=== PATIENT | female | born 1960 | race Two or more races ===

== ENCOUNTER → 2024-08-24 | Outpatient (CLI) | payer OTHER, SELFPAY ==
[2024-08-24 17:56] LABS: Glucose Estimated Average 324 mg/dL (80-131); Hemoglobin A1C 12.9 % Hgb (4.8-6.0)
== END | disposition home or self-care (01) ==
LOC: COPL 15:16
PROVIDERS: PCP Family Medicine; Referring Provider Family Medicine; Visit Provider Family Medicine
DX: E11.65 Type 2 diabetes mellitus with hyperglycemia (principal)
CPT/HCPCS: 36415; 83036

== ENCOUNTER → 2024-09-29 | Outpatient (CLI) | payer OTHER, SELFPAY ==
--- NOTE | 2024-09-29 11:00 | XR_ITS ---
Examination: Screening digital mammography, bilateral Computer aided detection 3-D breast Tomosynthesis, bilateral Date and time of exam: September 29, 2024 1052 hours No priors Indication: Screening Technique: Nonmagnified MLO, CC views of the breasts to been obtained, reconstructed from 3-D Tomosynthesis images. R2 computer aided detection program utilized for evaluation of suspicious masses and/or abnormal calcifications. 3-D Tomosynthesis images obtained. Findings: The breasts are heterogeneously dense, which may obscure small masses Skin lesion left breast Benign calcifications 16 mm focal asymmetry upper outer left breast Impression: BI-RADS Category 0: Incomplete: Need additional imaging evaluation 16 mm focal asymmetry upper outer left breast, recommend follow-up spot tomographic views of this asymmetry as well as left breast sonography to complete workup
== END | disposition home or self-care (01) ==
LOC: CDIM 10:45
PROVIDERS: PCP Family Medicine; Referring Provider Family Medicine; Visit Provider Family Medicine
DX: Z12.31 Encounter for screening mammogram for malignant neoplasm of breast (principal); R92.8 Other abnormal and inconclusive findings on diagnostic imaging of breast; N64.89 Other specified disorders of breast
CPT/HCPCS: 77063; 77067

== ENCOUNTER → 2024-10-13 | Outpatient (CLI) | payer OTHER, SELFPAY ==
--- NOTE | 2024-10-13 16:00 | XR_ITS ---
Examination: CT left knee, without contrast. 2-D sagittal reconstructions. 2-D coronal reconstructions. 3-D reconstructions. Date and time of exam:October 13, 2024 1547 hours INDICATIONS: Left knee pain several years CTDI: vol (mGy):8.17 DLP: (mGycm):243 Technique: Multiple 1.25 mm axial sections of the left knee without intravenous contrast have been obtained. 2-D sagittal and coronal reconstructions have been obtained. 3-D reconstructions have been obtained. Low dose protocols were performed. One or more of the following dose reduction techniques were used; automated exposure control, adjustment of the mA and/or KV according to patient size, use of iterative reconstruction technique. 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
== END | disposition home or self-care (01) ==
LOC: CCTX 15:24
PROVIDERS: PCP Nurse Practitioner Family; Referring Provider Nurse Practitioner Family; Visit Provider Nurse Practitioner Family
DX: M17.12 Unilateral primary osteoarthritis, left knee (principal); M25.862 Other specified joint disorders, left knee
CPT/HCPCS: 73700

== ENCOUNTER 2024-11-12 19:28 | Emergency (ER) | payer OTHER, SELFPAY ==
--- NOTE | 2024-11-12 19:33 | XR_ITS ---
Examination: CT brain head without contrast. 2-D sagittal coronal reconstructions Date and time of exam:November 12, 2024 2137 hours Comparison January 01, 2024 INDICATIONS: Onset slurred speech confusion beginning 12 hours ago CTDI: vol (mGy):53.3 DLP: (mGycm):1042 Technique: Multiple CT axial sections of the brain have been obtained, 5 mm slice thickness. Contrast has not been administered. 2-D sagittal, coronal reconstructions have been obtained Low dose protocols were performed. One or more of the following dose reduction techniques were used; automated exposure control, adjustment of the mA and/or KV according to patient size, use of iterative reconstruction technique. Findings: No significant ventricular enlargement. Old infarct right cerebellar hemisphere Intra-axial or extra-axial hemorrhage density is not seen. No mass effect or midline shift Basal cisterns are not remarkable. Fourth ventricle is midline. Cranial vault intact. Impression: Negative for acute hemorrhage, mass effect or midline shift Consider brain MRI follow-up, stroke protocol
--- NOTE | 2024-11-12 19:34 | EDNOTE_ITS ---
<Statement entered by Mere Cavanaugh MD - 11/28/24 07:19> As co-signing physician, I was present and available for consult prn. I concur with the plan and care as documented by the midlevel provider. ED General RME/HPI General Chief complaint: Altered Mental Status Stated complaint: POSSIBLE STROKE LIKE SYMPTOMS Time Seen by Provider: 11/12/24 19:33 Arrival date/time: 11/12/24 19:28 CC: Altered mental status HPI last known normal was November 11 in the afternoon, greater than 24 hours ago. Patient has slurred speech. EMS reports stable vital signs and route state the patient also was recently given a liquid cough medicine. Patient denies fall. NIH scale is 0, patient is awake alert oriented with slurred speech. Related Data Home Medications ?Medication ?Instructions ?Recorded ?Confirmed hydrocodone 5 mg-acetaminophen 325 1 tab PO Q6HR PRN Pain (Scale 10/05/22 02/05/24 mg tablet Score 4-6) pantoprazole 40 mg tablet,delayed 40 mg PO DAILY 10/05/22 02/05/24 release furosemide 40 mg tablet 40 mg PO DAILY diuretic 01/03/24 02/05/24 Previous Rx's ?Medication ?Instructions ?Recorded blood sugar diagnostic (Accu-Chek #100 ea 02/18/24 Guide test strips) blood-glucose meter (Accu-Chek #1 02/18/24 Guide Glucose Meter) insulin glargine 100 unit/mL 42 unit (0.42 mL) subcut HS #10 mL 02/18/24 subcutaneous solution (Lantus U-100 Insulin) insulin regular human 100 unit/mL 14 unit (0.14 mL) subcut TIDWM #10 02/18/24 injection solution (Humulin R mL Regular U-100 Insulin) lancing device with lancets kit #1 ea 02/18/24 (Accu-Chek Multiclix Lancet kit) memantine 5 mg tablet 5 mg PO BID #60 tabs 02/18/24 sitagliptin phosphate 100 mg 100 mg PO QDAY #30 tabs 02/18/24 tablet (Januvia) trazodone 100 mg tablet 100 mg PO QDAY #30 tabs 02/18/24 ciprofloxacin HCl 500 mg tablet 500 mg PO BID #14 tabs 11/12/24 Allergies Allergy/AdvReac Type Severity Reaction Status Date / Time Penicillins Allergy Verified 05/12/22 16:43 Review of Systems Review of Systems Narrative Review of Systems: GEN: No fever, no chills, no weight loss EYES: No discharge, no visual changes, no pain HEENT: No ear pain, no congestion, no sore throat PULM: No shortness of breath, no cough, no congestion CV: No chest pain, no dyspnea on exertion, no palpitations GI: No nausea, no vomiting, no diarrhea, no pain, no constipation : No frequency, no urgency, no dysuria MUSC/SKEL: No joint pain, no back pain SKIN: No rash PSYCH: No hallucinations, no depression HEME/LYMPH: No easy bleeding or bruising tendencies NEURO: No weakness, no headache Past Medical History Past Medical History NEUROLOGIC: Positive Cerebrovascular Accident and Alzheimer's Disease CARDIAC: Positive Hypercholesterolemia and Hypertension; Negative Cardiac Disorders, Myocardial Infarction, Cardiac Arrhythmia, Atrial Fibrillation, Angina, Coronary Artery Disease, Atherosclerotic Heart Disease or Congestive Heart Failure (patient denies) RESPIRATORY: Negative Chronic Obstructive Pulmonary Disease (COPD) GASTROINTESTINAL: Positive Gastrointestinal Disorders and Gall Bladder Disease GENITOURINARY: Negative Renal Disease ENDOCRINE: Positive Diabetes Mellitus Type 2 and Systemic Lupus Erythematosus; Negative Diabetes Mellitus Type 1 Social History SMOKING STATUS: Current every day smoker SUBSTANCE USE: does not use ED Exam Narrative Physical exam: [General: Not in any acute distress Head normocephalic HEENT: Within acceptable limits Neck is supple nontender Chest equal chest rise nontender to palpation Respiratory: Clear to auscultation no wheezes crackles or rubs CV: Rate rhythm is regular no murmurs rubs or clicks Abdomen is distended secondary to body habitus soft nontender no masses positive bowel sounds all 4 quadrants Back: No CVA tenderness no spinous process tenderness from cervical spine thoracic and lumbar spine Skin: Intact no petechiae rash induration ulceration or crepitus Extremities: Moving all extremity against resistance cap refill less than 2 seconds neurosensory intact Neuro: Awake alert oriented x2, person and place, Glascow coma 15 no focal deficits] Course Quality Measures none Orders Category Date Time Status CT head/brain wo con Stat Exams 11/12/24 19:33 Completed B-Type Natriuretic Peptide Stat Lab 11/12/24 19:32 Completed CBC Stat Lab 11/12/24 19:32 Completed Comprehensive Metabolic Panel Stat Lab 11/12/24 19:32 Completed Drug Screen,Urine Stat Lab 11/12/24 20:32 Completed LDH (Lactate Dehydrogenase) Stat Lab 11/12/24 19:32 Completed Magnesium Stat Lab 11/12/24 19:32 Completed Partial Thromboplastin Time Stat Lab 11/12/24 19:32 Completed Prothrombin Time with INR Stat Lab 11/12/24 19:32 Completed Urinalysis Stat Lab 11/12/24 20:32 Completed cefTRIAXone/D5w 1gm IV premix [Rocephin/D5w 1gm IV Med 11/12/24 21:32 Discontinued premix] 50 ml IV X1 Vital Signs Vital signs: Vital Signs Temperature 98.7 F 11/12/24 20:00 Pulse Rate 104 H 11/12/24 20:00 Respiratory Rate 18 11/12/24 20:00 Blood Pressure 118/77 11/12/24 20:00 Pulse Oximetry (%) 95 11/12/24 20:00 Oxygen Delivery Method Room Air 11/12/24 20:00 [facility] Patient data External records reviewed:: [facility] previous records and EMS form Clinical information provided by:: patient and EMS Social determinants that could affect healthcare access:: none Patient has the following chronic illnesses:: TIA How is presenting disease/condition affected by chronic disease/condition?: u neffected by Evaluation data The following diagnostics were reviewed and interpreted by me:: lab results and radiology exam(s) Lab and/or radiology exams considered but not ordered:: None Interpretation Summary: UTI Medications Medications considered but not ordered:: None Medication administrations:: Medication Administration History Discontinued Medications Ceftriaxone Sodium/Dextrose (Rocephin/D5w 1gm Iv Premix) 50 mls @ 100 mls/hr IV X1 ONE Stop: 11/12/24 22:01 Last Admin: 11/12/24 22:05 Dose: 100 mls/hr Documented By: CONNOR None Consultations Consultation(s) initiated? (list below): No Diagnosis Differential Diagnosis ED Complaint MDM: Closed head injury intracranial hemorrhage UTI Most likely diagnosis given after review of the tests above:: UTI Admission Indicated Admission indicated?: not indicated Explain why admission is indicated or not indicated:: Stable for discharge Admission Request Was there a request for admission?: No Disposition Plan Disposition Plan: Discharge Discharge Attestation Discharge Attestation: The patient and all family members were given an opportunity to ask questions and understood the discharge instructions. Discharge instructions specifically effects, indications for sooner follow up or return to the emergency department, and the expected course of current diagnosis. Patient condition: Stable Medical Decision Making Differential Diagnosis Differential Diagnosis: Closed head injury intracranial hemorrhage UTI Lab Data 11/12/24 19:32 11/12/24 19:32 Labs: Lab Results 11/12/24 11/12/24 Range/Units 19:32 20:32 WBC 9.6 (3.6-11.0) Thou/mm3 RBC 3.63 L (4.00-5.20) Miln/mm3 Hgb 10.9 L (12.0-16.0) g/dL Hct 31.6 L (36.0-46.0) % MCV 87 (80-100) fL MCH 30.0 (25.0-35.0) pg MCHC 34.5 (31.0-37.0) g/dl RDW Std Deviation 39.3 (36.4-46.3) fL Plt Count 182 (140-440) Thou/mm3 Neut % (Auto) 72 (37-80) % Lymph % (Auto) 19 (10-50) % Brule % (Auto) 7 (0-12) % Eos % (Auto) 1 (0-10) % Baso % (Auto) 0 (0-2.5) % Neut # (Auto) 7.0 (1.8-7.7) Thou/mm3 Lymph # (Auto) 1.9 (1.0-4.8) Thou/mm3 Brule # (Auto) 0.6 (0.0-0.8) Thou/mm3 Eos # (Auto) 0.1 (0.0-0.5) Thou/mm3 Baso # (Auto) 0.0 (0.0-0.2) Thou/mm3 Immature Gran # (Auto) 0.05 H (0.00-0.00) Thou/mm3 Absolute Nucleated RBC 0.00 (0.00-0.00) Thou/mm3 Immature Gran % 1 H (0-0) % Nucleated RBC % 0 (0) /100 WBC PT 11.0 (9.0-12.2) Seconds INR 1.0 (0.9-1.3) APTT 29.0 (22.0-36.0) Seconds Sodium 136 (136-145) mMol/L Potassium 3.9 (3.4-5.1) mMol/L Chloride 102 (98-107) mMol/L Carbon Dioxide 26.6 (20.0-31.0) mMol/L Anion Gap 7 (7-16) BUN 25 H (9-23) mg/dL Creatinine 1.2 (0.6-1.3) mg/dL Estim Creat Clear Calc 54.5 L (>60) mL/min eGFR 51 L (60 - ) See Note BUN/Creatinine Ratio 21 H (12-20) Ratio Glucose 134 H (74-106) mg/dL Calculated Osmolality 278 (275-295) Calcium 9.1 (8.3-10.6) mg/dL Corrected Calcium 9.1 (8.5-10.1) mg/dL Magnesium 1.6 (1.6-2.6) mg/dL Total Bilirubin 0.3 (0.3-1.2) mg/dL AST 15 (0-34) U/L ALT 18 (10-49) U/L Alkaline Phosphatase 63 (46-116) U/L Lactate Dehydrogenase 205 (120-246) U/L B-Natriuretic Peptide < 20 (0-100) pg/mL Total Protein 7.0 (5.7-8.2) gm/dL Albumin 4.1 (3.4-4.8) gm/dL Globulin 2.9 (2.3-3.5) gm/dL Albumin/Globulin Ratio 1.4 (1.2-2.2) Ur Collection Type Clean Catch Urine Color Yellow (Lt Yel-Yel) Urine Clarity Turbid A (Clear/Hazy) Urine pH 6.0 (5.0-7.0) Ur Specific [place] 1.013 (1.001-1.035) Urine Protein 1+ A (Neg - Trace) Urine Glucose (UA) 1+ A (Negative) Urine Ketones Negative (Negative) Urine Blood 1+ A (Negative) Urine Nitrite Positive (Negative) Urine Bilirubin Negative (Negative) Urine Urobilinogen (Auto) Negative (0.0-1.0) mg/dL Ur Leukocyte Esterase Positive (Negative) Urine RBC 8 H (0-3) /hpf Urine WBC 635 H (0-5) /hpf Ur Squamous Epith Cells < 1 (0-5) /hpf Urine Bacteria 1+ A (None) Urine Opiates Screen Positive A (Negative) Urine Fentanyl Screen Negative (Negative) Ur Barbiturates Screen Negative (Negative) U Amphetamin/Meth Scrn Negative (Negative) U Benzodiazepines Scrn Negative (Negative) U Cocaine Metab Screen Negative (Negative) U Marijuana (THC) Screen Positive A (Negative) Discharge Plan Plan Patient Disposition: HOME (Self Care) Patient condition on transfer: Stable Prescriptions/Referrals Prescriptions/Med Rec: New ciprofloxacin HCl 500 mg tablet 500 mg PO BID Qty: 14 0RF No Action furosemide 40 mg tablet 40 mg PO DAILY hydrocodone-acetaminophen 5-325 mg tablet 1 tab PO Q6HR PRN (Reason: Pain (Scale Score 4-6)) pantoprazole 40 mg tablet,delayed release (DR/EC) 40 mg PO DAILY Patient Comments: TAKE ONE TABLET BY MOUTH EVERY DAY insulin glargine [Lantus U-100 Insulin] 100 unit/mL Solution 42 unit subcut HS Qty: 10 1RF Humulin R Regular U-100 Insuln 100 unit/mL Solution 14 unit subcut TIDWM Qty: 10 1RF trazodone 100 mg tablet 100 mg PO QDAY Qty: 30 0RF (DME) blood-glucose meter [Accu-Chek Guide Glucose Meter] Misc See Rx Instructions .Route Qty: 1 0RF Rx Instructions: As directed (DME) Accu-Chek Guide test strips Strip See Rx Instructions .Route Qty: 100 0RF Rx Instructions: As directed (DME) lancing device with lancets [Accu-Chek Multiclix Lancet] Kit See Rx Instructions .Route Qty: 1 0RF Rx Instructions: As directed Januvia 100 mg tablet 100 mg PO QDAY Qty: 30 0RF memantine 5 mg tablet 5 mg PO BID Qty: 60 0RF Referrals: No Primary/Family,Physician [Primary Care Provider] - In 1 week Problem List Clinical Impression: Urinary tract infection Patient/Caregiver Discharge Instructions Other Activity Instructions:: Avoid taking the cough syrup as you have in the past take the antibiotics as prescribed do not drink any alcohol during that time. Education Materials: ED CYSTITIS Female Adult Print Language: Croatian Stand Alone Forms: Gertrudis Award Info., Work/School Release, Patient Portal Info Letter PA/ROADWAY TECHNICIAN Supervising Physician PA/ROADWAY TECHNICIAN Supervising Physician: Yong Ly ENP
[2024-11-12 19:39] LABS: Basophils % (Auto) 0 % (0-2.5); Eosinophils # (Auto) 0.1 Thou/mm3 (0.0-0.5); Eosinophils % (Auto) 1 % (0-10); Hematocrit 31.6 % (36.0-46.0); Hemoglobin 10.9 g/dL (12.0-16.0); Immature Granulocytes % (Auto) 1 % (0-0); Immature Granulocytes Auto 0.05 Thou/mm3 (0.00-0.00); Lymphocytes # (Auto) 1.9 Thou/mm3 (1.0-4.8); Lymphocytes % (Auto) 19 % (10-50); Mean Corpuscular HGB Conc 34.5 g/dl (31.0-37.0); Mean Corpuscular Volume 87 fL (80-100); Monocytes # (Auto) 0.6 Thou/mm3 (0.0-0.8); Monocytes % (Auto) 7 % (0-12); Neutrophils % (Auto) 72 % (37-80); Nucleated Red Blood Cell % 0 /100 WBC (0); Platelet Count 182 Thou/mm3 (140-440); RDW Standard Deviation 39.3 fL (36.4-46.3); Red Blood Count 3.63 Miln/mm3 (4.00-5.20); White Blood Count 9.6 Thou/mm3 (3.6-11.0)
[2024-11-12 20:00] VITALS: BP 118/77; PULSE 104; RESP 18; TEMP 37.1; O2SAT 95
[2024-11-12 20:02] VITALS: BMI 37.9
[2024-11-12 20:04] LABS: B-Type Natriuretic Peptide < 20 pg/mL (0-100)
[2024-11-12 20:05] LABS: Alanine Aminotransferase 18 U/L (10-49); Albumin, Serum 4.1 gm/dL (3.4-4.8); Albumin/Globulin Ratio 1.4 (1.2-2.2); Alkaline Phosphatase 63 U/L (46-116); Anion Gap 7 (7-16); Aspartate Amino Transferase 15 U/L (0-34); BUN/Creatinine Ratio 21 Ratio (12-20); Bilirubin,Total 0.3 mg/dL (0.3-1.2); Blood Urea Nitrogen 25 mg/dL (9-23); Calcium 9.1 mg/dL (8.3-10.6); Calcium (Corrected) 9.1 mg/dL (8.5-10.1); Carbon Dioxide 26.6 mMol/L (20.0-31.0); Chloride 102 mMol/L (98-107); Creatinine (Component) 1.2 mg/dL (0.6-1.3); Estimated Creatinine Clearance 54.5 mL/min (>60); Globulin 2.9 gm/dL (2.3-3.5); Glucose 134 mg/dL (74-106); LDH (Lactate Dehydrogenase) 205 U/L (120-246); Magnesium 1.6 mg/dL (1.6-2.6); Osmolality,Calculated 278 (275-295); Potassium 3.9 mMol/L (3.4-5.1); Sodium 136 mMol/L (136-145); eGFR 51 See Note
[2024-11-12 20:13] VITALS: PULSE 108; RESP 18; O2SAT 94
[2024-11-12 21:11] LABS: Collection Type, Urine Clean Catch
[2024-11-12 21:26] LABS: Bacteria,Urine 1+; Bilirubin,Urine Negative (Negative); Blood,Urine 1+ (Negative); Clarity,Urine Turbid (Clear/Hazy); Color,Urine Yellow (Lt Yel-Yel); Glucose, Urine 1+ (Negative); Ketones,Urine Negative (Negative); Leukocyte Esterase,Urine Positive (Negative); Nitrite,Urine Positive (Negative); Protein,Urine 1+ (Neg - Trace); RBC,Urine 8 /hpf (0-3); Specific Gravity,Urine 1.013 (1.001-1.035); Squamous Epithelial Cell,Urine < 1 /hpf (0-5); Urobilinogen,Urine Negative mg/dL (0.0-1.0); WBC,Urine 635 /hpf (0-5)
[2024-11-12 21:38] LABS: Amphetamine/Methamp Scrn,U Negative (Negative); Barbiturate Screen,Urine Negative (Negative); Benzodiazepines Screen,Urine Negative (Negative); Benzoylecgonine Screen, Ur Negative (Negative); Fentanyl Screen,Urine Negative (Negative); Opiate Screen,Urine Positive (Negative); THC Screen,Urine Positive (Negative)
[2024-11-12] MEDS: cefTRIAXone/D5w 1gm IV premix 50 ML IV (22:05)
[2024-11-12 22:06] VITALS: BP 173/87; PULSE 116; RESP 18; O2SAT 95
[2024-11-12 22:52] VITALS: BP 138/64; PULSE 97; RESP 18; TEMP 37.1; O2SAT 95
== END 2024-11-12 23:17 | disposition home or self-care (01) ==
PROVIDERS: Registered Nurse General Practice; Emergency Provider Emergency Medicine
DX: R41.82 Altered mental status, unspecified (principal); N39.0 Urinary tract infection, site not specified; R47.81 Slurred speech
CPT/HCPCS: 36415; 70450; 80053; 80307; 81001; 83615; 83735; 83880; 85025; 85610; 85730; 99284; J0696

== ENCOUNTER → 2024-11-17 | Outpatient (CLI) | payer OTHER, SELFPAY ==
[2024-11-17 15:31] LABS: Glucose Estimated Average 240 mg/dL (80-131)
[2024-11-17 15:37] LABS: Amphetamine/Methamp Scrn,U Negative (Negative); Barbiturate Screen,Urine Negative (Negative); Benzodiazepines Screen,Urine Negative (Negative); Benzoylecgonine Screen, Ur Negative (Negative); Fentanyl Screen,Urine Positive (Negative); Opiate Screen,Urine Positive (Negative); THC Screen,Urine Positive (Negative)
== END | disposition home or self-care (01) ==
LOC: COPL 13:37
PROVIDERS: PCP Family Medicine; Referring Provider Family Medicine; Visit Provider Family Medicine
DX: M54.2 Cervicalgia (principal); Z71.51 Drug abuse counseling and surveillance of drug abuser; E11.65 Type 2 diabetes mellitus with hyperglycemia
CPT/HCPCS: 36415; 80307; 83036

== ENCOUNTER 2024-11-21 11:27 | Emergency (ER) | payer OTHER, SELFPAY ==
[2024-11-21 11:28] VITALS: BMI 30.9
[2024-11-21 11:36] VITALS: BP 165/88; PULSE 92; RESP 16; TEMP 36.9; O2SAT 96
--- NOTE | 2024-11-21 11:48 | XR_ITS ---
Examination: Foot, left, 3 views Technique: AP, oblique, lateral views foot, 3 views Date and time of exam: 04/02/2025 1157 hours INDICATIONS: Onset foot pain today no trauma FINDINGS: Status post bunionectomy and first metatarsal osteotomy Severe osteopenia Soft tissue vascular calcification Old appearing fracture at the base of the proximal phalanx third digit, clinical correlation advised Plantar posterior bony calcaneal spurs. No santos cortical bone destruction IMPRESSION: Old appearing fracture base proximal phalanx third digit, clinical correlation advised
--- NOTE | 2024-11-21 14:28 | PD.EDANKLE ---
Lower Extremity Injury RME/HPI General Chief Complaint: Ankle/Foot Injury Stated Complaint: LEFT FOOT WITH BRUISING AND PAIN Time Seen by Provider: 11/21/24 11:35 Arrival date/time: 11/21/24 11:27 64-year-old female presents emergency dept complaints of left foot pain with bruising dorsal aspect left foot at the base of the third and fourth digits Limitations: no limitations Related Data Home Medications ?Medication ?Instructions ?Recorded ?Confirmed hydrocodone 5 mg-acetaminophen 325 1 tab PO Q6HR PRN Pain (Scale 10/05/22 02/05/24 mg tablet Score 4-6) pantoprazole 40 mg tablet,delayed 40 mg PO DAILY 10/05/22 02/05/24 release furosemide 40 mg tablet 40 mg PO DAILY diuretic 01/03/24 02/05/24 Previous Rx's ?Medication ?Instructions ?Recorded blood sugar diagnostic (Accu-Chek #100 ea 02/18/24 Guide test strips) blood-glucose meter (Accu-Chek #1 ea 02/18/24 Guide Glucose Meter) insulin glargine 100 unit/mL 42 unit (0.42 mL) subcut HS #10 mL 02/18/24 subcutaneous solution (Lantus U-100 Insulin) insulin regular human 100 unit/mL 14 unit (0.14 mL) subcut TIDWM #10 02/18/24 injection solution (Humulin R mL Regular U-100 Insulin) lancing device with lancets kit #1 ea 02/18/24 (Accu-Chek Multiclix Lancet kit) memantine 5 mg tablet 5 mg PO BID #60 tabs 02/18/24 sitagliptin phosphate 100 mg 100 mg PO QDAY #30 tabs 02/18/24 tablet (Januvia) trazodone 100 mg tablet 100 mg PO QDAY #30 tabs 02/18/24 ciprofloxacin HCl 500 mg tablet 500 mg PO BID #14 tabs 11/12/24 Allergies Allergy/AdvReac Type Severity Reaction Status Date / Time Penicillins Allergy Verified 11/21/24 11:29 Review of Systems Review of Systems Systems Reviewed: All systems reviewed, normal except as documented Constitutional Constitutional: Reports system reviewed and no additional complaints, except as documented, Denies fever(s) and Denies headache(s) Eyes Eyes: Reports system reviewed and no additional complaints, except as documented and Denies blurry vision ENT Ears, Nose, Mouth, and Throat: Reports system reviewed and no additional complaints, except as documented, Denies headache(s), Denies nasal congestion and Denies nasal discharge Cardiovascular Cardiovascular: Reports system reviewed and no additional complaints, except as documented, Denies chest pain and Denies dyspnea Respiratory Respiratory: Reports system reviewed and no additional complaints, except as documented, Denies chest congestion, Denies cough and Denies dyspnea Gastrointestinal Gastrointestinal: Reports system reviewed and no additional complaints, except as documented and Denies abdominal pain Musculoskeletal Musculoskeletal: Reports system reviewed and no additional complaints, except as documented, Reports arthralgias, Denies deformity and Reports other (Bruising left foot) Integumentary/Breasts Skin/Breast: Reports system reviewed and no additional complaints, except as documented and Denies rash Neurologic Neurologic: Reports system reviewed and no additional complaints, except as documented, Reports as per HPI and Denies headache(s) Past Medical History Past Medical History NEUROLOGIC: Positive Cerebrovascular Accident and Alzheimer's Disease CARDIAC: Positive Hypercholesterolemia and Hypertension; Negative Cardiac Disorders, Myocardial Infarction, Cardiac Arrhythmia, Atrial Fibrillation, Angina, Coronary Artery Disease, Atherosclerotic Heart Disease or Congestive Heart Failure RESPIRATORY: Negative Chronic Obstructive Pulmonary Disease (COPD) GASTROINTESTINAL: Positive Gastrointestinal Disorders and Gall Bladder Disease GENITOURINARY: Negative Renal Disease ENDOCRINE: Positive Diabetes Mellitus Type 2 and Systemic Lupus Erythematosus; Negative Diabetes Mellitus Type 1 Social History SMOKING STATUS: Current every day smoker SUBSTANCE USE: does not use ED Exam General Limitations: Present no limitations General appearance: Present alert and in no apparent distress Head Head exam: Present atraumatic, normocephalic and normal inspection Eye Eye exam: Present normal appearance, PERRL and EOMI ENT ENT exam: Present normal exam, normal oropharynx and mucous membranes moist Neck Neck exam: Present normal inspection, full ROM and trachea midline Chest Chest inspection: Present normal inspection and symmetric chest wall rise Respiratory Respiratory exam: Present normal lung sounds bilaterally Cardiovascular Cardiovascular exam: Present regular rate, normal rhythm and normal heart sounds Abdominal Exam Abdominal exam: Present soft and normal bowel sounds Extremities Exam Extremities exam: Present full ROM and tenderness (Bruising left foot) Back Exam Back exam: Present normal inspection and full ROM Neurological Exam Neurological exam: Present alert, oriented X3 and CN II-XII intact Psychiatric Psychiatric exam: Present normal affect and normal mood Skin Skin exam: Present warm, dry and other (Bruising left foot) Course Quality Measures none Orders Category Date Time Status XR foot comp LT min 3V Stat Exams 11/21/24 11:48 Completed Vital Signs Vital signs: Vital Signs Temperature 98.5 F 11/21/24 11:36 Pulse Rate 92 11/21/24 11:36 Respiratory Rate 16 11/21/24 11:36 Blood Pressure 165/88 H 11/21/24 11:36 Pulse Oximetry (%) 96 11/21/24 11:36 Oxygen Delivery Method Room Air 11/21/24 11:36 O2 saturation 96% room air wnl Extremity Injury, Lower MDM Narrative MDM Narrative:: 64-year-old female presents emergency dept complaints of left foot pain with bruising dorsal aspect left foot at the base of the third and fourth digits On exam patient has tenderness left foot with bruising to the dorsal aspect left foot X-ray of the left foot obtained questionable fracture per radiologist Clinically patient does have fracture patient placed in Arden wrap given cast shoe Patient discharged home in no distress to follow-up with primary care doctor in the next 24 to 48 hours and for any worsening symptoms to return to the ER immediately Patient data External records reviewed:: [facility] previous records Clinical information provided by:: patient Social determinants that could affect healthcare access:: none Patient has the following chronic illnesses:: None How is presenting disease/condition affected by chronic disease/condition?: no chronic disease Evaluation data The following diagnostics were reviewed and interpreted by me:: radiology exam(s) Lab and/or radiology exams considered but not ordered:: Radiology obtain Interpretation Summary: Reviewed by me Medications / Prescriptions Medications or Prescriptions considered but not ordered:: Given Medication administrations:: Given Consultations Consultation(s) initiated? (list below): No Diagnosis Extremity Injury, Lower Differential Diagnosis: other (Foot fracture, foot sprain) Most likely diagnosis given after review of the tests above:: Foot fracture Admission Indicated Admission indicated?: not indicated Admission Request Was there a request for admission?: No Disposition Plan Disposition Plan: Discharge Discharge Attestation Discharge Attestation: The patient and all family members were given an opportunity to ask questions and understood the discharge instructions. Discharge instructions specifically effects, indications for sooner follow up or return to the emergency department, and the expected course of current diagnosis. Patient condition: Stable Discharge Plan Plan Patient Disposition: HOME (Self Care) Disposition Comment: Stable Prescriptions/Referrals Prescriptions/Med Rec: No Action furosemide 40 mg tablet 40 mg PO DAILY hydrocodone-acetaminophen 5-325 mg tablet 1 tab PO Q6HR PRN (Reason: Pain (Scale Score 4-6)) pantoprazole 40 mg tablet,delayed release (DR/EC) 40 mg PO DAILY Patient Comments: TAKE ONE TABLET BY MOUTH EVERY DAY insulin glargine [Lantus U-100 Insulin] 100 unit/mL Solution 42 unit subcut HS Qty: 10 1RF Humulin R Regular U-100 Insuln 100 unit/mL Solution 14 unit subcut TIDWM Qty: 10 1RF trazodone 100 mg tablet 100 mg PO QDAY Qty: 30 0RF (DME) blood-glucose meter [Accu-Chek Guide Glucose Meter] Misc See Rx Instructions .Route Qty: 1 0RF Rx Instructions: As directed (DME) Accu-Chek Guide test strips Strip See Rx Instructions .Route Qty: 100 0RF Rx Instructions: As directed (DME) lancing device with lancets [Accu-Chek Multiclix Lancet] Kit See Rx Instructions .Route Qty: 1 0RF Rx Instructions: As directed Januvia 100 mg tablet 100 mg PO QDAY Qty: 30 0RF memantine 5 mg tablet 5 mg PO BID Qty: 60 0RF ciprofloxacin HCl 500 mg tablet 500 mg PO BID Qty: 14 0RF Referrals: Zacarias Luis MD [Primary Care Provider] - In 1 week Problem List Clinical Impression: Fracture of toe of left foot Patient/Caregiver Discharge Instructions Education Materials: ED Fracture, Foot Additional Instructions: Please follow up with your primary care doctor in the next 24-48hrs for any worsening symptoms return here immediately Please remain nonweightbearing on left foot x 4 weeks Print Language: Kyrgyz Stand Alone Forms: Gertrudis Award Info., Patient Portal Info Letter PA/CYLINDER VALVE REPAIRER Supervising Physician PA/DEYANIRA Supervising Physician: Dr Vann
== END 2024-11-21 15:05 | disposition home or self-care (01) ==
PROVIDERS: Emergency Provider Emergency Medicine; PCP Family Medicine
DX: S90.32XA Contusion of left foot, initial encounter (principal); X58.XXXA Exposure to other specified factors, initial encounter
CPT/HCPCS: 73630; 99283

== ENCOUNTER → 2024-12-20 | Outpatient (CLI) | payer OTHER, SELFPAY ==
[2024-12-20 13:29] LABS: Misc Send Out* See Sep Rpt
[2024-12-20 13:54] LABS: Amphetamine/Methamp Scrn,U Negative (Negative); Barbiturate Screen,Urine Negative (Negative); Benzodiazepines Screen,Urine Negative (Negative); Benzoylecgonine Screen, Ur Negative (Negative); Fentanyl Screen,Urine Negative (Negative); Opiate Screen,Urine Positive (Negative); THC Screen,Urine Negative (Negative)
== END | disposition home or self-care (01) ==
LOC: COPL 13:05
PROVIDERS: PCP Internal Medicine; Referring Provider Internal Medicine; Visit Provider Internal Medicine
DX: M25.562 Pain in left knee (principal); Z79.891 Long term (current) use of opiate analgesic
CPT/HCPCS: 80307

== ENCOUNTER → 2025-02-08 | Outpatient (CLI) | payer OTHER, SELFPAY ==
--- NOTE | 2025-02-08 10:19 | XR_ITS ---
Examination: Knee, left , 3 views Technique: Knee AP, lateral, oblique 3 views Date and time of exam: February 08, 2025 1138 hours INDICATIONS: Patient fell 4 days ago with injury to the knee, knee pain. FINDINGS: On the AP view small radiolucency over the patella Moderate knee effusion Advanced narrowing medial joint space IMPRESSION: Recommend CT examination knee follow-up to exclude nondisplaced patellar fracture
== END | disposition home or self-care (01) ==
LOC: SDIM 09:54
PROVIDERS: PCP Family Medicine; Referring Provider Family Medicine; Visit Provider Family Medicine
DX: S89.92XA Unspecified injury of left lower leg, initial encounter (principal); W07.XXXA Fall from chair, initial encounter
CPT/HCPCS: 73562

== ENCOUNTER → 2025-02-19 | Outpatient (CLI) | payer OTHER, SELFPAY ==
[2025-02-19 12:40] LABS: Basophils % (Auto) 1 % (0-2.5); Eosinophils # (Auto) 0.3 Thou/mm3 (0.0-0.5); Eosinophils % (Auto) 4 % (0-10); Hematocrit 31.1 % (36.0-46.0); Hemoglobin 10.8 g/dL (12.0-16.0); Immature Granulocytes % (Auto) 0 % (0-0); Immature Granulocytes Auto 0.02 Thou/mm3 (0.00-0.00); Lymphocytes # (Auto) 2.4 Thou/mm3 (1.0-4.8); Lymphocytes % (Auto) 30 % (10-50); Mean Corpuscular HGB Conc 34.7 g/dl (31.0-37.0); Mean Corpuscular Hemoglobin 29.5 pg (25.0-35.0); Mean Corpuscular Volume 85 fL (80-100); Monocytes # (Auto) 0.4 Thou/mm3 (0.0-0.8); Monocytes % (Auto) 6 % (0-12); Neutrophils # (Auto) 4.8 Thou/mm3 (1.8-7.7); Neutrophils % (Auto) 60 % (37-80); Nucleated Red Blood Cell % 0 /100 WBC (0); Platelet Count 190 Thou/mm3 (140-440); RDW Standard Deviation 38.2 fL (36.4-46.3); Red Blood Count 3.66 Miln/mm3 (4.00-5.20)
[2025-02-19 12:50] LABS: Glucose Estimated Average 183 mg/dL (80-131)
[2025-02-19 12:58] LABS: Alanine Aminotransferase 14 U/L (10-49); Albumin, Serum 3.9 gm/dL (3.4-4.8); Alkaline Phosphatase 67 U/L (46-116); Anion Gap 8 (7-16); Aspartate Amino Transferase 15 U/L (0-34); BUN/Creatinine Ratio 19 Ratio (12-20); Bilirubin,Direct < 0.1 mg/dL (0.0-0.3); Bilirubin,Total 0.3 mg/dL (0.3-1.2); Blood Urea Nitrogen 19 mg/dL (9-23); Calcium 8.6 mg/dL (8.3-10.6); Carbon Dioxide 28.6 mMol/L (20.0-31.0); Cardiac Risk Estimate 4.1 RATIO (3.7-5.6); Chloride 105 mMol/L (98-107); Cholesterol 141 mg/dL (132-200); Glucose 210 mg/dL (74-106); HDL Cholesterol 34 mg/dL (40-60); LDL Cholesterol,Calculated 45 mg/dL (0-130); Osmolality,Calculated 291 (275-295); Sodium 142 mMol/L (136-145); Total Protein 6.9 gm/dL (5.7-8.2); Triglycerides 309 mg/dL (30-150); eGFR > 60 See Note
[2025-02-19 13:35] LABS: Creatinine MALB Rnd Ur 114 mg/dL (30-125); Microalbumin Creat Ratio 333 mg/gCrea (<30); Microalbumin, Random Urine > 380 mg/L (0-300)
[2025-02-23 06:40] LABS: Fecal Globin Result NOT DETECTED (NOT DETECTED)
== END | disposition home or self-care (01) ==
LOC: COPL 11:47
PROVIDERS: PCP Family Medicine; Referring Provider Family Medicine; Visit Provider Family Medicine
DX: Z00.00 Encounter for general adult medical examination without abnormal findings (principal); E11.65 Type 2 diabetes mellitus with hyperglycemia; I10 Essential (primary) hypertension; Z12.11 Encounter for screening for malignant neoplasm of colon; Z12.12 Encounter for screening for malignant neoplasm of rectum
CPT/HCPCS: 36415; 80048; 80061; 80076; 82043; 82274; 82570; 83036; 85025; G0328

== ENCOUNTER 2025-03-18 18:50 | Emergency (ER) | payer OTHER, SELFPAY ==
[2025-03-18 18:51] VITALS: BMI 31.8
[2025-03-18 21:28] VITALS: BP 127/78; PULSE 100; RESP 18; TEMP 36.9; O2SAT 100
--- NOTE | 2025-03-18 21:43 | XR_ITS ---
Examination: CT left knee, without contrast. 2-D sagittal reconstructions. 2-D coronal reconstructions. 3-D reconstructions. Date and time of exam:March 18, 2025 10:55 PM Comparison October 13, 2024 Knee pain and swelling beginning 4 months ago CTDI: vol (mGy):10.2 DLP: (mGycm):391 Technique: Multiple 1.25 mm axial sections of the left knee without intravenous contrast have been obtained. 2-D sagittal and coronal reconstructions have been obtained. 3-D reconstructions have been obtained. Low dose protocols were performed. One or more of the following dose reduction techniques were used; automated exposure control, adjustment of the mA and/or KV according to patient size, use of iterative reconstruction technique. Findings: Moderate osteopenia Advanced medial joint space narrowing with osteophyte formation Moderate to advanced osteoarthritis lateral and patellofemoral joints Large knee effusion, seen with internal derangement of the knee No fracture No cortical bone destruction Mild edema in the soft tissue medial knee IMPRESSION: Moderate to advanced tricompartment osteoarthritis Significant knee effusion Consider MRI knee without contrast follow-up
--- NOTE | 2025-03-18 21:43 | PD.EDLOWEX ---
Lower Extremity Injury RME/HPI General Chief Complaint: Extremity Injury, Lower Stated Complaint: LEFT LOWER AND UPPER LEG Time Seen by Provider: 03/18/25 19:06 Arrival date/time: 03/18/25 18:50 This is a case of 64-year-old female who came in in the emergency room due to left anterior knee pain for 2 months worsening of the pain this patient decided to sought consult here in the emergency room denies any left lower leg pain denies any calf tenderness Patient is on electric wheelchair Limitations: no limitations Related Data Home Medications ?Medication ?Instructions ?Recorded ?Confirmed hydrocodone 5 mg-acetaminophen 325 1 tab PO Q6HR PRN Pain (Scale 10/05/22 02/05/24 mg tablet Score 4-6) pantoprazole 40 mg tablet,delayed 40 mg PO DAILY 10/05/22 02/05/24 release furosemide 40 mg tablet 40 mg PO DAILY diuretic 01/03/24 02/05/24 Previous Rx's ?Medication ?Instructions ?Recorded blood sugar diagnostic (Accu-Chek #100 ea 02/18/24 Guide test strips) blood-glucose meter (Accu-Chek #1 ea 02/18/24 Guide Glucose Meter) insulin glargine 100 unit/mL 42 unit (0.42 mL) subcut HS #10 mL 02/18/24 subcutaneous solution (Lantus U-100 Insulin) insulin regular human 100 unit/mL 14 unit (0.14 mL) subcut TIDWM #10 02/18/24 injection solution (Humulin R mL Regular U-100 Insulin) lancing device with lancets kit #1 ea 02/18/24 (Accu-Chek Multiclix Lancet kit) memantine 5 mg tablet 5 mg PO BID #60 tabs 02/18/24 sitagliptin phosphate 100 mg 100 mg PO QDAY #30 tabs 02/18/24 tablet (Januvia) trazodone 100 mg tablet 100 mg PO QDAY #30 tabs 02/18/24 ciprofloxacin HCl 500 mg tablet 500 mg PO BID #14 tabs 11/12/24 meloxicam 7.5 mg tablet 7.5 mg PO QDAY PRN pain #10 tabs 03/19/25 tramadol 50 mg tablet 50 mg PO TID PRN pain #10 tabs 03/19/25 Allergies Allergy/AdvReac Type Severity Reaction Status Date / Time Penicillins Allergy Verified 03/18/25 18:54 Review of Systems Review of Systems Systems Reviewed: All systems reviewed, normal except as documented Constitutional Constitutional: Reports system reviewed and no additional complaints, except as documented and Reports as per HPI Cardiovascular Cardiovascular: Reports system reviewed and no additional complaints, except as documented and Reports as per HPI Respiratory Respiratory: Reports system reviewed and no additional complaints, except as documented and Reports as per HPI Gastrointestinal Gastrointestinal: Reports system reviewed and no additional complaints, except as documented and Reports as per HPI Musculoskeletal Musculoskeletal: Reports system reviewed and no additional complaints, except as documented, Reports arthralgias, Denies deformity and Denies tingling Neurologic Neurologic: Reports system reviewed and no additional complaints, except as documented, Reports as per HPI and Denies tingling Past Medical History Past Medical History NEUROLOGIC: Positive Cerebrovascular Accident and Alzheimer's Disease CARDIAC: Positive Hypercholesterolemia and Hypertension; Negative Cardiac Disorders, Myocardial Infarction, Cardiac Arrhythmia, Atrial Fibrillation, Angina, Coronary Artery Disease, Atherosclerotic Heart Disease or Congestive Heart Failure RESPIRATORY: Negative Chronic Obstructive Pulmonary Disease (COPD) GASTROINTESTINAL: Positive Gastrointestinal Disorders and Gall Bladder Disease GENITOURINARY: Negative Renal Disease ENDOCRINE: Positive Diabetes Mellitus Type 2 and Systemic Lupus Erythematosus; Negative Diabetes Mellitus Type 1 Social History SMOKING STATUS: Current every day smoker SUBSTANCE USE: does not use ED Exam General Limitations: Present no limitations General appearance: Present alert and in no apparent distress; Absent appears intoxicated, anxious, lethargic or obtunded Head Head exam: Present atraumatic Eye Eye exam: Present normal appearance, PERRL and EOMI ENT ENT exam: Present normal exam, normal oropharynx and mucous membranes moist Neck Neck exam: Present normal inspection, full ROM and trachea midline Chest Chest inspection: Present normal inspection and symmetric chest wall rise Respiratory Respiratory exam: Present normal lung sounds bilaterally; Absent respiratory distress, wheezes, stridor, accessory muscle use or prolonged expiratory phase Cardiovascular Cardiovascular exam: Present regular rate, normal rhythm and normal heart sounds; Absent bradycardia, tachycardia, irregular rhythm, systolic murmur or diastolic murmur Abdominal Exam Abdominal exam: Present soft and normal bowel sounds Expanded Lower Extremity Exam Hip/Pelvis exam: Present other Knee exam: Present tenderness (Noted moderate tenderness on the left anterior knee no prepatellar tenderness but with swelling no lateral or medial meniscus tenderness no dislocation no crepitation no ecchymosis no rash no redness ROM limited due to pain sensory intact reflex normal capillary refill less than 2 seconds negative T) Back Exam Back exam: Present normal inspection and full ROM Neurological Exam Neurological exam: Present alert, oriented X3, CN II-XII intact, reflexes normal and other (Patient is using motorized wheelchair); Absent motor sensory deficit Psychiatric Psychiatric exam: Present normal affect and normal mood Skin Skin exam: Present warm, dry, intact and normal color Course Quality Measures none Orders Category Date Time Status CT knee LT wo con Stat Exams 03/18/25 21:43 Completed Acetaminophen Tab [Tylenol Tab] Med 03/19/25 00:22 Discontinued 650 mg PO X1 ONE Vital Signs Vital signs: Vital Signs Temperature 98.4 F 03/18/25 21:28 Pulse Rate 100 03/18/25 21:28 Respiratory Rate 18 03/18/25 21:28 Blood Pressure 127/78 03/18/25 21:28 Pulse Oximetry (%) 100 03/18/25 21:28 Oxygen Delivery Method Room Air 03/18/25 21:28 Oxygen saturation is 100% in room air Extremity Injury, Lower MDM Narrative MDM Narrative:: This is a case of 64-year-old female who came in in the emergency room due to left anterior knee pain for 2 months worsening of the pain this patient decided to sought consult here in the emergency room denies any left lower leg pain denies any calf tenderness Patient is on electric wheelchair patient is awake alert oriented not in distress not toxic looking patient is using wheelchair motorized for ambulation patient noted to have a moderate tenderness on the left anterior knee with mild swelling no crepitation no deformity no redness no prepatellar tenderness no tenderness on the meniscus or lateral meniscus no calf tenderness negative Jordan sign ROM is limited sensory reflex were normal capillary refill is normal patient CT scan showed right compartmental osteoarthritis with effusion patient was given medication for pain patient was advised to follow-up with primary care physician to be referred to orthopedic surgeon the importance to see an orthopedic surgeon was discussed with the patient and she needs MRI to rule out osteoarthritis or meniscus or ligament injury patient was prescribed with pain medication she was also advised for any worsening symptoms or any emergent concerns she needs to return in the emergency room immediately or call 911 I do not think patient is having DVT since the patient has no calf tenderness or swelling on the left leg Patient was discharged with comfortable condition walking with stable gait. Patient verbalized no further complains explained diagnosis and answered patient question. Patient is comfortable with the proposed management plan including the need to follow up with his/her primary care physician and any specialist if applicable Discussed patient for any urgent condition or worsening sx, He/She needed to go to emergency room immediately or call 911. Patient acknowledge the responsibility to follow up as instructed and to monitor her/his symptoms. For any persistence of the symptoms for more than 3-5 days return precaution advised. Discussed the result of the test and was given printed discharge instruction Patient data External records reviewed:: [facility] previous records Clinical information provided by:: patient Social determinants that could affect healthcare access:: none Patient has the following chronic illnesses:: None How is presenting disease/condition affected by chronic disease/condition?: no chronic disease Evaluation data The following diagnostics were reviewed and interpreted by me:: radiology exam(s) Lab and/or radiology exams considered but not ordered:: Reviewed Interpretation Summary: Reviewed Medications / Prescriptions Medications or Prescriptions considered but not ordered:: Given Medication administrations:: Medication Administration History Discontinued Medications Acetaminophen (Acetaminophen 325 Mg Tablet) 650 mg PO X1 ONE Stop: 03/19/25 00:23 Last Admin: 03/19/25 00:35 Dose: 650 mg Documented By: KF Given Consultations Consultation(s) initiated? (list below): No Diagnosis Extremity Injury, Lower Differential Diagnosis: other (Osteoarthritis) Most likely diagnosis given after review of the tests above:: Osteoarthritis knee effusion Admission Indicated Admission indicated?: not indicated Explain why admission is indicated or not indicated:: Not indicated Admission Request Was there a request for admission?: No Admission Attestation Admission request attestation: Not indicated Disposition Plan Disposition Plan: Discharge Discharge Attestation Discharge Attestation: The patient and all family members were given an opportunity to ask questions and understood the discharge instructions. Discharge instructions specifically effects, indications for sooner follow up or return to the emergency department, and the expected course of current diagnosis. Patient condition: Stable Discharge Plan Plan Patient Disposition: HOME (Self Care) Patient condition on transfer: Stable Prescriptions/Referrals Prescriptions/Med Rec: New meloxicam 7.5 mg tablet 7.5 mg PO QDAY PRN (Reason: pain) Qty: 10 0RF tramadol 50 mg tablet 50 mg PO TID PRN (Reason: pain) Qty: 10 0RF No Action furosemide 40 mg tablet 40 mg PO DAILY hydrocodone-acetaminophen 5-325 mg tablet 1 tab PO Q6HR PRN (Reason: Pain (Scale Score 4-6)) pantoprazole 40 mg tablet,delayed release (DR/EC) 40 mg PO DAILY Patient Comments: TAKE ONE TABLET BY MOUTH EVERY DAY insulin glargine [Lantus U-100 Insulin] 100 unit/mL Solution 42 unit subcut HS Qty: 10 1RF Humulin R Regular U-100 Insuln 100 unit/mL Solution 14 unit subcut TIDWM Qty: 10 1RF trazodone 100 mg tablet 100 mg PO QDAY Qty: 30 0RF (DME) blood-glucose meter [Accu-Chek Guide Glucose Meter] Misc See Rx Instructions .Route Qty: 1 0RF Rx Instructions: As directed (DME) Accu-Chek Guide test strips Strip See Rx Instructions .Route Qty: 100 0RF Rx Instructions: As directed (DME) lancing device with lancets [Accu-Chek Multiclix Lancet] Kit See Rx Instructions .Route Qty: 1 0RF Rx Instructions: As directed Januvia 100 mg tablet 100 mg PO QDAY Qty: 30 0RF memantine 5 mg tablet 5 mg PO BID Qty: 60 0RF ciprofloxacin HCl 500 mg tablet 500 mg PO BID Qty: 14 0RF Referrals: Duglas Dunaway MD [Primary Care Provider] - In 1 week Problem List Clinical Impression: Chronic knee pain, Tricompartment osteoarthritis of knee, Effusion of knee Patient/Caregiver Discharge Instructions Education Materials: Knee Pain, ED Knee Effusion, ED Osteoarthritis Additional Instructions: Follow-up with your primary care physician in 2 days for reevaluation and to be referred to orthopedic surgeon for further evaluation and treatment of tricompartmental osteoarthritis and knee effusion for possible MRI worsening symptoms or any emergent concern call 911 or go to the nearest emergency room ice pack and warm compress as needed for pain elevate to decrease swelling take your medication as directed Print Language: Namibian Stand Alone Forms: Gertrudis Award Info., Patient Portal Info Letter PA/SENIOR CONSULTANT Supervising Physician PA/SENIOR CONSULTANT Supervising Physician: dr hughes
[2025-03-19] MEDS: ACETAMINOPHEN 325 MG TABLET 650 MG PO (00:35)
== END 2025-03-19 00:44 | disposition home or self-care (01) ==
PROVIDERS: Emergency Provider Emergency Medicine; PCP Family Medicine
DX: M17.12 Unilateral primary osteoarthritis, left knee (principal); M25.462 Effusion, left knee
CPT/HCPCS: 73700; 99284; A9270

== ENCOUNTER → 2025-03-30 | Outpatient (CLI) | payer OTHER, SELFPAY ==
--- NOTE | 2025-03-30 13:19 | XR_ITS ---
Examination: Breast ultrasound, unilateral, left Date and time of exam: March 30, 2025 1331 hours INDICATIONS: Mammogram September 29, 2024 16 mm focal asymmetry upper outer left breast Technique: Real-time delatorre scale ultrasonographic imaging performed left breast including all 4 quadrants as well as nipple retroareolar and axillary region. Findings: No cystic or solid mass IMPRESSION: BI-RADS Category 1: Negative study
--- NOTE | 2025-03-30 13:19 | XR_ITS ---
Examination: Diagnostic digital mammography, unilateral, LEFT Computer aided detection 3-D breast Tomosynthesis, unilateral Date and time of exam: March 30, 2025 1341 hours INDICATIONS: Mammogram September 29, 2024 16 mm focal asymmetry upper outer left breast Technique: Nonmagnified MLO, CC views of the left breast have been obtained, reconstructed from 3-D Tomosynthesis images. R2 computer aided detection program utilized for evaluation of suspicious masses and/or abnormal calcifications. 3-D Tomosynthesis images obtained. Findings: The breast is heterogeneously dense, which may obscure small masses Focal asymmetry remains on the spot compression CC view Impression: BI-RADS category 3: Probably benign findings One additional 6 month left mammogram follow-up is needed
== END | disposition home or self-care (01) ==
LOC: CDIM 13:06
PROVIDERS: PCP Internal Medicine; Referring Provider Family Medicine; Visit Provider Family Medicine
DX: R92.332 Mammographic heterogeneous density, left breast (principal); N64.89 Other specified disorders of breast
CPT/HCPCS: 76641; 77061; 77065; G0279

== ENCOUNTER → 2025-04-03 | Outpatient (CLI) | payer OTHER, SELFPAY ==
--- NOTE | 2025-04-03 14:30 | XR_ITS ---
Exam: MRI knee without contrast, left Date and time of exam: April 03, 2025 1448 hours INDICATIONS: Generalized knee pain 5 months instability swelling joint clicking stiffness Technique: Multiple axial, coronal, and sagittal sections on the knee have been obtained. T2-Weighted sagittal, fat-suppressed images, TR 3,500, TE 62, T2 weighted coronal fat-saturated images, TR 3,500, TE 62 Proton density sagittal sections, TR 1800, TE 31. T-1 weighted coronal images, TR 524, TE 13.0 Findings: Medial meniscus anterior horn intact. Medial meniscus, body vertical tear communicating inferior and superior articular surfaces, body the medial meniscus extruded from the joint space. Posterior horn medial meniscus horizontal linear tear communicating inferior articular surface. Lateral meniscus anterior horn is intact Lateral meniscus, body is intact Posterior horn lateral meniscus is intact Anterior cruciate ligament mild sprain. Posterior cruciate ligament appears intact. Knee effusion is large with suprapatellar joint plica Quadriceps and patellar tendons appear intact. There is no evidence of tendinosis. Inflammatory change or fracture of Hoffa's fat pad is not seen. Medial patellar facet demonstrates moderate thinning. Lateral patellar facet cartilage demonstrates moderate thinning. Trochlear cartilage demonstrates moderate thinning. Marrow signal adequate. Medial collateral ligament appears intact. No meniscocapsular separation is seen. Illiotibial band and fibular collateral ligament are intact. Biceps femoris tendons appear intact. Medial femoral condylar articular cartilage demonstrates moderate thinning. Lateral femoral condylar articular cartilage demonstratesmoderate thinning. Tibial plateau cartilage demonstrates moderate thinning. Impression: Tears of the body and posterior horn medial meniscus Mild sprain anterior cruciate ligament
== END | disposition home or self-care (01) ==
LOC: SMRI 14:05
PROVIDERS: PCP Family Medicine; Referring Provider Family Medicine; Visit Provider Family Medicine
DX: S83.512A Sprain of anterior cruciate ligament of left knee, initial encounter (principal); X58.XXXA Exposure to other specified factors, initial encounter; S83.242A Other tear of medial meniscus, current injury, left knee, initial encounter; M25.462 Effusion, left knee; M67.52 Plica syndrome, left knee
CPT/HCPCS: 73721

== ENCOUNTER 2025-04-15 18:06 | Emergency (ER) | payer OTHER, SELFPAY ==
[2025-04-15] VITALS (8 sets, daily range): BP systolic 92–128; BP diastolic 60–72; PULSE 68–105; RESP 15–18; TEMP 36.8–37.1; O2SAT 91–99; BMI 30.9
--- NOTE | 2025-04-15 18:56 | PD.EDWEAK ---
ED Weakness RME/HPI General Chief complaint: Weakness Stated complaint: weakness Time Seen by Provider: 04/15/25 18:43 Arrival date/time: 04/15/25 18:06 RME / HPI RME / HPI Narrative: 64-year-old female, with a past medical history of insulin-dependent diabetes, dementia on memantine, and chronic pain, presents to the ED via EMS with a complaint of generalized weakness and diarrhea for the past 5 days. She denies any fever or chills, cough or shortness of breath, nausea or vomiting, abdominal pain or flank pain. She denies any dysuria or urinary frequency. She denies any melena. Related Data Home Medications ?Medication ?Instructions ?Recorded ?Confirmed hydrocodone 5 mg-acetaminophen 325 1 tab PO Q6HR PRN Pain (Scale 10/05/22 02/05/24 mg tablet Score 4-6) pantoprazole 40 mg tablet,delayed 40 mg PO DAILY 10/05/22 02/05/24 release furosemide 40 mg tablet 40 mg PO DAILY diuretic 01/03/24 02/05/24 Previous Rx's ?Medication ?Instructions ?Recorded blood sugar diagnostic (Accu-Chek #100 ea 02/18/24 Guide test strips) blood-glucose meter (Accu-Chek #1 ea 02/18/24 Guide Glucose Meter) insulin glargine 100 unit/mL 42 unit (0.42 mL) subcut HS #10 mL 02/18/24 subcutaneous solution (Lantus U-100 Insulin) insulin regular human 100 unit/mL 14 unit (0.14 mL) subcut TIDWM #10 02/18/24 injection solution (Humulin R mL Regular U-100 Insulin) lancing device with lancets kit #1 ea 02/18/24 (Accu-Chek Multiclix Lancet kit) memantine 5 mg tablet 5 mg PO BID #60 tabs 02/18/24 sitagliptin phosphate 100 mg 100 mg PO QDAY #30 tabs 02/18/24 tablet (Januvia) trazodone 100 mg tablet 100 mg PO QDAY #30 tabs 02/18/24 ciprofloxacin HCl 500 mg tablet 500 mg PO BID #14 tabs 11/12/24 meloxicam 7.5 mg tablet 7.5 mg PO QDAY PRN pain #10 tabs 06/02/25 tramadol 50 mg tablet 50 mg PO TID PRN pain #10 tabs 03/19/25 ciprofloxacin HCl 500 mg tablet 500 mg PO BID 7 days #14 tabs 04/15/25 (Cipro) Allergies Allergy/AdvReac Type Severity Reaction Status Date / Time Penicillins Allergy Verified 04/15/25 18:46 Review of Systems Review of Systems Systems Reviewed: All systems reviewed, normal except as documented Past Medical History Past Medical History NEUROLOGIC: Positive Cerebrovascular Accident and Alzheimer's Disease CARDIAC: Positive Hypercholesterolemia and Hypertension; Negative Cardiac Disorders, Myocardial Infarction, Cardiac Arrhythmia, Atrial Fibrillation, Angina, Coronary Artery Disease, Atherosclerotic Heart Disease or Congestive Heart Failure RESPIRATORY: Negative Chronic Obstructive Pulmonary Disease (COPD) GASTROINTESTINAL: Positive Gastrointestinal Disorders and Gall Bladder Disease GENITOURINARY: Negative Renal Disease ENDOCRINE: Positive Diabetes Mellitus Type 2 and Systemic Lupus Erythematosus; Negative Diabetes Mellitus Type 1 Social History SMOKING STATUS: Current some day smoker SUBSTANCE USE: does not use ED Exam Narrative Physical exam: 64-year-old female, lying on gurney, no respiratory distress noted. Vital signs: Blood pressure 124/71, pulse 91, respirations 18 and nonlabored, temperature 98.7, O2 sat 95% on room air. Lungs are clear, cardiovascular regular rate and rhythm without murmurs. Bowel sounds are present x 4, abdomen is soft and nontender. No lower extremity pitting edema noted. Moves all extremities well. Course Course Course Narrative: Labs reveal negative COVID and negative influenza A/B. CBC reveals a normal white count of 9.6, minimally low H&H of 11.0/31.3 with normal platelets. Coags are normal. Chemistry panel reveals normal electrolytes, normal BUN and creatinine, glucose is elevated at 217, phosphorus and magnesium are normal, LFTs are normal. Troponin is less than 0.020. BNP is less than 20, serum acetone is negative. Urinalysis reveals turbid light yellow urine with a specific gravity of 1.011 with trace protein, negative nitrites, positive leukocyte esterase, 11 RBCs, 156 WBCs, rare bacteria and 8 squamous epithelial cells. Chest x-ray ordered and pending results. EKG reveals sinus rhythm at a rate of 93 with no T wave or ST changes. Patient given Cipro 500mg PO Quality Measures none Orders Category Date Time Status Bedside COVID-19 Antigen Test NOW Care 04/15/25 19:04 Active Bedside Influenza A&B Antigen Test NOW Care 04/15/25 19:05 Completed Uniform Attendant Q4H START 00 Care 04/15/25 20:10 Active EKG (ED ONLY) *Do not use* NOW Care 04/15/25 19:04 Completed Orthostatic Vitals NOW Care 04/15/25 19:04 Active EKG (ED Only) Stat Exams 04/15/25 19:04 Draft XR chest 1V portable Stat Exams 04/15/25 19:04 Taken B-Type Natriuretic Peptide Stat Lab 04/15/25 19:19 Completed Beta Hydroxybutyrate Stat Lab 04/15/25 19:19 Completed CBC Stat Lab 04/15/25 19:19 Completed Comprehensive Metabolic Panel Stat Lab 04/15/25 19:19 Completed Magnesium Stat Lab 04/15/25 19:19 Completed Partial Thromboplastin Time Stat Lab 04/15/25 19:19 Completed Phosphorous Stat Lab 04/15/25 19:19 Completed Prothrombin Time with INR Stat Lab 04/15/25 19:19 Completed Troponin I Stat Lab 04/15/25 19:19 Completed Urinalysis Stat Lab 04/15/25 14:52 Completed Urine Culture Stat Lab 04/15/25 14:52 Received Ciprofloxacin HCl [Ciprofloxacin] Med 04/15/25 20:18 Discontinued 500 mg PO X1 ONE Vital Signs Vital signs: Vital Signs Temperature 98.7 F 04/15/25 18:25 Pulse Rate 91 04/15/25 18:25 Respiratory Rate 18 04/15/25 18:25 Blood Pressure 124/71 04/15/25 18:25 Pulse Oximetry (%) 95 04/15/25 18:25 Oxygen Delivery Method Room Air 04/15/25 18:25 Weakness MDM Narrative MDM Narrative:: 64-year-old female, with a past medical history of insulin-dependent diabetes, dementia on memantine, and chronic pain, presents to the ED via EMS with a complaint of generalized weakness and diarrhea for the past 5 days. She denies any fever or chills, cough or shortness of breath, nausea or vomiting, abdominal pain or flank pain. She denies any dysuria or urinary frequency. She denies any melena. 64-year-old female, lying on gurney, no respiratory distress noted. Vital signs: Blood pressure 124/71, pulse 91, respirations 18 and nonlabored, temperature 98.7, O2 sat 95% on room air. Lungs are clear, cardiovascular regular rate and rhythm without murmurs. Bowel sounds are present x 4, abdomen is soft and nontender. No lower extremity pitting edema noted. Moves all extremities well. Labs reveal negative COVID and negative influenza A/B. CBC reveals a normal white count of 9.6, minimally low H&H of 11.0/31.3 with normal platelets. Coags are normal. Chemistry panel reveals normal electrolytes, normal BUN and creatinine, glucose is elevated at 217, phosphorus and magnesium are normal, LFTs are normal. Troponin is less than 0.020. BNP is less than 20, serum acetone is negative. Urinalysis reveals turbid light yellow urine with a specific gravity of 1.011 with trace protein, negative nitrites, positive leukocyte esterase, 11 RBCs, 156 WBCs, rare bacteria and 8 squamous epithelial cells. Chest x-ray ordered and pending results. EKG reveals sinus rhythm at a rate of 93 with no T wave or ST changes. Patient data External records reviewed:: [facility] previous records Clinical information provided by:: patient Social determinants that could affect healthcare access:: other (specify) (Dementia on Memantine.) Patient has the following chronic illnesses:: Insulin-dependent diabetes, chronic pain, gravely disabled/unable to care for self, dementia on memantine. How is presenting disease/condition affected by chronic disease/condition?: uneffected by Evaluation data The following diagnostics were reviewed and interpreted by me:: lab results, radiology exam(s) and EKG tracing(s) Lab and/or radiology exams considered but not ordered:: N/A Interpretation Summary: Labs reveal negative COVID and negative influenza A/B. CBC reveals a normal white count of 9.6, minimally low H&H of 11.0/31.3 with normal platelets. Coags are normal. Chemistry panel reveals normal electrolytes, normal BUN and creatinine, glucose is elevated at 217, phosphorus and magnesium are normal, LFTs are normal. Troponin is less than 0.020. BNP is less than 20, serum acetone is negative. Urinalysis reveals turbid light yellow urine with a specific gravity of 1.011 with trace protein, negative nitrites, positive leukocyte esterase, 11 RBCs, 156 WBCs, rare bacteria and 8 squamous epithelial cells. Chest x-ray ordered and pending results. EKG reveals sinus rhythm at a rate of 93 with no T wave or ST changes. Medications / Prescriptions Medications or Prescriptions considered but not ordered:: Rocephin, however patient is allergic to cillins. Medication administrations:: Medication Administration History Discontinued Medications Ciprofloxacin (Ciprofloxacin Hcl 250 Mg Tablet) 500 mg PO X1 ONE Stop: 04/15/25 20:19 Last Admin: 04/15/25 20:35 Dose: 500 mg Documented By: BD Cipro 500 mg p.o. Consultations Consultation(s) initiated? (list below): Yes Consultation #1 (Physician, Specialty, Details): Discussed case with Dr. Gonzalez. Diagnosis Weakness Differential Diagnosis: sepsis, dehydration and other (COVID, influenza A/B, pneumonia, UTI, pyelonephritis) Most likely diagnosis given after review of the tests above:: UTI Admission Indicated Admission indicated?: not indicated Explain why admission is indicated or not indicated:: Patient is stable for discharge Admission Request Was there a request for admission?: No Disposition Plan Disposition Plan: Discharge Discharge Attestation Discharge Attestation: The patient and all family members were given an opportunity to ask questions and understood the discharge instructions. Discharge instructions specifically effects, indications for sooner follow up or return to the emergency department, and the expected course of current diagnosis. Patient condition: Stable Discharge Plan Plan Patient Disposition: HOME (Self Care) Discharge Disposition comment: Stable Prescriptions/Referrals Prescriptions/Med Rec: New ciprofloxacin HCl [Cipro] 500 mg tablet 500 mg PO BID 7 Days Qty: 14 0RF Rx Instructions: Do not take trazodone while taking this medication No Action furosemide 40 mg tablet 40 mg PO DAILY meloxicam 7.5 mg tablet 7.5 mg PO QDAY PRN (Reason: pain) Qty: 10 0RF tramadol 50 mg tablet 50 mg PO TID PRN (Reason: pain) Qty: 10 0RF hydrocodone-acetaminophen 5-325 mg tablet 1 tab PO Q6HR PRN (Reason: Pain (Scale Score 4-6)) pantoprazole 40 mg tablet,delayed release (DR/EC) 40 mg PO DAILY Patient Comments: TAKE ONE TABLET BY MOUTH EVERY DAY insulin glargine [Lantus U-100 Insulin] 100 unit/mL Solution 42 unit subcut HS Qty: 10 1RF Humulin R Regular U-100 Insuln 100 unit/mL Solution 14 unit subcut TIDWM Qty: 10 1RF trazodone 100 mg tablet 100 mg PO QDAY Qty: 30 0RF (DME) blood-glucose meter [Accu-Chek Guide Glucose Meter] Misc See Rx Instructions .Route Qty: 1 0RF Rx Instructions: As directed (DME) Accu-Chek Guide test strips Strip See Rx Instructions .Route Qty: 100 0RF Rx Instructions: As directed (DME) lancing device with lancets [Accu-Chek Multiclix Lancet] Kit See Rx Instructions .Route Qty: 1 0RF Rx Instructions: As directed Januvia 100 mg tablet 100 mg PO QDAY Qty: 30 0RF memantine 5 mg tablet 5 mg PO BID Qty: 60 0RF ciprofloxacin HCl 500 mg tablet 500 mg PO BID Qty: 14 0RF Referrals: Duglas Dunaway MD [Primary Care Provider] - In 1 week Problem List Clinical Impression: Urinary tract infection Patient/Caregiver Discharge Instructions Education Materials: Urinary Tract Infections in Women, ED CYSTITIS Female Adult Additional Instructions: Take the antibiotics as prescribed and complete the course even though you may be feeling better. Follow-up with your primary care physician in 24 to 48 hours. Return to the ED for any new or worsening symptoms. Print Language: Lithuanian Stand Alone Forms: Gertrudis Award Info., Patient Portal Info Letter PA/DEYANIRA Supervising Physician GER[place]/DEYANIRA Supervising Physician: Dr. Gonzalez
--- NOTE | 2025-04-15 19:04 | XR_ITS ---
Examination: AP chest single view TECHNIQUE: AP upright portable chest single view Date and time: April 15, 2025, 1951 hours Comparison July 22, 2022 MEDICATIONS: Diarrhea and generalized weakness beginning 5 days ago FINDINGS: Minimal prominence of ventricle No pneumonia or pulmonary edema. The osseous structures are intact IMPRESSION: No pneumonia or pulmonary edema
--- NOTE | 2025-04-15 19:04 | EKG_ITS ---
[facility] Test Date: 2025-04-15 Pat Name: LUIS SAINZ Department: Room: - Gender: Female Demo Specialist: : [id number] Requested By: Natalie Jaimes Order Number: [id number] Reading MD: Natalie Jaimes Measurements Intervals [place] Rate: 93 P: 59 OK: 192 QRS: 21 QRSD: 110 T: 84 QT: 362 QTc: 452 Interpretive Statements SINUS RHYTHM Compared to ECG 10/02/2022 14:56:42 Indeterminate axis no longer present Myocardial infarct finding no longer present /store/S0/[id number]/ecg/[id number].pdf
[2025-04-15 19:39] LABS: Basophils % (Auto) 0 % (0-2.5); Eosinophils # (Auto) 0.3 Thou/mm3 (0.0-0.5); Eosinophils % (Auto) 4 % (0-10); Hematocrit 31.3 % (36.0-46.0); Immature Granulocytes % (Auto) 0 % (0-0); Immature Granulocytes Auto 0.02 Thou/mm3 (0.00-0.00); Lymphocytes # (Auto) 2.2 Thou/mm3 (1.0-4.8); Lymphocytes % (Auto) 23 % (10-50); Mean Corpuscular HGB Conc 35.1 g/dl (31.0-37.0); Mean Corpuscular Hemoglobin 30.6 pg (25.0-35.0); Mean Corpuscular Volume 87 fL (80-100); Monocytes # (Auto) 0.5 Thou/mm3 (0.0-0.8); Monocytes % (Auto) 5 % (0-12); Neutrophils # (Auto) 6.5 Thou/mm3 (1.8-7.7); Neutrophils % (Auto) 68 % (37-80); Nucleated Red Blood Cell % 0 /100 WBC (0); Platelet Count 182 Thou/mm3 (140-440); RDW Standard Deviation 38.2 fL (36.4-46.3); Red Blood Count 3.59 Miln/mm3 (4.00-5.20); White Blood Count 9.6 Thou/mm3 (3.6-11.0)
[2025-04-15 19:58] LABS: Collection Type, Urine Clean Catch
[2025-04-15 20:00] LABS: B-Type Natriuretic Peptide < 20 pg/mL (0-100)
[2025-04-15 20:01] LABS: Partial Thromboplastin Time 26.5 Seconds (22.0-36.0); Prothrombin Time 11.1 Seconds (9.0-12.2)
[2025-04-15 20:06] LABS: Alanine Aminotransferase 17 U/L (10-49); Albumin, Serum 3.8 gm/dL (3.4-4.8); Albumin/Globulin Ratio 1.3 (1.2-2.2); Alkaline Phosphatase 66 U/L (46-116); Anion Gap 7 (7-16); Aspartate Amino Transferase 19 U/L (0-34); BUN/Creatinine Ratio 14 Ratio (12-20); Bilirubin,Total < 0.2 mg/dL (0.3-1.2); Blood Urea Nitrogen 17 mg/dL (9-23); Calcium 8.9 mg/dL (8.3-10.6); Calcium (Corrected) 9.1 mg/dL (8.5-10.1); Carbon Dioxide 26.7 mMol/L (20.0-31.0); Chloride 106 mMol/L (98-107); Creatinine (Component) 1.2 mg/dL (0.6-1.3); Globulin 2.9 gm/dL (2.3-3.5); Glucose 217 mg/dL (74-106); Magnesium 1.8 mg/dL (1.6-2.6); Osmolality,Calculated 287 (275-295); Phosphorous 2.8 mg/dL (2.4-5.1); Potassium 4.2 mMol/L (3.4-5.1); Sodium 140 mMol/L (136-145); Total Protein 6.7 gm/dL (5.7-8.2); Troponin I < 0.020 ng/mL (0.0-0.045); eGFR 51 See Note
[2025-04-15 20:07] LABS: Bacteria,Urine Rare; Bilirubin,Urine Negative (Negative); Blood,Urine Negative (Negative); Clarity,Urine Turbid (Clear/Hazy); Color,Urine Lt-Yellow (Lt Yel-Yel); Glucose, Urine Negative (Negative); Hyaline Casts,Urine < 1 /hpf (0-1); Ketones,Urine Negative (Negative); Leukocyte Esterase,Urine Positive (Negative); Nitrite,Urine Negative (Negative); Protein,Urine Trace (Neg - Trace); RBC,Urine 11 /hpf (0-3); Specific Gravity,Urine 1.011 (1.001-1.035); Squamous Epithelial Cell,Urine 8 /hpf (0-5); Urobilinogen,Urine Negative mg/dL (0.0-1.0); WBC,Urine 156 /hpf (0-5)
[2025-04-15] MEDS: CIPROFLOXACIN HCL 250 MG TABLET 500 MG PO (20:35)
== END 2025-04-15 20:58 | disposition home or self-care (01) ==
PROVIDERS: Physician Assistant; Emergency Provider Emergency Medicine; PCP Family Medicine
DX: N39.0 Urinary tract infection, site not specified (principal); E11.9 Type 2 diabetes mellitus without complications; F03.90 Unspecified dementia, unspecified severity, without behavioral disturbance, psychotic disturbance, mood disturbance, and anxiety
CPT/HCPCS: 36415; 71045; 80053; 81001; 82010; 83735; 83880; 84100; 84484; 85025; 85610; 85730; 87086; 87400; 87811; 93005; 99283; A9270

== ENCOUNTER 2025-05-15 13:01 | Outpatient (AMB) | payer OTHER, MEDICAID, SELFPAY ==
[2025-05-15 13:16] VITALS: BP 151/77; PULSE 92; RESP 18; TEMP 36.7; O2SAT 92
--- NOTE | 2025-05-15 13:16 | ORTHONT_ITS ---
Vital signs 05/15/25 13:16 BP 151/77 H Blood Pressure Source Automatic Cuff Blood Pressure Location Right Upper Arm Position Sitting Respiration 18 Pulse 92 Pulse Source Monitor Temp 98.1 F Temp Source Temporal Artery Scan Pulse Oximetry (%) 92 L Oxygen Delivery Method Room Air Med/Allergies Allergies & Medications Allergies Penicillins Allergy (Verified 05/15/25 13:17) Medication Reconciliation hydrocodone 5 mg-acetaminophen 325 mg tablet 1 tab PO Q6HR PRN Pain (Scale Score 4-6) 10/05/22 [History Confirmed 05/15/25] pantoprazole 40 mg tablet,delayed release 40 mg PO DAILY 10/05/22 [History Confirmed 05/15/25] furosemide 40 mg tablet 40 mg PO DAILY diuretic 01/03/24 [History Confirmed 05/15/25] blood sugar diagnostic (Accu-Chek Guide test strips) #100 ea 02/18/24 [Rx Confirmed 05/15/25] blood-glucose meter (Accu-Chek Guide Glucose Meter) #1 ea 02/18/24 [Rx Confirmed 05/15/25] insulin glargine 100 unit/mL subcutaneous solution (Lantus U-100 Insulin) 42 unit (0.42 mL) subcut HS #10 mL 02/18/24 [Rx Confirmed 05/15/25] insulin regular human 100 unit/mL injection solution (Humulin R Regular U-100 Insulin) 14 unit (0.14 mL) subcut TIDWM #10 mL 02/18/24 [Rx Confirmed 05/15/25] lancing device with lancets kit (Accu-Chek Multiclix Lancet kit) #1 ea 02/18/24 [Rx Confirmed 05/15/25] memantine 5 mg tablet 5 mg PO BID #60 tabs 02/18/24 [Rx Confirmed 05/15/25] sitagliptin phosphate 100 mg tablet (Januvia) 100 mg PO QDAY #30 tabs 02/18/24 [Rx Confirmed 05/15/25] trazodone 100 mg tablet 100 mg PO QDAY #30 tabs 02/18/24 [Rx Confirmed 05/15/25] ciprofloxacin HCl 500 mg tablet 500 mg PO BID #14 tabs 11/12/24 [Rx Confirmed 05/15/25] meloxicam 7.5 mg tablet 7.5 mg PO QDAY PRN pain #10 tabs 03/19/25 [Rx Confirmed 05/15/25] tramadol 50 mg tablet 50 mg PO TID PRN pain #10 tabs 03/19/25 [Rx Confirmed 05/15/25] Exam Exam Patient is in no acute distress and is cooperative with the examination today. Breathing is nonlabored. Patient has a normal mood and affect. Bilateral extremities were evaluated and demonstrates sensation intact to light touch. Palpable pedal pulses are present. No significant edema is present. Bilateral hips were examined. The patient has no pain with log roll of the hips. Internal rotation to 30 degrees and external rotation to 30 degrees is painless. Negative FADIR. Right knee was examined today. The right knee is in reasonable alignment. Range of motion from 0-120 degrees. Knee is stable to varus and valgus as well as AP t ranslation with <5mm. Patient has a negative McMurrays. There is no pain with patellofemoral compression and no crepitus noted. The knee is nontender to palpation. Left knee was examined today. The left knee is in varus alignment. Range of motion from 0-115 degrees. Knee is stable to varus and valgus as well as AP translation with <5mm. Patient has a negative McMurrays. There is no pain with patellofemoral compression and no crepitus noted. The knee is tender to palpation medially. X-rays of the left knee that are nonweightbearing from 3 months ago demonstrate complete obliteration of the medial joint space Assessment and Plan Problem List (1) Arthritis of left knee: Status: Acute Plan: Patient is a 64-year-old female with left knee pain and left knee arthritis with chronic back pain as well who is severely limited because of her pain. She is in electric wheelchair and does ambulate around the house with no assistive device. We discussed different treatment options. We discussed injections to see if the pain improves and to help differentiate her knee from back pain. She does have hepz-fo-asft arthritis Recommend knee cortisone injection as patient would like to proceed with conservative treatment at this time. The risks and benefits of the procedure were reviewed with the patient and patient gave verbal consent to continue with the procedure. Procedure: performed by Dr. Aguirre Using sterile technique the left knee was thoroughly prepped with alcohol, and approximately 1 cc of Depo-Medrol 80mg/mL and 4 cc of 0.2% ropivacaine was injected without resistance into the medial tibial femoral joint space. The patient tolerated the procedure. Office Procedures GNS Level of Care Nursing/Assessment Patient Status: Initial/New Patient Nursing Assessment/Reassesment: Medication Reconciliation, Update PMH in EMR and Vital Signs Coordination of Care: Complex Care and Chronic Disease 1-5, Education Complex Pt/Fam, Consent,records obtained, informed consent, Lab and Imaging orders, Results/Orders obtained and Staff clarify orders New Patient Charge New Patient Point Assignment: 1109 New Patient Point Charge: HAND WOODWORKING [employer]ANDER Level 3 ([id number]) Surgical Proc/IM SQ injection Major Surgical Procedure: Yes (KNEE INJECTION) Medication Given Medication Given Medication Given: Yes Documented Dose Given: 1 Route: Infiitration Medication Given Medication Given Medication Given: Yes Documented Dose Given: 4 Route: Infiitration Office Meds methylprednisolone acetate 80 mg/mL suspension for injection Performing Provider: Luciano Aguirre MD Performing Location: [facility] Administered by: Luciano Aguirre MD on 05/15/25 13:48 Dose Route Admin Location Dispensed Lot Number Expiration Date [facility] Almond Sorter 80 mg intra-articular KNEE 1 mL [id number] 11/17/26 3034-2058-19 PH [id number] ropivacaine (PF) 2 mg/mL (0.2 %) injection solution Performing Provider: Luciano Aguirre MD Performing Location: [facility] Administered by: Luciano Aguirre MD on 05/15/25 13:48 Dose Route Admin Location Dispensed Lot Number Expiration Date [facility] Almond Sorter 20 mL Infiltration KNEE 20 mL [id number] 08/17/26 [id number] [facility] Intake Visit Data Collection New Patient or Established: Established Patient (seen at [facility] within 3 years) Reason for Visit:: KNEE PAIN Seen by Clinical Staff ONLY (RN/MA): No Hydrometer Tester Required: No PCP or OBGYN visit in last 3 months: Yes Hx Now: No Do You Feel Safe at Home: Yes Authorities Contacted: N/A Questionairres Past Medical History Past Medical History Have you ever been diagnosed with any of the following: Neurological Problems Cerebrovascular Accident (CVA): Yes Alzheimer's Disease: Yes Cardiology Problems Myocardial Infarction: No Cardiac Arrhythmia: No Atrial Fibrillation: No Angina: No Coronary Artery Disease: No Atherosclerotic Heart Disease: No Hypercholesterolemia: Yes Congestive Heart Failure: No Hypertension: Yes Respiratory Problems Chronic Obstructive Pulmonary Disease (COPD): No Stomache/Intestinal Problems Gall Bladder Disease: Yes Genital/Urinary Problems Renal Disease: No Endocrine Problems Diabetes Mellitus Type 1: No Diabetes Mellitus Type 2: Yes Systemic Lupus Erythematosus: Yes Subjective Visit Visit for: new patient and knee Immunization / Flu Flu Vaccine in the Last 12 Months: Yes Flu Vaccine Exclusion Criteria: Already Received History of Present Illness Chief complaint: KNEE PAIN Chica is a 64-year-old female with left knee pain and back pain. She is on Arena chronically. She reports the left knee pain is affecting her quality life and happiness. She has not tried any injections. She has tried formal physical therapy and reports the pain worsened because of it Personal History Occupation: DISABLED Red flag PMH: smoker BMI Counceling provided: Yes Pain Pain level (0-10): 9 Pain location: outside (lateral) Pain quality: sharp, dull, aching, burning and shocking Pain timing: increases with activity Associated signs & symptoms: numbness, weakness and stiffness Ambulatory data Ambulatory device: other (specify) (WHEELCHAIR) Walking distance (minutes): 5 Treatments Improvement with previous injections: No Number of Physical Therapy sessions: 1 Improvement with PT: No Improvement with NSAIDS: no Review of Systems Review of Systems: All systems negative unless otherwise noted in HPI.
--- NOTE | 2025-05-15 13:22 | XR_ITS ---
Examination: Bilateral knees 2 views Left knee PA lateral axial 3 views TECHNIQUE: Bilateral AP knees single view Left knee standing PA flexion, standing lateral, axial 3 views total 4 views Date and time: May 15, 2025 1336 hours INDICATIONS: Left knee pain months FINDINGS: Moderate osteopenia. Moderate narrowing medial joint space right knee Moderate to advanced narrowing medial joint space left knee Significant osteoarthritis patellofemoral and lateral joint spaces left knee No fractures IMPRESSION: Moderate to advanced narrowing medial joint space left knee Significant osteoarthritis patellofemoral and lateral joint spaces left knee
== END 2025-05-15 13:32 | disposition home or self-care (01) ==
PROVIDERS: PCP Family Medicine; Referring Provider Family Medicine; Supervising Provider Orthopaedic Surgery Adult Reconstructive Orthopaedic Surgery; Visit Provider Orthopaedic Surgery Adult Reconstructive Orthopaedic Surgery
DX: M17.12 Unilateral primary osteoarthritis, left knee (principal); M25.562 Pain in left knee; I10 Essential (primary) hypertension; Z86.73 Personal history of transient ischemic attack (TIA), and cerebral infarction without residual deficits; G30.9 Alzheimer's disease, unspecified; F02.80 Dementia in other diseases classified elsewhere, unspecified severity, without behavioral disturbance, psychotic disturbance, mood disturbance, and anxiety; E78.00 Pure hypercholesterolemia, unspecified; E11.9 Type 2 diabetes mellitus without complications; M32.9 Systemic lupus erythematosus, unspecified
CPT/HCPCS: 20610; 73564; 99203; J1010; J2795; G0463

== ENCOUNTER 2025-05-31 14:11 | Outpatient (AMB) | payer OTHER, MEDICAID, SELFPAY ==
--- NOTE | 2025-05-31 14:27 | PD.ORTHCLVIS ---
Vital signs 05/31/25 14:30 Height 1.63 m Height Method Stated Weight 81.647 kg Weight Measurement Method Estimated by Patient BMI 30.7 BP 106/58 L Blood Pressure Source Automatic Cuff Blood Pressure Location Left Upper Arm Position Sitting Respiration 19 Pulse 117 H Pulse Source Monitor Temp 98.2 F Temp Source Temporal Artery Scan Pulse Oximetry (%) 92 L Oxygen Delivery Method Room Air Med/Allergies Allergies & Medications Allergies Penicillins Allergy (Verified 05/31/25 14:31) Medication Reconciliation hydrocodone 5 mg-acetaminophen 325 mg tablet 1 tab PO Q6HR PRN Pain (Scale Score 4-6) 10/05/22 [History Confirmed 05/31/25] pantoprazole 40 mg tablet,delayed release 40 mg PO DAILY 10/05/22 [History Confirmed 05/31/25] furosemide 40 mg tablet 40 mg PO DAILY diuretic 01/03/24 [History Confirmed 05/31/25] blood sugar diagnostic (Accu-Chek Guide test strips) #100 ea 02/18/24 [Rx Confirmed 05/31/25] blood-glucose meter (Accu-Chek Guide Glucose Meter) #1 ea 02/18/24 [Rx Confirmed 05/31/25] insulin glargine 100 unit/mL subcutaneous solution (Lantus U-100 Insulin) 42 unit (0.42 mL) subcut HS #10 mL 02/18/24 [Rx Confirmed 05/31/25] insulin regular human 100 unit/mL injection solution (Humulin R Regular U-100 Insulin) 14 unit (0.14 mL) subcut TIDWM #10 mL 02/18/24 [Rx Confirmed 05/31/25] lancing device with lancets kit (Accu-Chek Multiclix Lancet kit) #1 ea 02/18/24 [Rx Confirmed 05/31/25] memantine 5 mg tablet 5 mg PO BID #60 tabs 02/18/24 [Rx Confirmed 05/31/25] sitagliptin phosphate 100 mg tablet (Januvia) 100 mg PO QDAY #30 tabs 02/18/24 [Rx Confirmed 05/31/25] trazodone 100 mg tablet 100 mg PO QDAY #30 tabs 02/18/24 [Rx Confirmed 05/31/25] ciprofloxacin HCl 500 mg tablet 500 mg PO BID #14 tabs 11/12/24 [Rx Confirmed 05/31/25] meloxicam 7.5 mg tablet 7.5 mg PO QDAY PRN pain #10 tabs 03/19/25 [Rx Confirmed 05/31/25] tramadol 50 mg tablet 50 mg PO TID PRN pain #10 tabs 03/19/25 [Rx Confirmed 05/31/25] Exam Exam Patient is in no acute distress and is cooperative with the examination today. Breathing is nonlabored. Patient has a normal mood and affect. Bilateral extremities were evaluated and demonstrates sensation intact to light touch. Palpable pedal pulses are present. No significant edema is present. Bilateral hips were examined. The patient has no pain with log roll of the hips. Internal rotation to 30 degrees and external rotation to 30 degrees is painless. Negative FADIR. Right knee was examined today. The right knee is in reasonable alignment. Range of motion from 0-120 degrees. Knee is stable to varus and valgus as well as AP translation with <5mm. Patient has a negative McMurrays. There is no pain with patellofemoral compression and no crepitus noted. The knee is nontender to palpation. Left knee was examined today. The left knee is in varus alignment. Range of motion from 0-115 degrees. Knee is stable to varus and valgus as well as AP translation with <5mm. Patient has a negative McMurrays. There is no pain with patellofemoral compression and no crepitus noted. The knee is tender to palpation medially. X-rays of the left knee that are weightbearing f demonstrates moderate arthritis of the left knee Assessment and Plan Problem List (1) Arthritis of left knee: Status: Acute Plan: Patient is a 64-year-old female with left knee pain and left knee arthritis with chronic back pain as well who is severely limited because of her pain. She is in electric wheelchair and does ambulate around the house with no assistive device. We discussed different treatment options. We discussed injections to see if the pain improves and to help differentiate her knee from back pain. She does have [id number] arthritis The last knee injection provided almost no relief. I discussed with her that her description of symptoms appears to be radicular and I worry how much of the pain is in her back. She will see her primary care provider for referral to a spine surgeon Office Procedures S Level of Care Nursing/Assessment Patient Status: Established Patient Nursing Assessment/Reassesment: Medication Reconciliation, Update PMH in EMR and Vital Signs Coordination of Care: Complex Care and Chronic Disease 1-5, Education Complex Pt/Fam, Consent,records obtained, informed consent, Results/Orders obtained and Staff clarify orders Established Patient Charge Established Patient Point Assignment: 95 Established Patient Point Charge: EP Level 3 (80-115) MA Intake Visit Data Collection New Patient or Established: Established Patient (seen at [facility] within 3 years) Reason for Visit:: KNEE PAIN/LABS RESULTS Seen by Clinical Staff ONLY (RN/MA): No Product/Device Technologist Required: No PCP or OBGYN visit in last 3 months: Yes Hx Now: No Do You Feel Safe at Home: Yes Authorities Contacted: N/A Questionairres Past Medical History Past Medical History Have you ever been diagnosed with any of the following: Neurological Problems Cerebrovascular Accident (CVA): Yes Alzheimer's Disease: Yes Cardiology Problems Myocardial Infarction: No Cardiac Arrhythmia: No Atrial Fibrillation: No Angina: No Coronary Artery Disease: No Atherosclerotic Heart Disease: No Hypercholesterolemia: Yes Congestive Heart Failure: No Hypertension: Yes Respiratory Problems Chronic Obstructive Pulmonary Disease (COPD): No Stomache/Intestinal Problems Gall Bladder Disease: Yes Genital/Urinary Problems Renal Disease: No Endocrine Problems Diabetes Mellitus Type 1: No Diabetes Mellitus Type 2: Yes Systemic Lupus Erythematosus: Yes Subjective Visit Visit for: follow up visit and knee Immunization / Flu Flu Vaccine in the Last 12 Months: Yes Flu Vaccine Exclusion Criteria: Already Received History of Present Illness Chief complaint: KNEE PAIN Chica is a 64-year-old female with left knee pain and back pain. She is on [place] chronically. She reports the left knee pain is affecting her quality life and happiness. She has not tried any injections. She has tried formal physical therapy and reports the pain worsened because of it. She reports the entire left leg hurts and there is significant numbness and tingling Personal History Occupation: DISABLED Red flag PMH: smoker BMI Counceling provided: Yes Pain Pain level (0-10): 6 Pain location: outside (lateral) Pain quality: dull and aching Pain timing: increases with activity Associated signs & symptoms: numbness, weakness and stiffness Ambulatory data Ambulatory device: other (specify) (WHEELCHAIR) Walking distance (minutes): 5 Treatments Improvement with previous injections: No Number of Physical Therapy sessions: 1 Improvement with PT: No Improvement with NSAIDS: no Review of Systems Review of Systems: All systems negative unless otherwise noted in HPI.
[2025-05-31 14:30] VITALS: BP 106/58; PULSE 117; RESP 19; TEMP 36.8; O2SAT 92; BMI 30.7
== END 2025-05-31 14:32 | disposition home or self-care (01) ==
LOC: HODSRG 14:11
PROVIDERS: PCP Family Medicine; Referring Provider Family Medicine; Supervising Provider Orthopaedic Surgery Adult Reconstructive Orthopaedic Surgery; Visit Provider Orthopaedic Surgery Adult Reconstructive Orthopaedic Surgery
DX: M17.12 Unilateral primary osteoarthritis, left knee (principal); M25.562 Pain in left knee; M54.89 Other dorsalgia; R20.0 Anesthesia of skin; R20.2 Paresthesia of skin; Z99.3 Dependence on wheelchair; I10 Essential (primary) hypertension; E78.00 Pure hypercholesterolemia, unspecified; E11.9 Type 2 diabetes mellitus without complications; M32.9 Systemic lupus erythematosus, unspecified; Z86.73 Personal history of transient ischemic attack (TIA), and cerebral infarction without residual deficits; G30.9 Alzheimer's disease, unspecified; F02.80 Dementia in other diseases classified elsewhere, unspecified severity, without behavioral disturbance, psychotic disturbance, mood disturbance, and anxiety
CPT/HCPCS: 99213; G0463

== ENCOUNTER → 2025-06-06 | Outpatient (CLI) | payer OTHER, MEDICAID, SELFPAY ==
[2025-06-06 12:06] LABS: Glucose Estimated Average 263 mg/dL (80-131); Hemoglobin A1C 10.8 % Hgb (4.8-6.0)
[2025-06-06 12:11] LABS: Creatinine MALB Rnd Ur 77 mg/dL (30-125); Microalbumin Creat Ratio 381 mg/gCrea (<30); Microalbumin, Random Urine 293 mg/L (0-300)
[2025-06-06 12:18] LABS: Anion Gap 11 (7-16); BUN/Creatinine Ratio 18 Ratio (12-20); Blood Urea Nitrogen 22 mg/dL (9-23); Calcium 9.7 mg/dL (8.3-10.6); Carbon Dioxide 28.1 mMol/L (20.0-31.0); Chloride 100 mMol/L (98-107); Creatinine (Component) 1.2 mg/dL (0.6-1.3); Glucose 199 mg/dL (74-106); Osmolality,Calculated 286 (275-295); Potassium 4.2 mMol/L (3.4-5.1); Sodium 139 mMol/L (136-145); eGFR 51 See Note
== END | disposition home or self-care (01) ==
LOC: COPL 10:46
PROVIDERS: PCP Family Medicine; Referring Provider Family Medicine; Visit Provider Family Medicine
DX: E11.65 Type 2 diabetes mellitus with hyperglycemia (principal); A09 Infectious gastroenteritis and colitis, unspecified
CPT/HCPCS: 36415; 80048; 82043; 82570; 83036

== ENCOUNTER → 2025-06-11 | Outpatient (CLI) | payer OTHER, MEDICAID, SELFPAY ==
[2025-06-11 16:33] LABS: Campylobacter PCR Negative (Negative); Salmonella Species PCR Negative (Negative); Shiga Toxin PCR Negative (Negative); Shigella Species PCR Negative (Negative)
== END | disposition home or self-care (01) ==
LOC: SLDO 12:52
PROVIDERS: PCP Family Medicine; Referring Provider Family Medicine; Visit Provider Family Medicine
DX: A09 Infectious gastroenteritis and colitis, unspecified (principal); E11.65 Type 2 diabetes mellitus with hyperglycemia
CPT/HCPCS: 87015; 87045; 87046; 87493; 87505; 87899

== ENCOUNTER → 2025-06-14 | Outpatient (CLI) | payer OTHER, MEDICAID, SELFPAY ==
[2025-06-14 17:04] LABS: Clostridium Difficile PCR Negative (Negative)
== END | disposition home or self-care (01) ==
LOC: SLDO 11:47
PROVIDERS: PCP Family Medicine; Referring Provider Family Medicine; Visit Provider Family Medicine
DX: A09 Infectious gastroenteritis and colitis, unspecified (principal); E11.65 Type 2 diabetes mellitus with hyperglycemia
CPT/HCPCS: 87493

== ENCOUNTER 2025-06-25 12:35 | Emergency (ER) | payer OTHER, MEDICAID, SELFPAY ==
[2025-06-25] VITALS (8 sets, daily range): BP systolic 116–133; BP diastolic 72–85; PULSE 77–124; RESP 16–88; TEMP 36.9–38.4; O2SAT 90–100; BMI 41.2
--- NOTE | 2025-06-25 12:38 | EKG_ITS ---
[facility] Test Date: 2025-06-25 Pat Name: LUIS SAINZ Department: Room: - Gender: Female Oncology Radiation Physician: : [id number] Requested By: Yong Tsang Order Number: [id number] Reading MD: Yong Tsang Measurements Intervals [place] Rate: 120 P: -89 KS: 235 QRS: 82 QRSD: 101 T: 62 QT: 330 QTc: 468 Interpretive Statements ECTOPIC ATRIAL TACHYCARDIA WITH FIRST DEGREE AV BLOCK Compared to ECG 04/15/2025 19:18:41 First degree AV block now present Sinus rhythm no longer present /store/S0/[id number].pdf
--- NOTE | 2025-06-25 12:39 | EDNOTE_ITS ---
ED General RME/HPI General Chief complaint: Nausea/Vomiting/Diarrhea Stated complaint: nausea, diarrhea Time Seen by Provider: 06/25/25 12:37 Arrival date/time: 06/25/25 12:35 CC: Diarrhea and nausea HPI ongoing for the past 3 days. The patient is mildly confused and an exceedingly poor historian. EMS report tachycardia with a stable blood pressure. Patient thinks that she got had antibiotics in the last 3 months for a infection . Related Data Home Medications ?Medication ?Instructions ?Recorded ?Confirmed hydrocodone 5 mg-acetaminophen 325 1 tab PO Q6HR PRN P ain (Scale 10/05/22 05/31/25 mg tablet Score 4-6) pantoprazole 40 mg tablet,delayed 40 mg PO DAILY 10/0505/31/25 release furosemide 40 mg tablet 40 mg PO DAILY diuretic 12/1605/31/25 Previous Rx's ?Medication ?Instructions ?Recorded blood sugar diagnostic (Accu-Chek #100 ea 02/18/24 Guide test strips) blood-glucose meter (Accu-Chek #1 ea 02/18/24 Guide Glucose Meter) insulin glargine 100 unit/mL 42 unit (0.42 mL) subcut HS #10 mL 02/18/24 subcutaneous solution (Lantus U-100 Insulin) insulin regular human 100 unit/mL 14 unit (0.14 mL) spencer bcut TIDWM #10 02/18/24 injection solution (Humulin R mL Regular U-100 Insulin) lancing device with lancets kit #1 ea 02/18/24 (Accu-Chek Multiclix Lancet kit) memantine 5 mg tablet 5 mg PO BID #60 tabs 4 sitagliptin phosphate 100 mg 100 mg PO QDAY #30 tabs 0 02/18/24 tablet (Januvia) trazodone 100 mg tablet 100 mg PO QDAY #30 tabs 0501/08 ciprofloxacin HCl 500 mg tablet 500 mg PO BID #14 tabs 11/12/24 meloxicam 7.5 mg tablet 7.5 mg PO QDAY PRN pain #10 tabs 03/19/25 tramadol 50 mg tablet 50 mg PO TID PRN pain #10 ta bs 03/19/25 doxycycline hyclate 100 mg capsule 100 mg PO BID #14 c aps 06/25/25 Allergies Allergy/AdvReac Type Severity Reaction Status Date / Time Penicillins Allergy Verified 05/31/25 14:31 Review of Systems Review of Systems Narrative Review of Systems: GEN: No fever, no chills, no weight loss EYES: No discharge, no visual changes, no pain HEENT: No ear pain, no congestion, no sore throat PULM: No shortness of breath, no cough, no congestion CV: No chest pain, no dyspnea on exertion, no palpitations GI: + nausea, no vomiting, + diarrhea, no pain, no constipation : No frequency, no urgency, no dysuria MUSC/SKEL: No joint pain, no back pain SKIN: No rash PSYCH: No hallucinations, no depression HEME/LYMPH: No easy bleeding or bruising tendencies NEURO: No weakness, no headache Past Medical History Past Medical History NEUROLOGIC: Positive Cerebrovascular Accident and Alzheimer's Disease CARDIAC: Positive Hypercholesterolemia and Hypertension; Negative Cardiac Disorders, Myocardial Infarction, Cardiac Arrhythmia, Atrial Fibrillation, Angina, Coronary Artery Disease, Atherosclerotic Heart Disease or Congestive Heart Failure RESPIRATORY: Negative Chronic Obstructive Pulmonary Disease (COPD) GASTROINTESTINAL: Positive Gastrointestinal Disorders and Gall Bladder Disease GENITOURINARY: Negative Renal Disease ENDOCRINE: Positive Diabetes Mellitus Type 2 and Systemic Lupus Erythematosus; Negative Diabetes Mellitus Type 1 Social History SMOKING STATUS: Current some day smoker SUBSTANCE USE: does not use ED Exam Narrative Physical exam: [General: Obese appears not in any acute distress Head normocephalic HEENT: Within acceptable limits Neck is supple nontender Chest equal chest rise nontender to palpation Respiratory: Clear to auscultation no wheezes crackles or rubs CV: Rate rhythm is regular no murmurs rubs or clicks Abdomen is distended secondary to body habitus soft nontender no masses positive bowel sounds all 4 quadrants Back: No CVA tenderness no spinous process tenderness from cervical spine thoracic and lumbar spine Skin: Intact no petechiae rash induration ulceration or crepitus Extremities: Moving all extremity against resistance cap refill less than 2 seconds neurosensory intact Neuro: Awake alert oriented x3 Glascow coma 15 no focal deficits] Course Quality Measures none Orders Category Date Time Status Bedside COVID-19 Antigen Test NOW Care 06/25/25 14:45 Completed Bedside Influenza A&B Antigen Test NOW Care 06/25/25 14:45 Completed Lesson Instructor STAT Care 06/25/25 12:56 Completed Continuous Pulse Oximetry STAT Care 06/25/25 12:56 Completed EKG (ED ONLY) *Do not use* NOW Care 06/25/25 12:38 Completed In and Out Catheter X1 Care 06/25/25 12:56 Completed In and Out Catheter X1PRN Care 06/25/25 12:56 Completed Insert IV NOW Care 06/25/25 12:56 Completed NPO STAT Care 06/25/25 12:56 Completed Saline [Insert IV] NOW Care 06/25/25 12:38 Completed Strict Intake and Output Routine Care 06/25/25 12:[address] head/brain wo con Stat Exams 06/25/25 13:34 Completed CXR [XR chest 1V] Stat Exams 06/25/25 12:58 Completed EKG (ED Only) Stat Exams 06/25/25 12:38 Draft B-Type Natriuretic Peptide Stat Lab 06/25/25 12:40 Completed Blood Culture (Lab) Stat Lab 06/25/25 12:45 Received CBC Stat Lab 06/25/25 12:40 Completed Comprehensive Metabolic Panel Stat Lab 06/25/25 12:40 Completed Drug Screen,Urine Stat Lab 06/25/25 13:00 Completed LDH (Lactate Dehydrogenase) Stat Lab 06/25/25 12:40 Completed Lactate (Lactic Acid) Stat Lab 06/25/25 13:02 Completed Lipase Stat Lab 06/25/25 13:02 Completed Magnesium Stat Lab 06/25/25 12:40 Completed Partial Thromboplastin Time Stat Lab 06/25/25 12:40 Completed Phosphorous Stat Lab 06/25/25 13:02 Completed Procalcitonin Stat Lab 06/25/25 13:02 Completed Prothrombin Time with INR Stat Lab 06/25/25 12:40 Completed Troponin I Stat Lab 06/25/25 12:40 Completed Urinalysis, C/S if Indicated Stat Lab 06/25/25 13:00 Completed Acetaminophen Tab [Tylenol Tab] Med 06/25/25 12:58 Discontinued 650 mg PO X1 ONE Ringers Lactated 1000 ml [Lactated Ringers] 1,000 ml Med 06/25/25 12:56 Discontinued IV 999 mls/hr Ringers Lactated 1000 ml [Lactated Ringers] 1,000 ml Med 06/25/25 13:53 Discontinued IV 999 mls/hr Sodium Chloride 0.9% 1000 ml [Ns] 1,000 ml Med 06/25/25 12:39 Discontinued IV 999 mls/hr cefTRIAXone/D5w 1gm IV premix [Rocephin/D5w 1gm IV Med 06/25/25 13:34 Discontinued premix] 1 gm in 50 ml IV X1 Oxygen Delivery NOW RT 06/25/25 12:56 Completed Vital Signs Vital signs: Vital Signs Temperature 101.2 F H 06/25/25 12:55 Pulse Rate 120 H 06/25/25 12:55 Respiratory Rate 20 06/25/25 12:55 Blood Pressure 133/76 H 06/25/25 12:55 Pulse Oximetry (%) 90 L 06/25/25 12:55 Oxygen Delivery Method Room Air 06/25/25 12:55 Discharge Plan Plan Patient Disposition: HOME (Self Care) Patient condition on transfer: Stable Prescriptions/Referrals Prescriptions/Med Rec: New doxycycline hyclate 100 mg capsule 100 mg PO BID Qty: 14 0RF No Action furosemide 40 mg tablet 40 mg PO DAILY meloxicam 7.5 mg tablet 7.5 mg PO QDAY PRN (Reason: pain) Qty: 10 0RF tramadol 50 mg tablet 50 mg PO TID PRN (Reason: pain) Qty: 10 0RF hydrocodone-acetaminophen 5-325 mg tablet 1 tab PO Q6HR PRN (Reason: Pain (Scale Score 4-6)) pantoprazole 40 mg tablet,delayed release (DR/EC) 40 mg PO DAILY Patient Comments: TAKE ONE TABLET BY MOUTH EVERY DAY insulin glargine [Lantus U-100 Insulin] 100 unit/mL Solution 42 unit subcut HS Qty: 10 1RF Humulin R Regular U-100 Insuln 100 unit/mL Solution 14 unit subcut TIDWM Qty: 10 1RF trazodone 100 mg tablet 100 mg PO QDAY Qty: 30 0RF (DME) blood-glucose meter [Accu-Chek Guide Glucose Meter] Misc See Rx Instructions .Route Qty: 1 0RF Rx Instructions: As directed (DME) Accu-Chek Guide test strips Strip See Rx Instructions .Route Qty: 100 0RF Rx Instructions: As directed (DME) lancing device with lancets [Accu-Chek Multiclix Lancet] Kit See Rx Instructions .Route Qty: 1 0RF Rx Instructions: As directed Januvia 100 mg tablet 100 mg PO QDAY Qty: 30 0RF memantine 5 mg tablet 5 mg PO BID Qty: 60 0RF ciprofloxacin HCl 500 mg tablet 500 mg PO BID Qty: 14 0RF Referrals: Duglas Dunaway MD [Primary Care Provider, [facility]] - In 1 week Problem List Clinical Impression: Fever, Pneumonia, Obesity (BMI 35.0-39.9 without comorbidity), Hyperglycemia Patient/Caregiver Discharge Instructions Education Materials: What Is Pneumonia?, Preventing Pneumonia, Weight Manage Overcome Barriers, ED Diabetes with High Blood Sugar Additional Instructions: Take the medications as prescribed follow-up with your primary care doctor make sure you take ibuprofen or Tylenol for fever. If there is worsening of symptoms in spite of the medications return the emergency room immediately for further evaluation. Print Language: Austrian Stand Alone Forms: Automatic Agency Award Info., Work/School Release, Patient Portal Info Letter PA/ACCOUNTANT CLERK Supervising Physician PA/ACCOUNTANT CLERK Supervising Physician: Yong Ly ENP MDM Lab Interpretation Labs: interpreted by me Lab(s) interpretation(s): CBC shows a leukocytosis 17.7 H&H of 9.6 and 28.3 respectively which is lower than previous draws by approximately 1 g. No bandemia. Coags within acceptable limits Sodium 135 glucose at 332 no other electrolyte imbalances magnesium at 1.5. No transaminitis or T. bili elevation. No renal impairment. BNP is less than 20 Troponin at 0.032. Lipase is 21 Procalcitonin 0.21. Lactic 1.9 Imaging Provider imaging interpretation(s): Chest x-ray as interpreted by me and read by radiology shows an early pneumonia. CT of the head is negative. Radiology reports / interpretation(s): This time not totally convinced that the pneumonia is profound enough to cause a temperature of 102.5 the patient has mild leukocytosis but no lactic or procalcitonin. Will discharge the patient home on antibiotics to follow-up with her primary care doctor. Medication Administration(s) Medication Administration History Discontinued Medications Acetaminophen (Acetaminophen 325 Mg Tablet) 650 mg PO X1 ONE Stop: 06/25/25 12:59 Last Admin: 06/25/25 13:19 Dose: 650 mg Documented By: DB Sodium Chloride (Ns) 1,000 mls @ 999 mls/hr IV .Q1H1M ONE Stop: 06/25/25 13:39 Last Infusion: 06/25/25 14:42 Dose: Infused Documented By: Admin: 06/25/25 13:20 Dose: 999 mls/hr Documented By: CHARISSA Lactated Ringer's (Lactated Ringers) 1,000 mls @ 999 mls/hr IV .Q1H1M ONE Stop: 06/25/25 13:56 Last Infusion: 06/25/25 14:42 Dose: Infused Documented By: Admin: 06/25/25 13:21 Dose: 999 mls/hr Documented By: CHARISSA Ceftriaxone Sodium/Dextrose (Rocephin/D5w 1gm Iv Premix) 1 gm in 50 mls @ 100 mls/hr IV X1 ONE Stop: 06/25/25 14:03 Last Infusion: 06/25/25 15:43 Dose: Infused Documented By: Admin: 06/25/25 15:09 Dose: 100 mls/hr Documented By: CHARISSA Lactated Ringer's (Lactated Ringers) 1,000 mls @ 999 mls/hr IV .Q1H1M ONE Stop: 06/25/25 14:53 Last Infusion: 06/25/25 16:13 Dose: Infused Documented By: Admin: 06/25/25 15:09 Dose: 999 mls/hr Documented By: CHARISSA Diagnosis Differential diagnosis: Sepsis pneumonia UTI Dispositon Disposition: Discharge Home
[2025-06-25 12:55] LABS: Basophils # (Auto) 0.0 Thou/mm3 (0.0-0.2); Basophils % (Auto) 0 % (0-2.5); Eosinophils # (Auto) 0.2 Thou/mm3 (0.0-0.5); Eosinophils % (Auto) 1 % (0-10); Hematocrit 28.3 % (36.0-46.0); Hemoglobin 9.6 g/dL (12.0-16.0); Immature Granulocytes Auto 0.13 Thou/mm3 (0.00-0.00); Lymphocytes # (Auto) 1.3 Thou/mm3 (1.0-4.8); Lymphocytes % (Auto) 7 % (10-50); Mean Corpuscular HGB Conc 33.9 g/dl (31.0-37.0); Mean Corpuscular Hemoglobin 29.8 pg (25.0-35.0); Mean Corpuscular Volume 88 fL (80-100); Monocytes # (Auto) 0.6 Thou/mm3 (0.0-0.8); Monocytes % (Auto) 4 % (0-12); Neutrophils # (Auto) 15.4 Thou/mm3 (1.8-7.7); Neutrophils % (Auto) 87 % (37-80); Nucleated Red Blood Cell # 0.00 Thou/mm3 (0.00-0.00); Nucleated Red Blood Cell % 0 /100 WBC (0); Platelet Count 170 Thou/mm3 (140-440); RDW Standard Deviation 38.0 fL (36.4-46.3); Red Blood Count 3.22 Miln/mm3 (4.00-5.20); White Blood Count 17.7 Thou/mm3 (3.6-11.0)
--- NOTE | 2025-06-25 12:58 | XR_ITS ---
Examination: AP chest single view TECHNIQUE: Portable upright AP chest single view Date and time: June 25, 2025, 1302 hours, comparison April 15, 2025 INDICATIONS: Sepsis fever today. FINDINGS: Early bibasilar pneumonia. Mild prominence of ventricle. Mild vascular congestion. Prominent osteopenia. IMPRESSION: Early bibasilar pneumonia.
[2025-06-25 13:10] LABS: Lactate (Lactic Acid) 1.9 mMol/L (0.4-2.0)
[2025-06-25 13:11] LABS: INR 1.0 (0.9-1.3); Partial Thromboplastin Time 24.2 Seconds (22.0-36.0); Prothrombin Time 11.0 Seconds (9.0-12.2)
[2025-06-25 13:14] LABS: B-Type Natriuretic Peptide < 20 pg/mL (0-100)
[2025-06-25 13:15] LABS: Alanine Aminotransferase 25 U/L (10-49); Albumin, Serum 3.6 gm/dL (3.4-4.8); Albumin/Globulin Ratio 1.3 (1.2-2.2); Alkaline Phosphatase 63 U/L (46-116); Anion Gap 11 (7-16); Aspartate Amino Transferase 24 U/L (0-34); BUN/Creatinine Ratio 17 Ratio (12-20); Bilirubin,Total 0.3 mg/dL (0.3-1.2); Blood Urea Nitrogen 22 mg/dL (9-23); Calcium 8.8 mg/dL (8.3-10.6); Calcium (Corrected) 9.1 mg/dL (8.5-10.1); Carbon Dioxide 22.4 mMol/L (20.0-31.0); Chloride 102 mMol/L (98-107); Creatinine (Component) 1.3 mg/dL (0.6-1.3); Estimated Creatinine Clearance 54.7 mL/min (>60); Globulin 2.7 gm/dL (2.3-3.5); Glucose 332 mg/dL (74-106); LDH (Lactate Dehydrogenase) 254 U/L (120-246); Magnesium 1.5 mg/dL (1.6-2.6); Osmolality,Calculated 286 (275-295); Potassium 4.7 mMol/L (3.4-5.1); Sodium 135 mMol/L (136-145); Total Protein 6.3 gm/dL (5.7-8.2); Troponin I 0.032 ng/mL (0.0-0.045); eGFR 46 See Note
[2025-06-25] MEDS: ACETAMINOPHEN 325 MG TABLET 650 MG PO (13:19)
[2025-06-25] MEDS: SODIUM CHLORIDE 0.9% 1000 ML 1,000 ML 999 ML IV (13:20)
[2025-06-25 13:21] LABS: Collection Type, Urine Clean Catch
[2025-06-25] MEDS: RINGERS LACTATED 1000 ML 1,000 ML 999 ML IV ×2 (13:21→15:09)
[2025-06-25 13:33] LABS: Amphetamine/Methamp Scrn,U Negative (Negative); Barbiturate Screen,Urine Negative (Negative); Benzodiazepines Screen,Urine Negative (Negative); Benzoylecgonine Screen, Ur Negative (Negative); Fentanyl Screen,Urine Negative (Negative); Opiate Screen,Urine Positive (Negative); THC Screen,Urine Negative (Negative)
--- NOTE | 2025-06-25 13:34 | XR_ITS ---
Examination: CT brain head without contrast. 2-D sagittal coronal reconstructions Date and time of exam:June 25, 2025 1452 hours, comparison November 12, 2024 INDICATIONS: Onset altered mental status and confusion today CTDI: vol (mGy):60.8 DLP: (mGycm):1238 Technique: Multiple CT axial sections of the brain have been obtained, 5 mm slice thickness. Contrast has not been administered. 2-D sagittal, coronal reconstructions have been obtained Low dose protocols were performed. One or more of the following dose reduction techniques were used; automated exposure control, adjustment of the mA and/or KV according to patient size, use of iterative reconstruction technique. Findings: No significant ventricular enlargement. Stable large old infarcts right cerebellar hemisphere Intra-axial or extra-axial hemorrhage density is not seen. No mass effect or midline shift Basal cisterns are not remarkable. Fourth ventricle is midline. Cranial vault intact. Impression: Negative for acute hemorrhage, mass effect or midline shift Advise clinical correlation and follow-up accordingly
[2025-06-25 13:42] LABS: Lipase 21 U/L (12-53); Phosphorous 2.2 mg/dL (2.4-5.1); Procalcitonin 0.21 ng/ml (0.0-0.49)
[2025-06-25] MEDS: cefTRIAXone/D5w 1gm IV premix 1 GM/50 ML BAG IV (15:09)
[2025-06-25 15:33] LABS: Bilirubin,Urine Negative (Negative); Blood,Urine Trace (Negative); Clarity,Urine Clear (Clear/Hazy); Color,Urine Lt-Yellow (Lt Yel-Yel); Culture Indicated,Urine Not Indicated; Glucose, Urine 4+ (Negative); Ketones,Urine Negative (Negative); Leukocyte Esterase,Urine Negative (Negative); Nitrite,Urine Negative (Negative); PH,Urine 5.5 (5.0-7.0); Protein,Urine 1+ (Neg - Trace); RBC,Urine < 1 /hpf (0-3); Specific Gravity,Urine 1.019 (1.001-1.035); Squamous Epithelial Cell,Urine < 1 /hpf (0-5); Urobilinogen,Urine Negative mg/dL (0.0-1.0); WBC,Urine 1 /hpf (0-5)
== END 2025-06-25 16:46 | disposition home or self-care (01) ==
PROVIDERS: Registered Nurse General Practice; Emergency Provider Emergency Medicine; PCP Family Medicine
DX: J18.9 Pneumonia, unspecified organism (principal); R41.0 Disorientation, unspecified; I44.0 Atrioventricular block, first degree; R73.9 Hyperglycemia, unspecified; F17.200 Nicotine dependence, unspecified, uncomplicated; Z68.35 Body mass index [BMI] 35.0-35.9, adult
CPT/HCPCS: 51701; 36415; 70450; 71045; 80053; 80307; 81001; 83605; 83615; 83690; 83735; 83880; 84100; 84145; 84484; 85025; 85610; 85730; 87040; 87400; 87493; 87811; 93005; 96360; 96361; 96365; 99284; J0696; J7030; J7120; A9270

== ENCOUNTER 2025-06-28 14:43 | Outpatient (AMB) | payer OTHER, MEDICAID, SELFPAY ==
--- NOTE | 2025-06-28 14:53 | ORTHONT_ITS ---
Vital signs 06/28/25 14:54 Height 1.65 m Height Method Stated Weight 112.491 kg Weight Measurement Method Estimated by Patient BMI 41.3 BP 155/69 H Blood Pressure Source Automatic Cuff Blood Pressure Location Left Upper Arm Position Sitting Respiration 18 Pulse 107 H Pulse Source Monitor Temp 98.1 F Temp Source Temporal Artery Scan Pulse Oximetry (%) 92 L Oxygen Delivery Method Room Air Med/Allergies Allergies & Medications Allergies Penicillins Allergy (Verified 06/28/25 14:55) Medication Reconciliation hydrocodone 5 mg-acetaminophen 325 mg tablet 1 tab PO Q6HR PRN Pain (Scale Score 4-6) 10/05/22 [History Confirmed 06/28/25] pantoprazole 40 mg tablet,delayed release 40 mg PO DAILY 10/05/22 [History Confirmed 06/28/25] furosemide 40 mg tablet 40 mg PO DAILY diuretic 01/03/24 [History Confirmed 06/28/25] blood sugar diagnostic (Accu-Chek Guide test strips) #100 ea 02/18/24 [Rx Confirmed 06/28/25] blood-glucose meter (Accu-Chek Guide Glucose Meter) #1 ea 02/18/24 [Rx Confirmed 06/28/25] insulin glargine 100 unit/mL subcutaneous solution (Lantus U-100 Insulin) 42 unit (0.42 mL) subcut HS #10 mL 02/18/24 [Rx Confirmed 06/28/25] insulin regular human 100 unit/mL injection solution (Humulin R Regular U-100 Insulin) 14 unit (0.14 mL) subcut TIDWM #10 mL 02/18/24 [Rx Confirmed 06/28/25] lancing device with lancets kit (Accu-Chek Multiclix Lancet kit) #1 ea 02/18/24 [Rx Confirmed 06/28/25] memantine 5 mg tablet 5 mg PO BID #60 tabs 02/18/24 [Rx Confirmed 06/28/25] sitagliptin phosphate 100 mg tablet (Januvia) 100 mg PO QDAY #30 tabs 02/18/24 [Rx Confirmed 06/28/25] trazodone 100 mg tablet 100 mg PO QDAY #30 tabs 02/18/24 [Rx Confirmed 06/28/25] ciprofloxacin HCl 500 mg tablet 500 mg PO BID #14 tabs 11/12/24 [Rx Confirmed 06/28/25] meloxicam 7.5 mg tablet 7.5 mg PO QDAY PRN pain #10 tabs 03/19/25 [Rx Confirmed 06/28/25] tramadol 50 mg tablet 50 mg PO TID PRN pain #10 tabs 03/19/25 [Rx Confirmed 06/28/25] doxycycline hyclate 100 mg capsule 100 mg PO BID #14 caps 06/25/25 [Rx Confirmed 06/28/25] Exam Exam Patient is in no acute distress and is cooperative with the examination today. Breathing is nonlabored. Patient has a normal mood and affect. Bilateral extremities were evaluated and demonstrates sensation intact to light touch. Palpable pedal pulses are present. No significant edema is present. Bilateral hips were examined. The patient has no pain with log roll of the hips. Internal rotation to 30 degrees and external rotation to 30 degrees is painless. Negative FADIR. Right knee was examined today. The right knee is in reasonable alignment. Range of motion from 0-120 degrees. Knee is stable to varus and valgus as well as AP translation with <5mm. Patient has a negative McMurrays. There is no pain with patellofemoral compression and no crepitus noted. The knee is nontender to palpation. Left knee was examined today. The left knee is in varus alignment. Range of motion from 0-115 degrees. Knee is stable to varus and valgus as well as AP translation with <5mm. Patient has a negative McMurrays. There is no pain with patellofemoral compression and no crepitus noted. The knee is tender to palpation medially. X-rays of the left knee that are weightbearing demonstrates moderate to advanced arthritis of the left knee Assessment and Plan Problem List (1) Arthritis of left knee: Status: Acute Plan: Patient is a 64-year-old female who is morbidly obese with left knee pain with multiple medical committees including prior stroke and dementia with severe left knee pain. I discussed surgery with the patient in great detail. She had a prior injection we did not work at all. I discussed with both her and her daughter that I would not recommend a knee replacement given the fact that she has significant dementia and is in a wheelchair. She reports that she does ambulate. I discussed that at this point the only other options are conservative treatment versus a total knee replacement. I discussed with her that if she still using a wheelchair that will be very difficult for her to recover. The daughter is insistent that they want a total knee replacement. I discussed with them that she has had a prior stroke and that she is at high risk for complications. She would need both medical and cardiac clearance. She is off all blood thinners at this time. I also discussed with her that it is not a good prognostic sign that she is in a wheelchair and she has had no improvement with a prior injection. In addition she is on chronic Sandwich's. I discussed with her that she would need to discuss with her prescriber of narcotics to scan to give her postoperative narcotics as pain management will surely be a problem. She is significant medical complications and I do not think that she will do well from an total knee replacement. I discussed this with the patient and they are insistent in proceeding. We will have him get medical clearance to see if she is even a candidate for total knee replacement. Office Procedures GNS Level of Care Nursing/Assessment Patient Status: Established Patient Nursing Assessment/Reassesment: Medication Reconciliation, Orthostatic Vitals, Update PMH in EMR and Vital Signs Coordination of Care: Complex Care and Chronic Disease 1-5, Education Complex Pt/Fam, Consent,records obtained, informed consent, Results/Orders obtained and Staff clarify orders Established Patient Charge Established Patient Point Assignment: 105 Established Patient Point Charge: EP Level 3 (80-115) MA Intake Visit Data Collection New Patient or Established: Established Patient (seen at [facility] within 3 years) Reason for Visit:: KNEE PAIN Seen by Clinical Staff ONLY (RN/MA): No Functional Manager Required: No PCP or OBGYN visit in last 3 months: Yes Hx Now: No Do You Feel Safe at Home: Yes Authorities Contacted: N/A Questionairres Past Medical History Past Medical History Have you ever been diagnosed with any of the following: Neurological Problems Cerebrovascular Accident (CVA): Yes Alzheimer's Disease: Yes Cardiology Problems Myocardial Infarction: No Cardiac Arrhythmia: No Atrial Fibrillation: No Angina: No Coronary Artery Disease: No Atherosclerotic Heart Disease: No Hypercholesterolemia: Yes Congestive Heart Failure: No Hypertension: Yes Respiratory Problems Chronic Obstructive Pulmonary Disease (COPD): No Stomache/Intestinal Problems Gall Bladder Disease: Yes Genital/Urinary Problems Renal Disease: No Endocrine Problems Diabetes Mellitus Type 1: No Diabetes Mellitus Type 2: Yes Systemic Lupus Erythematosus: Yes Subjective Visit Visit for: follow up visit and knee Immunization / Flu Flu Vaccine in the Last 12 Months: Yes Flu Vaccine Exclusion Criteria: Already Received History of Present Illness Chief complaint: KNEE PAIN Chica is a 64-year-old female with left knee pain and back pain. She is on Sandwich chronically. She reports the left knee pain is affecting her quality life and happiness. She has not tried any injections. She has tried formal physical therapy and reports the pain worsened because of it. She reports the entire left leg hurts and there is significant numbness and tingling Personal History Occupation: DISABLED Red flag PMH: smoker BMI Counceling provided: Yes Pain Pain level (0-10): 6 Pain location: outside (lateral) Pain quality: dull and aching Pain timing: increases with activity Associated signs & symptoms: numbness, weakness and stiffness Ambulatory data Ambulatory device: other (specify) (WHEELCHAIR) Walking distance (minutes): 5 Treatments Improvement with previous injections: No Number of Physical Therapy sessions: 1 Improvement with PT: No Improvement with NSAIDS: no Review of Systems Review of Systems: All systems negative unless otherwise noted in HPI.
[2025-06-28 14:54] VITALS: BP 155/69; PULSE 107; RESP 18; TEMP 36.7; O2SAT 92; BMI 41.3
== END 2025-06-28 15:29 | disposition home or self-care (01) ==
LOC: HODSRG 14:43
PROVIDERS: PCP Family Medicine; Referring Provider Family Medicine; Supervising Provider Orthopaedic Surgery Adult Reconstructive Orthopaedic Surgery; Visit Provider Orthopaedic Surgery Adult Reconstructive Orthopaedic Surgery
DX: M17.12 Unilateral primary osteoarthritis, left knee (principal); E66.01 Morbid (severe) obesity due to excess calories; Z68.41 Body mass index [BMI] 40.0-44.9, adult; M25.562 Pain in left knee; R20.0 Anesthesia of skin; R20.2 Paresthesia of skin; E11.9 Type 2 diabetes mellitus without complications; M32.9 Systemic lupus erythematosus, unspecified; I10 Essential (primary) hypertension; E78.00 Pure hypercholesterolemia, unspecified; Z86.73 Personal history of transient ischemic attack (TIA), and cerebral infarction without residual deficits; F03.90 Unspecified dementia, unspecified severity, without behavioral disturbance, psychotic disturbance, mood disturbance, and anxiety
CPT/HCPCS: 99213; G0463

== ENCOUNTER 2025-08-16 22:52 | Inpatient (IN) | payer OTHER, MEDICAID, MEDICARE, SELFPAY ==
[2025-08-16 22:53] VITALS: PULSE 124; RESP 22; BMI 42.0
[2025-08-16 23:08] VITALS: BP 156/72; PULSE 126; PULSE 130; RESP 22; RESP 26; TEMP 39.1; O2SAT 92; O2SAT 94
--- NOTE | 2025-08-16 23:13 | PD.EDFALL ---
ED Fall Injury RME/HPI General Chief Complaint: Fall Stated Complaint: FALL Time Seen by Provider: 08/16/25 23:13 Arrival date/time: 08/16/25 22:52 RME / HPI RME / HPI Narrative: Dr. Mathis?s Main ED Evaluation: 64yo female with a history of Alzheimer's, DM BIBA from home presents to the ED for a fall. Patient states she was using the restroom and when she went to get up, I just fell . Patient states that her legs are weak. Patient notes she's had a cough x 2 days and fever x yesterday morning. Patient does have BLE pain from the fall. She denies any head strikes or loss of consciousness. Denies any other associated symptoms. Related Data Home Medications ?Medication ?Instructions ?Recorded ?Confirmed hydrocodone 5 mg-acetaminophen 325 1 tab PO Q6HR PRN Pain (Scale 10/05/22 06/28/25 mg tablet Score 4-6) pantoprazole 40 mg tablet,delayed 40 mg PO DAILY 10/05/22 06/28/25 release furosemide 40 mg tablet 40 mg PO DAILY diuretic 01/03/24 06/28/25 Previous Rx's ?Medication ?Instructions ?Recorded blood sugar diagnostic (Accu-Chek #100 ea 02/18/24 Guide test strips) blood-glucose meter (Accu-Chek #1 ea 02/18/24 Guide Glucose Meter) insulin glargine 100 unit/mL 42 unit (0.42 mL) subcut HS #10 mL 02/18/24 subcutaneous solution (Lantus U-100 Insulin) insulin regular human 100 unit/mL 14 unit (0.14 mL) subcut TIDWM #10 02/18/24 injection solution (Humulin R mL Regular U-100 Insulin) lancing device with lancets kit #1 ea 02/18/24 (Accu-Chek Multiclix Lancet kit) memantine 5 mg tablet 5 mg PO BID #60 tabs 02/18/24 sitagliptin phosphate 100 mg 100 mg PO QDAY #30 tabs 02/18/24 tablet (Januvia) trazodone 100 mg tablet 100 mg PO QDAY #30 tabs 02/18/24 ciprofloxacin HCl 500 mg tablet 500 mg PO BID #14 tabs 11/12/24 meloxicam 7.5 mg tablet 7.5 mg PO QDAY PRN pain #10 tabs 03/19/25 tramadol 50 mg tablet 50 mg PO TID PRN pain #10 tabs 03/19/25 doxycycline hyclate 100 mg capsule 100 mg PO BID #14 caps 06/25/25 Allergies Allergy/AdvReac Type Severity Reaction Status Date / Time Penicillins Allergy Verified 08/16/25 22:53 Review of Systems Review of Systems Systems Reviewed: All systems reviewed, normal except as documented Past Medical History Past Medical History NEUROLOGIC: Positive Cerebrovascular Accident and Alzheimer's Disease CARDIAC: Positive Hypercholesterolemia and Hypertension; Negative Cardiac Disorders, Myocardial Infarction, Cardiac Arrhythmia, Atrial Fibrillation, Angina, Coronary Artery Disease, Atherosclerotic Heart Disease or Congestive Heart Failure RESPIRATORY: Negative Chronic Obstructive Pulmonary Disease (COPD) GASTROINTESTINAL: Positive Gastrointestinal Disorders and Gall Bladder Disease GENITOURINARY: Negative Renal Disease ENDOCRINE: Positive Diabetes Mellitus Type 2 and Systemic Lupus Erythematosus; Negative Diabetes Mellitus Type 1 Social History SMOKING STATUS: Light (< 1 pack/day) SUBSTANCE USE: does not use ED Exam Narrative Physical exam: Generally patient is alert ill-appearing elderly female, heart tachycardic rate with regular rhythm, lungs clear to auscultation equal bilaterally, abdomen soft nondistended nontender and obese, skin is warm pale and dry without rash, neurologic exam shows the patient be alert follows commands without focal motor deficits Course Course Course Narrative: 2306: Sepsis alert initiated. Orders made at this time are congruent with ED Adult Sepsis Order List. Re-evaluation is to be completed. 0013: NS IVF ordered. Quality Measures Possible source: genitourinary Blood cultures ordered: yes Antibiotic ordered: Yes Pertinent labs: 08/16/25 23:22 Lactic Acid 3.8 H mMol/L (0.4-2.0) sepsis Orders Category Date Time Status Bedside COVID-19 Antigen Test NOW Care 08/16/25 23:18 Active EKG (ED ONLY) *Do not use* NOW Care 08/16/25 23:14 Completed Insert IV NOW Care 08/16/25 23:13 Active Urinary Catheter QS Care 08/16/25 23:12 Active EKG (ED Only) Stat Exams 08/16/25 23:14 Draft XR chest 1V portable Stat Exams 08/16/25 23:19 Completed Blood Culture (Lab) Stat Lab 08/16/25 23:22 Ordered CBC Stat Lab 08/16/25 23:22 Completed CMP [Comprehensive Metabolic Panel] Stat Lab 08/16/25 23:22 Completed Influenza A & B Rapid Panel Stat Lab 08/16/25 23:42 Ordered Lactic Acid [Lactate (Lactic Acid)] Stat Lab 08/16/25 23:22 Results RSV [Respiratory Syncytial Virus Ag] Stat Lab 08/16/25 23:19 Ordered Troponin I Stat Lab 08/16/25 23:22 Completed UA [Urinalysis] Stat Lab 08/16/25 23:24 Completed Acetaminophen Tab [Tylenol Tab] Med 08/16/25 23:27 Discontinued 650 mg PO X1 ONE Labetalol IV [Trandate IV] Med 08/17/25 01:01 Once 20 mg IVP X1 ONE Ringers Lactated 1000 ml [Lactated Ringers] 1,000 ml Med 08/17/25 00:13 Active IV 999 mls/hr cefTRIAXone/D5w 1gm IV premix [Rocephin/D5w 1gm IV Med 08/17/25 00:38 Pending premix] 1 gm in 50 ml IV X1 Vital Signs Vital signs: Vital Signs Temperature 102.4 F H 08/16/25 23:08 Pulse Rate 126 H 08/16/25 23:08 Respiratory Rate 26 H 08/16/25 23:08 Blood Pressure 156/72 H 08/16/25 23:08 Pulse Oximetry (%) 94 L 08/16/25 23:08 Oxygen Delivery Method Room Air 08/16/25 23:08 Fall MDM Narrative MDM Narrative:: Scribe Attestation: 08/16/25 - Mandy Almonte am scribing for and in the presence of Dr. Mathis. Patient has SIRS criteria consisting of tachycardia with a temperature 102 degrees. Septic workup was initiated. Lactic acid level is 3.8. Urine is infected. Chest x-ray is clear. Patient received Rocephin 1 g IV after urine culture and blood cultures were obtained. Patient was hydrated with a liter normal saline. She is hypertensive here in the emergency room with a blood pressure 170/110. She will receive a single dose of labetalol 20 mg IV. I interpreted all labs. I discussed this case with the hospitalist. Patient will be admitted to the hospital for further treatment and evaluation for her sepsis secondary to UTI. Patient data External records reviewed:: [facility] previous records (Per chart review, patient was seen here on 06/25/25 for a fever.) and EMS form Clinical information provided by:: patient Social determinants that could affect healthcare access:: none Patient has the following chronic illnesses:: Alzheimer's, DM, HTN, HLD How is presenting disease/condition affected by chronic disease/condition?: uneffected by Evaluation data The following diagnostics were reviewed and interpreted by me:: lab results, radiology exam(s) and EKG tracing(s) Lab and/or radiology exams considered but not ordered:: none Interpretation Summary: [facility] Report Signed Patient: ULIS SAINZ [facility]. Record#: [id number] Birthdate: 1960 Age/Sex: 64 / F Location: [facility] Attending Dr: Ordering Physician: Pop Mathis DO Date of Service: 08/16/25 Procedure(s): XR chest 1V portable Accession Number(s): [id number] cc: Saúl Chew MD; Pop Mathis DO~ EXAMINATION: AP chest single view TECHNIQUE: AP portable semiupright chest single view Date and time: August 16, 2025, 1140 hours INDICATIONS: Chest pain today. FINDINGS: Mild prominence of left ventricle No lobar pneumonia or pulmonary edema. Moderate osteopenia IMPRESSION: Mild prominence left ventricle No pneumonia or pulmonary edema Dictated By: Saúl Chew MD Signed By: <Electronically signed by Saúl Chew MD in OV> 08/17/25 0002 Medications / Prescriptions Medications or Prescriptions considered but not ordered:: none Medication administrations:: Medication Administration History Lactated Ringer's (Lactated Ringers) 1,000 mls @ 999 mls/hr IV .Q1H1M ONE Stop: 08/17/25 01:13 Last Admin: 08/17/25 00:30 Dose: 999 mls/hr Documented By: PIERRE Ceftriaxone Sodium/Dextrose (Rocephin/D5w 1gm Iv Premix) 1 gm in 50 mls @ 100 mls/hr IV X1 ONE Stop: 08/17/25 01:07 Labetalol HCl (Labetalol Inj 5 Mg/Ml Vial 20 Ml) 20 mg IVP X1 ONE Stop: 08/17/25 01:02 Discontinued Medications Acetaminophen (Acetaminophen 325 Mg Tablet) 650 mg PO X1 ONE Stop: 08/16/25 23:28 Last Admin: 08/16/25 23:39 Dose: 650 mg Documented By: PIERRE see above Consultations Consultation(s) initiated? (list below): Yes Diagnosis Fall Differential Diagnosis: other (See MDM) Most likely diagnosis given after review of the tests above:: see clinical impression below Admission Indicated Admission indicated?: indicated Admission Request Was there a request for admission?: Yes Admission Attestation Admission request attestation: Discussed case with [] from Hospitalist service regarding admission. Discussed patients ED course, exam findings, labs, and radiology results. The Hospitalist [agrees,declines] to accept the patient for admission. Disposition Plan Disposition Plan: Admit Critical Care Time Critical Care Time Critical Care Time: Yes Total Critical Care Time (min.): 35 Attestation: Excluding other billable procedures Discharge Plan Plan Patient Disposition: Admit Acute Care w/in Hospital Prescriptions/Referrals Prescriptions/Med Rec: No Action furosemide 40 mg tablet 40 mg PO DAILY meloxicam 7.5 mg tablet 7.5 mg PO QDAY PRN (Reason: pain) Qty: 10 0RF tramadol 50 mg tablet 50 mg PO TID PRN (Reason: pain) Qty: 10 0RF hydrocodone-acetaminophen 5-325 mg tablet 1 tab PO Q6HR PRN (Reason: Pain (Scale Score 4-6)) pantoprazole 40 mg tablet,delayed release (DR/EC) 40 mg PO DAILY Patient Comments: TAKE ONE TABLET BY MOUTH EVERY DAY insulin glargine [Lantus U-100 Insulin] 100 unit/mL Solution 42 unit subcut HS Qty: 10 1RF Humulin R Regular U-100 Insuln 100 unit/mL Solution 14 unit subcut TIDWM Qty: 10 1RF trazodone 100 mg tablet 100 mg PO QDAY Qty: 30 0RF (DME) blood-glucose meter [Accu-Chek Guide Glucose Meter] Misc See Rx Instructions .Route Qty: 1 0RF Rx Instructions: As directed (DME) Accu-Chek Guide test strips Strip See Rx Instructions .Route Qty: 100 0RF Rx Instructions: As directed (DME) lancing device with lancets [Accu-Chek Multiclix Lancet] Kit See Rx Instructions .Route Qty: 1 0RF Rx Instructions: As directed Januvia 100 mg tablet 100 mg PO QDAY Qty: 30 0RF memantine 5 mg tablet 5 mg PO BID Qty: 60 0RF ciprofloxacin HCl 500 mg tablet 500 mg PO BID Qty: 14 0RF doxycycline hyclate 100 mg capsule 100 mg PO BID Qty: 14 0RF Referrals: Duglas Dunaway MD [Primary Care Provider, Family Practice] - In 1 week Problem List Clinical Impression: Sepsis, UTI (urinary tract infection) Patient/Caregiver Discharge Instructions Print Language: Belarusian Stand Alone Forms: [facility]rud[facility] Award Info., Patient Portal Info Letter
--- NOTE | 2025-08-16 23:14 | EKG_ITS ---
[facility] Test Date: 2025-08-16 Pat Name: LUIS SAINZ Department: Room: - Gender: Female Statistical Geneticist: : 1960 Requested By: Pop Pacheco Order Number: [id number] Reading MD: Pop Pacheco Measurements Intervals [place] Rate: 132 P: 78 WI: 157 QRS: 74 QRSD: 101 T: 79 QT: 331 QTc: 491 Interpretive Statements SINUS TACHYCARDIA WITH OCCASIONAL VENTRICULAR PREMATURE COMPLEXES MODERATE T-WAVE ABNORMALITY, CONSIDER ANTERIOR ISCHEMIA [-0.1+ mV T-WAVE IN V3/V4] Compared to ECG 06/25/2025 12:46:59 Ventricular premature complex(es) now present T-wave abnormality now present Possible ischemia now present First degree AV block no longer present /store/S0/[id number]/ecg/[id number].pdf
--- NOTE | 2025-08-16 23:19 | XR_ITS ---
EXAMINATION: AP chest single view TECHNIQUE: AP portable semiupright chest single view Date and time: August 16, 2025, 1140 hours INDICATIONS: Chest pain today. FINDINGS: Mild prominence of left ventricle No lobar pneumonia or pulmonary edema. Moderate osteopenia IMPRESSION: Mild prominence left ventricle No pneumonia or pulmonary edema
[2025-08-16 23:30] LABS: Collection Type, Urine Voided; Squamous Epithelial Cell,Urine 0 /hpf (0-5)
[2025-08-16 23:33] LABS: Lactate (Lactic Acid) 3.8 mMol/L (0.4-2.0)
[2025-08-16 23:34] LABS: Basophils # (Auto) 0.0 Thou/mm3 (0.0-0.2); Basophils % (Auto) 0 % (0-2.5); Eosinophils # (Auto) 0.3 Thou/mm3 (0.0-0.5); Eosinophils % (Auto) 3 % (0-10); Hematocrit 33.6 % (36.0-46.0); Hemoglobin 11.4 g/dL (12.0-16.0); Immature Granulocytes Auto 0.04 Thou/mm3 (0.00-0.00); Lymphocytes # (Auto) 1.9 Thou/mm3 (1.0-4.8); Lymphocytes % (Auto) 21 % (10-50); Mean Corpuscular HGB Conc 33.9 g/dl (31.0-37.0); Mean Corpuscular Hemoglobin 29.4 pg (25.0-35.0); Mean Corpuscular Volume 87 fL (80-100); Monocytes # (Auto) 0.6 Thou/mm3 (0.0-0.8); Monocytes % (Auto) 6 % (0-12); Neutrophils # (Auto) 6.6 Thou/mm3 (1.8-7.7); Neutrophils % (Auto) 70 % (37-80); Nucleated Red Blood Cell # 0.00 Thou/mm3 (0.00-0.00); Nucleated Red Blood Cell % 0 /100 WBC (0); Platelet Count 213 Thou/mm3 (140-440); RDW Standard Deviation 36.2 fL (36.4-46.3); Red Blood Count 3.88 Miln/mm3 (4.00-5.20); White Blood Count 9.5 Thou/mm3 (3.6-11.0)
[2025-08-16 23:37] LABS: Bacteria,Urine 1+; Bilirubin,Urine Negative (Negative); Blood,Urine 1+ (Negative); Budding Yeast,Urine Present; Clarity,Urine Turbid (Clear/Hazy); Color,Urine Yellow (Lt Yel-Yel); Glucose, Urine 2+ (Negative); Hyaline Casts,Urine < 1 /hpf (0-1); Ketones,Urine Negative (Negative); Leukocyte Esterase,Urine Positive (Negative); Nitrite,Urine Negative (Negative); PH,Urine 6.0 (5.0-7.0); Protein,Urine 2+ (Neg - Trace); RBC,Urine 15 /hpf (0-3); Specific Gravity,Urine 1.012 (1.001-1.035); Urobilinogen,Urine Negative mg/dL (0.0-1.0); WBC,Urine 570 /hpf (0-5)
[2025-08-16 23:39] VITALS: TEMP 39.1
[2025-08-16] MEDS: ACETAMINOPHEN 325 MG TABLET 650 MG PO (23:39)
[2025-08-17] VITALS (44 sets, daily range): BP systolic 92–202; BP diastolic 74–120; PULSE 78–128; RESP 13–95; TEMP 36.4–39.3; O2SAT 81–98; BMI 37.9; BMI 35.6
[2025-08-17 00:21] LABS: Alanine Aminotransferase 20 U/L (10-49); Albumin, Serum 4.6 gm/dL (3.4-4.8); Albumin/Globulin Ratio 1.4 (1.2-2.2); Alkaline Phosphatase 77 U/L (46-116); Anion Gap 12 (7-16); Aspartate Amino Transferase 25 U/L (0-34); BUN/Creatinine Ratio 17 Ratio (12-20); Bilirubin,Total 0.2 mg/dL (0.3-1.2); Blood Urea Nitrogen 22 mg/dL (9-23); Calcium 10.3 mg/dL (8.3-10.6); Calcium (Corrected) 10.3 mg/dL (8.5-10.1); Carbon Dioxide 27.6 mMol/L (20.0-31.0); Chloride 99 mMol/L (98-107); Creatinine (Component) 1.3 mg/dL (0.6-1.3); Estimated Creatinine Clearance 49.5 mL/min (>60); Globulin 3.3 gm/dL (2.3-3.5); Glucose 140 mg/dL (74-106); Osmolality,Calculated 282 (275-295); Potassium 3.6 mMol/L (3.4-5.1); Sodium 139 mMol/L (136-145); Total Protein 7.9 gm/dL (5.7-8.2); Troponin I 0.037 ng/mL (0.0-0.045); eGFR 46 See Note
[2025-08-17] MEDS: RINGERS LACTATED 1000 ML 1,000 ML 999 ML IV ×2 (00:30→02:39)
[2025-08-17] MEDS: LABETALOL INJ 5 MG/ML VIAL 20 ML 20 MG IVP (01:12)
[2025-08-17] MEDS: cefTRIAXone/D5w 1gm IV premix 1 GM/50 ML BAG IV (01:12)
--- NOTE | 2025-08-17 01:34 | XR_ITS ---
Examination: CT brain head without contrast. 2-D sagittal coronal reconstructions Date and time of exam: August 17, 2025, 0201 hours INDICATIONS: Altered mental status today CTDI: vol (mGy): 56.41 DLP: (mGycm): 1160 Technique: Multiple CT axial sections of the brain have been obtained, 5 mm slice thickness. Contrast has not been administered. 2-D sagittal, coronal reconstructions have been obtained Low dose protocols were performed. One or more of the following dose reduction techniques were used; automated exposure control, adjustment of the mA and/or KV according to patient size, use of iterative reconstruction technique. Findings: No significant ventricular enlargement. Stable right cerebellar old infarct Intra-axial or extra-axial hemorrhage density is not seen. No mass effect or midline shift Basal cisterns are not remarkable. Fourth ventricle is midline. Cranial vault intact. Impression: Negative for acute hemorrhage, mass effect or midline shift Advise clinical correlation and follow-up accordingly
[2025-08-17 02:08] LABS: Influenza A Ag Negative; Influenza B Ag Negative; Respiratory Syncytial Virus Ag Negative (Negative)
[2025-08-17 02:26] LABS: Reflex Lactate? Y
--- NOTE | 2025-08-17 02:28 | XR_ITS ---
EXAMINATION: Right foot 3 views Technique: AP, oblique, lateral views foot, 3 views Date and time of exam: August 17, 2025, 0233 hours INDICATIONS: Patient fell today with injury to the foot, foot pain. FINDINGS: Prominent hallux valgus with bunion deformity Severe osteopenia No acute fracture Plantar posterior bony calcaneal spurs IMPRESSION: No acute fracture
[2025-08-17 03:14] LABS: Lactic Acid, 3 HR 1.9 mMol/L (0.4-2.0)
--- NOTE | 2025-08-17 03:23 | PD.RESHP ---
Documentation for date of: 08/17/25 [facility] History of Present Illness Chief complaint: Fall History of present illness: This is a 64-year-old female with past medical history of Ischemic CVA involving the right cerebellum, vascular dementia, diabetes mellitus type 2 and chronic low back pain presented to the ED after she had a fall today. She states that she had a fall due to the mechanical reasons and hit her head. She denies any dizziness, loss of consciousness, vomiting, headache, chest pain, chest tightness, chest palpitations, shortness of breath. She denies any abdominal pain, urinary frequency, urinary urgency, burning micturition She complains of severe pain in right ankle right knee and left ankle after she had a fall. She also endorses pain on the lower back At her baseline she uses electric chair to move. Today ED visit vitals BP 156/72, pulse rate 126, respiratory 26, temperature 92.4, saturating 94% on room air Pertinent lab findings for hemoglobin 11.4, hematocrit 33.6, estimated creatinine clearance 49.5, blood glucose 140, urinalysis showing turbid urine with positive leukocyte esterase and urine WBC [address] head, x-ray foot Past medical history: As stated above Past surgical history: None Allergic history: Penicillin Family history: Noncontributory Social history: Used to use tobacco in the past. Review of Systems Review of Systems Systems Reviewed: All systems reviewed, normal except as documented Exam Vital Signs Temp Pulse Resp BP Pulse Ox O2 Del Method 102.8 F H 107 H 20 165/74 H 96 Room Air 08/17/25 00:38 08/17/25 02:59 08/17/25 02:59 08/17/25 02:59 08/17/25 02:59 08/17/25 02:59 Narrative Exam GENERAL: NAD, AAOx3 HEENT: Moist mucosa. Eyes open, symmetrical, & clear CARDIO: Rapid Regular rhythm Noted. No Murmurs. PULM: No noted coughing/dyspnea CTA B/L, no R/W/R GI: Abdomen soft, nondistended,Non Tender. SKIN/MSK/EXT: Swelling over the right ankle area and extreme tenderness to the palpation of right ankle, right knee, left ankle. Tender on thoracic vertebra. NEURO: AAOx3, no focal neuro deficits, able to move all 4 extremities. Results: Labs 08/17/25 05:20 08/17/25 05:20 Labs: Short CBC 08/16/25 Range/Units 23:22 WBC 9.5 (3.6-11.0) Thou/mm3 Hgb 11.4 L (12.0-16.0) g/dL Hct 33.6 L (36.0-46.0) % Plt Count 213 (140-440) Thou/mm3 BMP 08/16/25 23:22 Sodium 139 Potassium 3.6 Chloride 99 Carbon Dioxide 27.6 BUN 22 Creatinine 1.3 Glucose 140 H Calcium 10.3 Cardiac Enzymes 08/16/25 Range/Units 23:22 Troponin I 0.037 (0.0-0.045) ng/mL Liver Function 08/16/25 Range/Units 23:22 Total Bilirubin 0.2 L (0.3-1.2) mg/dL AST 25 (0-34) U/L ALT 20 (10-49) U/L Alkaline Phosphatase 77 (46-116) U/L Albumin 4.6 (3.4-4.8) gm/dL Urine 08/16/25 Range/Units 23:24 Urine Color Yellow (Lt Yel-Yel) Urine Clarity Turbid A (Clear/Hazy) Urine pH 6.0 (5.0-7.0) Ur Specific [place] 1.012 (1.001-1.035) Urine Protein 2+ A (Neg - Trace) Urine Glucose (UA) 2+ A (Negative) Quality Measures Quality Measures sepsis Current suspected stage: sepsis Possible source: genitourinary Blood cultures ordered: yes Antibiotic ordered: Yes Medications Home Medications and Allergies Home Medications ?Medication ?Instructions ?Recorded ?Confirmed ?Type hydrocodone 5 mg-acetaminophen 325 1 tab PO Q6HR PRN Pain (Scale 10/05/22 08/17/25 History mg tablet Score 4-6) pantoprazole 40 mg tablet,delayed 40 mg PO DAILY 10/05/22 08/17/25 History release furosemide 40 mg tablet 20 mg PO DAILY diuretic 01/03/24 08/17/25 History acetaminophen 325 mg tablet 650 mg PO BID PRN pain 08/17/25 08/17/25 History atorvastatin 40 mg tablet 40 mg PO HS 08/17/25 08/17/25 History donepezil 10 mg tablet 10 mg PO HS 08/17/25 08/17/25 History gabapentin 600 mg tablet 600 mg PO TID 08/17/25 08/17/25 History insulin glargine 100 unit/mL 63 unit subcut HS 08/17/25 08/17/25 History subcutaneous solution (Lantus U-100 Insulin) lisinopril 40 mg tablet 40 mg PO QDAY 08/17/25 08/17/25 History nortriptyline 25 mg capsule 25 mg PO QPM 08/17/25 08/17/25 History potassium chloride 8 mEq 8 meq PO QPM 08/17/25 08/17/25 History tablet,extended release quetiapine 200 mg tablet 200 mg PO BID 08/17/25 08/17/25 History trazodone 100 mg tablet 150 mg PO HS 08/17/25 08/17/25 History Allergies Allergy/AdvReac Type Severity Reaction Status Date / Time Penicillins Allergy Verified 08/16/25 22:53 Visit Medications Lactated Ringer's (Lactated Ringers) 1,000 mls @ 999 mls/hr IV .Q1H1M ONE Stop: 08/17/25 03:33 Last Admin: 08/17/25 02:39 Dose: 999 mls/hr Discontinued Medications Acetaminophen (Acetaminophen 325 Mg Tablet) 650 mg PO X1 ONE Stop: 08/16/25 23:28 Last Admin: 08/16/25 23:39 Dose: 650 mg Lactated Ringer's (Lactated Ringers) 1,000 mls @ 999 mls/hr IV .Q1H1M ONE Stop: 08/17/25 01:13 Last Infusion: 08/17/25 01:39 Dose: Infused Ceftriaxone Sodium/Dextrose (Rocephin/D5w 1gm Iv Premix) 1 gm in 50 mls @ 100 mls/hr IV X1 ONE Stop: 08/17/25 01:07 Last Infusion: 08/17/25 01:34 Dose: Infused Labetalol HCl (Labetalol Inj 5 Mg/Ml Vial 20 Ml) 20 mg IVP X1 ONE Stop: 08/17/25 01:02 Last Admin: 08/17/25 01:12 Dose: 20 mg Assessment & Plan Plan This is a 64-year-old female with past medical history of Ischemic CVA involving the right cerebellum, vascular dementia, diabetes mellitus type 2 and chronic low back pain presented to the ED after she had a fall today. # Urinary tract infection # Sepsis secondary to UTI # Lactic acidosis Initial vitals pulse rate 126, respiratory 26, temperature 102.4?sepsis according to SIRS criteria. Lactate 3.8 Denies any symptoms of UTI Urine is looking very cloudy, urine WBC 570, urinary leukocyte esterase positive Given ceftriaxone 1 g in the ED. ?Starting on IV ceftriaxone 1 g daily ?Follow-up with blood and urine cultures. # Fall Denies any palpitation dizziness or loss of consciousness Ordered CT head and CT is negative for any mass or hemorrhage or any midline shift ?Most likely mechanical. ?Continue to monitor. # Hypertensive urgency Denies any symptoms of headache, blurriness of vision, chest pain. Her initial blood pressure when she arrived is 156/72 but around 1:30 AM her blood pressure rise to 200/97. IV labetalol 20 mg given when her blood pressure is over 200/97. Initial blood pressure goal is 25 to 30% reduction. ?Over the long hours the goal blood pressure is less than 160/100 ?Continue to monitor. ?IV labetalol 10 mg as needed. ?Continue her home medications after medication reconciliation #Ankle sprain Complains of right ankle swelling and twisting ?Ordered x-ray foot ?Follow-up with x-ray results. # Diabetes Takes glargine and Humulin at her home. ?Starting on sliding scale ?Continue to monitor Code status: Full DVT prophylaxis: Lovenox Diet: Carb consistent [place]: None Lines: PIV Supplemental O2: none Disposition: Med tele I discussed this case with my senior Dr. Munoz and my attending Dr.Alhalaibeh Mayo Raya MD PGY1 Attending Provider Attestation/Addendum After examination of the patient and review of the clinical data I feel that this patient needs admission to the hospital for further treatment/evaluation. Plan of care discussed with patient and is in agreement. I Rudi Jones MD, attest that I was physically present for baca portions of evaluation, and examined patient, labs and imagings and plan of care were discussed with IM residents team, and I agree with the findings and plans documented above.
--- NOTE | 2025-08-17 03:54 | PRELIM_ITS ---
CT scan of the head without intravenous contrast (axial sections with sagittal and coronal reformats) August 17, 2025 at 0201 hours Clinical history: Altered mental status. Comparison: None available at the time of this report. Findings: There is no evidence of intracranial hemorrhage, mass effect or midline shift. There are periventricular white matter hypodensities, compatible with chronic small vessel ischemia. There is mild volume loss. The calvarium is unremarkable. The mastoid air cells and the visualized paranasal sinuses are clear. Impression: No evidence of intracranial hemorrhage, mass effect or midline shift. Periventricular chronic small vessel ischemia and volume loss. Aspect score 10. Report Electronically Signed By: Phani Pitts 08/17/2025 3:53:52 AM [EST]
--- NOTE | 2025-08-17 04:33 | PC.NURSE ---
CALLED DR RIVERA TO MAKE THEM AWARE THAT [facility] IS PENDING. OKAY WITH WAITING. NO NEW ORDERS AT THIS TIME
[2025-08-17 05:32] LABS: Basophils # (Auto) 0.0 Thou/mm3 (0.0-0.2); Basophils % (Auto) 0 % (0-2.5); Eosinophils # (Auto) 0.1 Thou/mm3 (0.0-0.5); Eosinophils % (Auto) 1 % (0-10); Hematocrit 27.8 % (36.0-46.0); Hemoglobin 9.4 g/dL (12.0-16.0); Immature Granulocytes Auto 0.03 Thou/mm3 (0.00-0.00); Lymphocytes # (Auto) 1.6 Thou/mm3 (1.0-4.8); Lymphocytes % (Auto) 17 % (10-50); Mean Corpuscular HGB Conc 33.8 g/dl (31.0-37.0); Mean Corpuscular Hemoglobin 29.3 pg (25.0-35.0); Mean Corpuscular Volume 87 fL (80-100); Monocytes # (Auto) 0.6 Thou/mm3 (0.0-0.8); Monocytes % (Auto) 7 % (0-12); Neutrophils # (Auto) 7.2 Thou/mm3 (1.8-7.7); Neutrophils % (Auto) 75 % (37-80); Nucleated Red Blood Cell # 0.00 Thou/mm3 (0.00-0.00); Nucleated Red Blood Cell % 0 /100 WBC (0); Platelet Count 177 Thou/mm3 (140-440); RDW Standard Deviation 36.1 fL (36.4-46.3); Red Blood Count 3.21 Miln/mm3 (4.00-5.20); White Blood Count 9.5 Thou/mm3 (3.6-11.0)
--- NOTE | 2025-08-17 05:40 | PC.NURSE ---
PTS SON KAYLA CALLED WANTING AN UPDATE ON THE STATUS OF HIS MOTHER. SON MADE AWARE OF PTS STATUS. SON THANKFUL FOR REPORT
[2025-08-17 06:05] LABS: Alanine Aminotransferase 18 U/L (10-49); Albumin, Serum 3.7 gm/dL (3.4-4.8); Albumin/Globulin Ratio 1.5 (1.2-2.2); Alkaline Phosphatase 60 U/L (46-116); Anion Gap 11 (7-16); Aspartate Amino Transferase 22 U/L (0-34); BUN/Creatinine Ratio 18 Ratio (12-20); Bilirubin,Total 0.2 mg/dL (0.3-1.2); Blood Urea Nitrogen 21 mg/dL (9-23); Calcium 9.1 mg/dL (8.3-10.6); Calcium (Corrected) 9.3 mg/dL (8.5-10.1); Carbon Dioxide 26.1 mMol/L (20.0-31.0); Chloride 101 mMol/L (98-107); Creatinine (Component) 1.2 mg/dL (0.6-1.3); Estimated Creatinine Clearance 53.7 mL/min (>60); Globulin 2.5 gm/dL (2.3-3.5); Glucose 230 mg/dL (74-106); Magnesium 1.2 mg/dL (1.6-2.6); Osmolality,Calculated 285 (275-295); Phosphorous 3.6 mg/dL (2.4-5.1); Potassium 4.0 mMol/L (3.4-5.1); Sodium 138 mMol/L (136-145); Total Protein 6.2 gm/dL (5.7-8.2); eGFR 51 See Note
[2025-08-17] MEDS: ACETAMINOPHEN 325 MG TABLET 650 MG PO (06:10)
[2025-08-17] MEDS: INSULIN LISPRO (AdmeLOG) 1 UNIT/0.01 ML UNIT SC ×3 (07:49→21:01)
[2025-08-17 08:16] LABS: Immature Reticulocyte Fraction 13.7 % (3.0-15.9); Reticulocyte % (Auto) 1.7 % (0.5-1.5); Reticulocyte Absolute Auto 53.1 Biln/L (25.0-75.0); Reticulocyte Hgb Content 33.2 pg (28.0-35.0)
[2025-08-17] MEDS: Magnesium Sulfate 4 GM Ivpb 4 GM/50 ML BAG IV (08:16)
[2025-08-17] MEDS: LABETALOL INJ 5 MG/ML VIAL 20 ML 10 MG IVP (08:20)
[2025-08-17 08:27] LABS: Ferritin 61 ng/mL (7.3-270.7); Iron 22 mcg/dL (50-170); Percent Iron Saturation 8 % (20-55); Total Iron Binding Capacity 264 mcg/dL (250-425); Unsaturated Iron Binding 242 (225-295)
--- NOTE | 2025-08-17 08:52 | PC.NURSE ---
CALLED AND SPOKE TO DR. WOODALL WHO REPORTS THAT THEY WILL CANCEL THE LABETALOL
[2025-08-17] MEDS: ENOXAPARIN SOD INJ 40 MG/0.4 ML SYRINGE SC (10:11)
[2025-08-17] MEDS: MEMANTINE HCL 5 MG TABLET PO ×2 (10:11→21:03)
--- NOTE | 2025-08-17 10:43 | ECHO_ITS ---
Patient Info Name: Chica Naidu Age: 64 years : 1960 Gender: Female Ht: 163 cm Wt: 100 kg BSA: 2.18 m2 BP: 146 / 87 mmHg HR: 84 bpm Heart Rhythm: Sinus Rhythm Exam Date: 08/19/2025 11:29 AM Admit Date: 08/17/2025 Site: [facility] Patient Status: I Technical Quality: Poor Exam Type: CA echo doppler complete Senior Qa Tester: Daya Ibanez Ordering Physician: Rico Kern Study Info Indications Syncope - Primary Location: [id number] Left Ventricular Outflow Tract Name Value Normal LVOT Doppler LVOT Peak Velocity 64 cm/s LVOT Mean Gradient 1 mmHg LVOT VTI 10 cm LVOT VTI/AV VTI Ratio 0.7 Aortic Valve Name Value Normal AV Doppler AV Peak Velocity 93 cm/s AV Mean Gradient 2 mmHg AV VTI 15 cm AV DI (Hari) 0.68 Ventricles Name Value Normal LV Dimensions 2D/MM IVS Diastolic Thickness (2D) 1.1 cm 0.6-0.9 LVID Diastole (2D) 4.8 cm 3.8-5.2 LVIW Diastolic Thickness (2D) 0.9 cm 0.6-0.9 LVID Systole (2D) 3.8 cm 2.2-3.5 LV Mass (2D Cubed) 170.19 g 67.00-162.00 LV Mass Index (2D Cubed) 78 g/m2 43-95 Relative Wall Thickness (2D) 0.38 <=0.42 IVS/LVIW Diastolic Thickness (2D) 1.22 0.00-1.50 LV Fractional Shortening/Ejection Fraction 2D/MM LV Fractional Shortening (2D) 21 % 27-45 LV EF (2D Teichholz) 42 % LV Diastolic Volume (4C MOD) 98 ml LV EF (4C MOD) 40 % LV Diastolic Volume (2C MOD) 102 ml LV EF (2C MOD) 46 % LV Diastolic Volume (BP MOD) 101 ml 46-106 LV Diastolic Volume Index (BP MOD) 46 ml/m2 29-61 LV Systolic Volume (BP MOD) 60 ml 14-42 LV Systolic Volume Index (BP MOD) 28 ml/m2 8-24 LV EF (BP MOD) 41 % 54-74 LV Diastolic Length (4C) 7.4 cm LV Systolic Length (4C) 6.1 cm LV Stroke Volume (4C MOD) 39 ml Atria Name Value Normal LA Dimensions LA Volume (4C A-L) 22 ml Left Ventricle Left ventricular chamber dimension is normal. Left ventricular systolic function is mildly reduced with an ejection fraction by Biplane Method of Discs of 41 %. There is normal geometry noted in the left ventricle. Left ventricular segmental wall motion is normal. There is indeterminate diastolic function in the left ventricle. Right Ventricle Right ventricular chamber dimension is normal. Right ventricular systolic function is normal. Left Atrium Left atrial chamber dimension is normal. Right Atrium Right atrial was not clearly visualized. Aortic Valve There is no aortic valve sclerosis. There is no aortic valve stenosis. There is no aortic valve regurgitation. The aortic valve was not well visualized. Pulmonic Valve The pulmonic valve is normal. There is no pulmonic valve stenosis. There is no pulmonic regurgitation. Mitral Valve The mitral valve has normal leaflets. There is no mitral valve stenosis. There is no mitral valve regurgitation. Tricuspid Valve The tricuspid valve leaflets are normal. There is no tricuspid valve stenosis. There is no tricuspid valve regurgitation. Unable to estimate pulmonary artery systolic pressure due to inadequate tricuspid regurgitant envelope. Pericardium/Pleural The pericardium appears normal. There is no pericardial effusion. No pleural effusion visualized. Aorta The aortic measurements are indexed to age and body surface area. Summary 1. Left ventricle size is normal and systolic function is mildly reduced. Estimated ejection fraction is 40-45%. There is indeterminate diastolic function. There is normal geometry noted. 2. Normal right ventricular size and function. Report Signatures Finalized by Michoacano Pretty on 08/19/2025 02:26 PM
--- NOTE | 2025-08-17 11:04 | PC.NURSE ---
Attempted med rec. Patient had several medications at bedside. All present medications are now confirmed in chart however pt has several medication listed with question johnson that were not in her bag. She does not recall any medications she takes and states her son Homer manages her medications for her. I called the number for Homer and was sent to [facility]. Left a message requesting a return call and provided the nurses station's number.
--- NOTE | 2025-08-17 12:35 | PC.SS ---
Patient Chica Naidu is a 64 Year old female admitted for Sepsis 2/2 UTI. SS met with patient at bedside to discuss discharge plan and verify demographic information. Patient reports she lives at home with her son, Homer Naidu who she reports is her surrogate decision maker, [phone]. Patient reports she utilizes a Rollator walker to assist with ambulation. Patient reports that prior to admission she was able to complete all ADL's independently. patient's PCP is Duglas Dunaway. At time of discharge the patient wishes to return back home. Patient's son will provide transportation. Discharge plan: Home Next of kin: Son, Homer Naidu
--- NOTE | 2025-08-17 13:53 | PD.RESPRO ---
Documentation for date of: 08/17/25 Subjective Subjective Interval history: Patient seen and assessed in hospital bed reporting persistent right ankle pain and lower back pain. Per history, patient apparently remembers going to the bathroom late at night yesterday when she developed sudden dizziness without room spinning, no palpitations or shortness of breath and her legs gave out. Patient did not hit her head and did not lose consciousness during this episode. Patient denies having any dysuria at this time but urine was positive for pyuria, bacteria and there are signs of sepsis with acute kidney injury. Will continue IV antibiotics and will order echo along with orthostatic vitals for syncope workup. Exam Vital Signs Temp Pulse Resp BP Pulse Ox O2 Del Method 98.9 F 112 H 20 169/85 H 94 L Room Air 08/17/25 12:00 08/17/25 12:00 08/17/25 12:00 08/17/25 12:00 08/17/25 12:00 08/17/25 12:00 Narrative Exam Physical Exam: GENERAL: Awake, answering questions appropriately HEENT: NC/AT. Moist mucosa. PERRLA/EOMI. CARDIO: Heart RRR, no obvious murmurs, no JVD. PULM: No coughing or visible SOB. Lungs CTA B/L. GI: Abdomen soft, NT/ND, +BS. SKIN/MSK/EXT: Right ankle grossly swollen with pain on palpation. Lower back tenderness diffusely. No wounds/discoloration/rashes/edema/amputations noted. +Pedal pulses present B/L. NEURO: Oriented x3, Moves extremities x4, no focal neurologic deficits noted. Objective Labs 08/18/25 05:00 08/18/25 05:00 Labs: Laboratory Results - last 24 hr 08/16/25 08/16/25 08/17/25 23:22 23:24 01:03 WBC 9.5 RBC 3.88 L Hgb 11.4 L Hct 33.6 L MCV 87 MCH 29.4 MCHC 33.9 RDW Std Deviation 36.2 L Plt Count 213 Neut % (Auto) 70 Lymph % (Auto) 21 [place] % (Auto) 6 Eos % (Auto) 3 Baso % (Auto) 0 Neut # (Auto) 6.6 Lymph # (Auto) 1.9 Loving # (Auto) 0.6 Eos # (Auto) 0.3 Baso # (Auto) 0.0 Immature Gran # (Auto) 0.04 H Absolute Nucleated RBC 0.00 Immature Gran % 0 Nucleated RBC % 0 Retic Count (auto) Absolute Retic Immature Retic Fraction Retic Hgb Content CHr Sodium 139 Potassium 3.6 Chloride 99 Carbon Dioxide 27.6 Anion Gap 12 BUN 22 Creatinine 1.3 Estim Creat Clear Calc 49.5 L eGFR 46 L BUN/Creatinine Ratio 17 Glucose 140 H Calculated Osmolality 282 Lactic Acid 3.8 H Calcium 10.3 Corrected Calcium 10.3 H Phosphorus Magnesium Iron TIBC Iron Saturation Unsat Iron Binding Ferritin Total Bilirubin 0.2 L AST 25 ALT 20 Alkaline Phosphatase 77 Troponin I 0.037 Total Protein 7.9 Albumin 4.6 Globulin 3.3 Albumin/Globulin Ratio 1.4 Ur Collection Type Voided Urine Color Yellow Urine Clarity Turbid A Urine pH 6.0 Ur Specific [place] 1.012 Urine Protein 2+ A Urine Glucose (UA) 2+ A Urine Ketones Negative Urine Blood 1+ A Urine Nitrite Negative Urine Bilirubin Negative Urine Urobilinogen (Auto) Negative Ur Leukocyte Esterase Positive Urine RBC 15 H Urine WBC 570 H Ur Squamous Epith Cells 0 Urine Bacteria 1+ A Hyaline Casts < 1 Urine Yeast (Budding) Present A Influenza A (Rapid) Negative Influenza B (Rapid) Negative RSV Rapid Negative 08/17/25 08/17/25 03:07 05:20 WBC 9.5 RBC 3.21 L Hgb 9.4 L D Hct 27.8 L MCV 87 MCH 29.3 MCHC 33.8 RDW Std Deviation 36.1 L Plt Count 177 D Neut % (Auto) 75 Lymph % (Auto) 17 [place] % (Auto) 7 Eos % (Auto) 1 Baso % (Auto) 0 Neut # (Auto) 7.2 Lymph # (Auto) 1.6 Loving # (Auto) 0.6 Eos # (Auto) 0.1 Baso # (Auto) 0.0 Immature Gran # (Auto) 0.03 H Absolute Nucleated RBC 0.00 Immature Gran % 0 Nucleated RBC % 0 Retic Count (auto) 1.7 H Absolute Retic 53.1 Immature Retic Fraction 13.7 Retic Hgb Content CHr 33.2 Sodium 138 Potassium 4.0 Chloride 101 Carbon Dioxide 26.1 Anion Gap 11 BUN 21 Creatinine 1.2 Estim Creat Clear Calc 53.7 L eGFR 51 L BUN/Creatinine Ratio 18 Glucose 230 H D Calculated Osmolality 285 Lactic Acid 1.9 Calcium 9.1 Corrected Calcium 9.3 Phosphorus 3.6 Magnesium 1.2 L Iron 22 L TIBC 264 Iron Saturation 8 L Unsat Iron Binding 242 Ferritin 61 Total Bilirubin 0.2 L AST 22 ALT 18 Alkaline Phosphatase 60 D Troponin I Total Protein 6.2 Albumin 3.7 D Globulin 2.5 Albumin/Globulin Ratio 1.5 Ur Collection Type Urine Color Urine Clarity Urine pH Ur Specific [place] Urine Protein Urine Glucose (UA) Urine Ketones Urine Blood Urine Nitrite Urine Bilirubin Urine Urobilinogen (Auto) Ur Leukocyte Esterase Urine RBC Urine WBC Ur Squamous Epith Cells Urine Bacteria Hyaline Casts Urine Yeast (Budding) Influenza A (Rapid) Influenza B (Rapid) RSV Rapid Quality Measures Quality Measures sepsis Current suspected stage: sepsis Possible source: genitourinary Blood cultures ordered: yes Antibiotic ordered: Yes Assessment & Plan Assessment Current Active Medications: Generic Name Dose Route Start Last Admin Trade Name Freq PRN Reason Stop Dose Admin Acetaminophen 650 mg 08/17/25 04:33 08/17/25 06:10 Acetaminophen 325 Mg Tablet PO 09/16/25 04:32 650 mg Q6H PRN Administration Fever >101.5 Dextrose 25 ml 08/17/25 04:42 Dextrose 50%-Water Inj 50 Ml Syringe IV 09/16/25 04:41 Q15MIN PRN BG 50-70 responsive npo pt Dextrose 50 ml 08/17/25 04:42 Dextrose 50%-Water Inj 50 Ml Syringe IV 09/16/25 04:41 Q15MIN PRN BG <50 OR BG <70 & pt unresponsive Enoxaparin Sodium 40 mg 08/17/25 09:00 08/17/25 10:11 Enoxaparin Sod Inj 40 Mg/0.4 Ml Syringe SC 08/31/25 08:59 40 mg QDAY RAYO Administration Gabapentin 600 mg 08/17/25 14:00 Gabapentin 300 Mg Capsule PO 09/16/25 13:59 TID RAYO Glucagon 1 mg 08/17/25 04:42 Glucagon Inj 1 Mg Vial IM Q15MIN PRN BG <70, and no IV access Ceftriaxone Sodium/Dextrose 1 gm in 50 mls @ 100 mls/hr 08/18/25 21:00 Rocephin/D5w 1gm Iv Premix IV 08/25/25 20:59 [facility] Insulin Degludec 10 unit 08/17/25 10:45 08/17/25 11:48 Insulin Degludec 5 Unit/0.05 Ml (Per 5 Units) SC 09/16/25 10:44 Not Given QDAY RAYO Insulin Human Lispro 0 unit 08/17/25 07:30 08/17/25 11:48 Insulin Lispro (Admelog) 1 Unit/0.01 Ml Unit SC 09/16/25 07:29 Not Given ACHS RAYO Protocol Lisinopril 20 mg 08/17/25 09:00 08/17/25 10:11 Lisinopril 20 Mg Tablet PO 09/16/25 08:59 20 mg QDAY RAYO Administration Magnesium Hydroxide 30 ml 08/17/25 04:38 Milk Of Magnesia Susp 30 Ml Udc PO 09/16/25 04:37 QDAY PRN CONSTIPATION Protocol Memantine 5 mg 08/17/25 09:00 08/17/25 10:11 Memantine Hcl 5 Mg Tablet PO 09/16/25 08:59 5 mg BID RAYO Administration Nortriptyline HCl 25 mg 08/17/25 09:00 08/17/25 13:52 Nortriptyline Hcl 25 Mg Capsule PO 09/16/25 08:59 Not Given QDAY RAYO Ondansetron HCl 4 mg 08/17/25 04:38 Ondansetron Inj 2 Mg/Ml Inj 2 Ml IVP 09/16/25 04:37 Q6H PRN NAUSEA OR VOMITING Protocol Quetiapine Fumarate 200 mg 08/17/25 09:00 08/17/25 10:11 Quetiapine Fumarate 100 Mg Tablet PO 09/16/25 08:59 200 mg BID RAYO Administration Plan 64-year-old female with past medical history of Ischemic CVA involving the right cerebellum, vascular dementia, diabetes mellitus type 2 and chronic low back pain presented to the ED after she had a fall today. #Urinary tract infection #Sepsis secondary to UTI Initial vitals pulse rate 126, respiratory 26, temperature 102.4?sepsis according to SIRS criteria. Denies any symptoms of UTI Urine is looking very cloudy, urine WBC 570, urinary leukocyte esterase positive Given ceftriaxone 1 g in the ED. End organ dysfunction noted with ANASTASIA; baseline Creatinine of 0.9 -> presented with Cr 1.3 Plan: Continue on IV ceftriaxone 1 g daily Follow-up with blood and urine cultures. #Presyncope #Fall Denies any palpitation dizziness or loss of consciousness Ordered CT head and CT is negative for any mass or hemorrhage or any midline shift Plan: Orthostatic vital Echo ordered #Hypertensive urgency #Hypertension Denies any symptoms of headache, blurriness of vision, chest pain. Her initial blood pressure when she arrived is 156/72 but around 1:30 AM her blood pressure rise to 200/97. IV labetalol 20 mg given when her blood pressure is over 200/97. Initial blood pressure goal is 25 to 30% reduction. Plan: Restarted home Lisinopril at half dose Continue to monitor. #Ankle sprain Complains of right ankle swelling and twisting X-ray foot negative for fracture Plan: Pain control #Insulin-dependent type 2 diabetes Takes glargine and Humulin at her home. Plan: Started on Degludec 10u qday Starting on sliding scale Continue to monitor #Vascular Dementia #Psychiatric Conditions On home medications memantine, donepezil, quetiapine, nortriptyline Plan: Restarted some of them, will hold off on donepezil as there is interaction with other medications Health Maintenance: Lines: PIV Diet: Carb consistent low Bowel: Senna GI prophylaxis: Not needed DVT prophylaxis: Lovenox Dispo: IV antibiotics for UTI, echo for syncope workup Code: Full Patient seen and assessed with attending Dr. Luis Daniel Kern, PGY-2 Internal Medicine - GME Attending Provider Attestation/Addendum I have examined the patient, reviewed labs and imaging findings, discussed the case with the resident(s), and reviewed entered orders. I agree with the plan of care as outlined in this note, with these additional summaries/recommendations: Patient seen at bedside. Patient admitted overnight for sepsis secondary to urinary tract infection. Evidence of endorgan damage with ANASTASIA with creatinine 1.3 on admission. Blood and urine cultures taken, follow-up results when available. Continue IV antibiotic. Patient had ground-level fall pending physical therapy although suspect she may have had syncopal episode and we will order syncopal workup. As needed IV antihypertensives. Patient has uncontrolled diabetes mellitus type 2 with A1c 10.8%. Continue basal bolus insulin and target blood sugar of 140-180 while hospitalized. Resume home Seroquel and awaiting further medication reconciliation. Patient updated on the plan and agreement. All questions answered to satisfaction. Please see residents note for additional details of management. Dr. Luis Daniel MD
[2025-08-17] MEDS: GABAPENTIN 300 MG CAPSULE 600 MG PO ×2 (14:11→21:14)
--- NOTE | 2025-08-17 16:10 | PC.NURSE ---
Dr Kern made aware of vitals
--- NOTE | 2025-08-17 16:47 | PC.NURSE ---
CN notified of transfer orders and PRN IV labetalol
--- NOTE | 2025-08-17 17:05 | PC.NURSE ---
Received a call from lab, the ordered cocci was refused by pt. per pt, she does not want to be poked more than one time a day. Lab will be drawn with tomorrow's morning meds
[2025-08-18] VITALS (12 sets, daily range): BP systolic 126–173; BP diastolic 88–98; PULSE 57–122; RESP 16–99; TEMP 36.2–37.2; O2SAT 91–96; BMI 13.0
[2025-08-18] MEDS: GABAPENTIN 300 MG CAPSULE 600 MG PO ×3 (05:36→21:43)
[2025-08-18 06:24] LABS: Basophils # (Auto) 0.0 Thou/mm3 (0.0-0.2); Basophils % (Auto) 1 % (0-2.5); Eosinophils # (Auto) 0.1 Thou/mm3 (0.0-0.5); Eosinophils % (Auto) 1 % (0-10); Hematocrit 32.9 % (36.0-46.0); Hemoglobin 11.0 g/dL (12.0-16.0); Immature Granulocytes Auto 0.07 Thou/mm3 (0.00-0.00); Lymphocytes # (Auto) 1.5 Thou/mm3 (1.0-4.8); Lymphocytes % (Auto) 19 % (10-50); Mean Corpuscular HGB Conc 33.4 g/dl (31.0-37.0); Mean Corpuscular Hemoglobin 29.9 pg (25.0-35.0); Mean Corpuscular Volume 89 fL (80-100); Monocytes # (Auto) 0.8 Thou/mm3 (0.0-0.8); Monocytes % (Auto) 10 % (0-12); Neutrophils # (Auto) 5.3 Thou/mm3 (1.8-7.7); Neutrophils % (Auto) 69 % (37-80); Nucleated Red Blood Cell # 0.00 Thou/mm3 (0.00-0.00); Nucleated Red Blood Cell % 0 /100 WBC (0); Platelet Count 184 Thou/mm3 (140-440); RDW Standard Deviation 37.7 fL (36.4-46.3); Red Blood Count 3.68 Miln/mm3 (4.00-5.20); White Blood Count 7.8 Thou/mm3 (3.6-11.0)
[2025-08-18 06:44] LABS: Glucose Estimated Average 237 mg/dL (80-131); Hemoglobin A1C 9.9 % Hgb (4.8-6.0)
[2025-08-18 07:00] LABS: Alanine Aminotransferase 21 U/L (10-49); Alkaline Phosphatase 65 U/L (46-116); Anion Gap 11 (7-16); Aspartate Amino Transferase 30 U/L (0-34); BUN/Creatinine Ratio 14 Ratio (12-20); Bilirubin,Total 0.3 mg/dL (0.3-1.2); Blood Urea Nitrogen 17 mg/dL (9-23); Calcium 9.3 mg/dL (8.3-10.6); Carbon Dioxide 24.8 mMol/L (20.0-31.0); Chloride 99 mMol/L (98-107); Creatinine (Component) 1.2 mg/dL (0.6-1.3); Estimated Creatinine Clearance 56.6 mL/min (>60); Glucose 359 mg/dL (74-106); Osmolality,Calculated 285 (275-295); Potassium 4.1 mMol/L (3.4-5.1); Sodium 135 mMol/L (136-145); Total Protein 6.9 gm/dL (5.7-8.2); eGFR 51 See Note
[2025-08-18 07:05] LABS: Albumin, Serum 4.3 gm/dL (3.4-4.8); Albumin/Globulin Ratio 1.7 (1.2-2.2); Calcium (Corrected) 9.3 mg/dL (8.5-10.1); Globulin 2.6 gm/dL (2.3-3.5)
[2025-08-18] MEDS: INSULIN LISPRO (AdmeLOG) 1 UNIT/0.01 ML UNIT SC ×4 (07:25→21:54)
[2025-08-18] MEDS: ENOXAPARIN SOD INJ 40 MG/0.4 ML SYRINGE SC (08:08)
[2025-08-18] MEDS: INSULIN DEGLUDEC 5 UNIT/0.05 ML (PER 5 UNITS) 10 UNIT SC (08:08)
[2025-08-18] MEDS: NORTRIPTYLINE HCL 25 MG CAPSULE PO (08:09)
[2025-08-18] MEDS: MEMANTINE HCL 5 MG TABLET PO ×2 (08:09→21:44)
[2025-08-18] MEDS: INSULIN DEGLUDEC 5 UNIT/0.05 ML (PER 5 UNITS) 30 UNIT SC (11:28)
[2025-08-18] MEDS: cefTRIAXone/D5w 2gm 2 GM/50 ML BAG IV (12:06)
--- NOTE | 2025-08-18 13:51 | PC.SS ---
SS update: FRONT DESK MANAGER was notified by ROSA Alejandra that esperanza hu need SNF placement. FRONT DESK MANAGER met with patient at bedside to discuss SNF placement, patient is agreeable to SNF and stated she does not have a prefernce.
[2025-08-18 16:34] LABS: Cocci Serology, IgM Negative (Negative)
--- NOTE | 2025-08-18 16:51 | ESPR_ITS ---
<Statement entered by Min Schuler MD - 08/18/25 18:00> Patient was seen and examined at bedside. I agree on the assessment and plan on this note as documented by resident Shivam Davalos DO PGY1. 64-year-old female with past medical history of ischemic CVA involving right cerebellum, vascular dementia, type 2 diabetes mellitus and chronic low back pain ad syncope mitted to [facility] for management and workup for presyncope and urinary tract infection. Patient blood culture 1/2 positive for GNR, increase ceftriaxone to 2 g daily, adjusted sliding scale insulin and degludec to maintain blood glucose levels within the range 140-200, will continue to monitor blood pressure will consider adding beta-steff to optimize blood pressure control in a.m., started on tramadol for pain management. Continue all other home medication for chronic pain management. Case discussed with attending Dr. Miguel Schuler MD PGY-2 Documentation for date of: 08/18/25 Subjective Subjective Interval history: Patient seen and assessed in hospital bed reporting persistent right ankle pain and lower back pain. Rt ankle continues to be swollen, red, and painful, and there is reported restriction in AROM, after fall two nights before. The ordered cocci was refused by pt, she did not want to be poked more than one time a day. Labs were drawn with morning blood draw. BP was elevated overnight, and given amlodipine 5mg x1. Patient received 13u of lispro, and 10u degludec yesterday, and glc this mornignwas elevated at 359. Given an additional dose of 30u degludec, and scheduled to receive 40u daily. Pt denies lightheadedness, dizzines, SOB, or palpitations, and although urine was positive for pyuria, and bacteria, she denies dysuria. Exam Vital Signs Temp Pulse Resp BP Pulse Ox O2 Del Method 97.6 F 57 L 20 151/88 H 93 L Room Air 08/18/25 11:57 08/18/25 16:33 08/18/25 16:33 08/18/25 11:57 08/18/25 11:57 08/18/25 11:57 Narrative Exam Physical Exam: GENERAL: Awake, answering questions appropriately HEENT: NC/AT. Moist mucosa. PERRLA/EOMI. CARDIO: Heart RRR, no obvious murmurs, no JVD. PULM: No coughing or visible SOB. Lungs CTA B/L. GI: Abdomen soft, NT/ND, +BS. SKIN/MSK/EXT: Right ankle grossly swollen with pain on palpation. Lower back tenderness diffusely. No wounds/discoloration/rashes/edema/amputations noted. +Pedal pulses present B/L. NEURO: Oriented x3, Moves extremities x4, no focal neurologic deficits noted. Objective Labs 08/19/25 05:07 08/19/25 05:07 Labs: Laboratory Results - last 24 hr 08/18/25 05:00 WBC 7.8 RBC 3.68 L Hgb 11.0 L Hct 32.9 L MCV 89 MCH 29.9 MCHC 33.4 RDW Std Deviation 37.7 Plt Count 184 Neut % (Auto) 69 Lymph % (Auto) 19 [place] % (Auto) 10 Eos % (Auto) 1 Baso % (Auto) 1 Neut # (Auto) 5.3 Lymph # (Auto) 1.5 [place] # (Auto) 0.8 Eos # (Auto) 0.1 Baso # (Auto) 0.0 Immature Gran # (Auto) 0.07 H Absolute Nucleated RBC 0.00 Immature Gran % 1 H Nucleated RBC % 0 Sodium 135 L Potassium 4.1 Chloride 99 Carbon Dioxide 24.8 Anion Gap 11 BUN 17 Creatinine 1.2 Estim Creat Clear Calc 56.6 L eGFR 51 L BUN/Creatinine Ratio 14 [address]ucose [address] Glu mg/dL 237 H Hemoglobin A1c 9.9 H Calculated Osmolality 285 Calcium 9.3 Corrected Calcium 9.3 Total Bilirubin 0.3 AST 30 ALT 21 Alkaline Phosphatase 65 Total Protein 6.9 Albumin 4.3 D Globulin 2.6 Albumin/Globulin Ratio 1.7 Coccidioides IgM Ab Negative Quality Measures Quality Measures sepsis Current suspected stage: ruled out Possible source: genitourinary Blood cultures ordered: yes Antibiotic ordered: Yes Assessment & Plan Assessment Current Active Medications: Generic Name Dose Route Start Last Admin Trade Name Freq PRN Reason Stop Dose Admin Acetaminophen 650 mg 08/17/25 04:33 08/17/25 06:10 Acetaminophen 325 Mg Tablet PO 09/16/25 04:32 650 mg Q6H PRN Administration Fever >101.5 Dextrose 25 ml 08/17/25 04:42 Dextrose 50%-Water Inj 50 Ml Syringe IV 09/16/25 04:41 Q15MIN PRN BG 50-70 responsive npo pt Dextrose 50 ml 08/17/25 04:42 Dextrose 50%-Water Inj 50 Ml Syringe IV 09/16/25 04:41 Q15MIN PRN BG <50 OR BG <70 & pt unresponsive Diclofenac Sodium 4 gm 08/18/25 11:21 Diclofenac 1% Top Gel 100 Gm Tube TOP 09/17/25 13:59 TID PRN Ankle Pain Protocol Enoxaparin Sodium 40 mg 08/17/25 09:00 08/18/25 08:08 Enoxaparin Sod Inj 40 Mg/0.4 Ml Syringe SC 08/31/25 08:59 40 mg QDAY RAYO Administration Gabapentin 600 mg 08/17/25 14:00 08/18/25 14:30 Gabapentin 300 Mg Capsule PO 09/16/25 13:59 600 mg TID RAYO Administration Glucagon 1 mg 08/17/25 04:42 Glucagon Inj 1 Mg Vial IM Q15MIN PRN BG <70, and no IV access Ceftriaxone Sodium/Dextrose 2 gm in 50 mls @ 100 mls/hr 08/18/25 11:04 08/18/25 12:06 Rocephin/D5w 2gm IV 08/25/25 11:03 100 mls/hr QDAY RAYO Administration Insulin Degludec 40 unit 08/19/25 09:00 Insulin Degludec 5 Unit/0.05 Ml (Per 5 Units) SC 09/18/25 08:59 QDAY RAYO Insulin Human Lispro 0 unit 08/18/25 12:42 Insulin Lispro (Admelog) 1 Unit/0.01 Ml Unit SC 09/16/25 07:29 [facility]S [facility] Protocol Labetalol HCl 10 mg 08/17/25 16:27 Labetalol Inj 5 Mg/Ml Vial 20 Ml IVP 09/16/25 17:59 Q2HR PRN BP >180/105 and HR >70 Lisinopril 40 mg 08/18/25 09:00 08/18/25 08:09 Lisinopril 20 Mg Tablet PO 09/17/25 08:59 40 mg QDAY RAYO Administration Magnesium Hydroxide 30 ml 08/17/25 04:38 Milk Of Magnesia Susp 30 Ml Udc PO 09/16/25 04:37 QDAY PRN CONSTIPATION Protocol Memantine 5 mg 08/17/25 09:00 08/18/25 08:09 Memantine Hcl 5 Mg Tablet PO 09/16/25 08:59 5 mg BID RYAO Administration Nortriptyline HCl 25 mg 08/17/25 09:00 08/18/25 08:09 Nortriptyline Hcl 25 Mg Capsule PO 09/16/25 08:59 25 mg QDAY RAYO Administration Ondansetron HCl 4 mg 08/17/25 04:38 Ondansetron Inj 2 Mg/Ml Inj 2 Ml IVP 09/16/25 04:37 Q6H PRN NAUSEA OR VOMITING Protocol Quetiapine Fumarate 200 mg 08/17/25 09:00 08/18/25 08:09 Quetiapine Fumarate 100 Mg Tablet PO 09/16/25 08:59 200 mg BID RAYO Administration Tramadol HCl 50 mg 08/18/25 11:24 Tramadol Hcl 50 Mg Tablet PO 08/23/25 11:23 Q6HR PRN PAIN SCALE 4-10(Mod-Sev Plan 64-year-old female with past medical history of Ischemic CVA involving the right cerebellum, vascular dementia, diabetes mellitus type 2 and chronic low back pain presented to the ED after she had a fall today. #Urinary tract infection #Sepsis secondary to UTI, improving Initial vitals pulse rate 126, respiratory 26, temperature 102.4?sepsis according to SIRS criteria. Denies any symptoms of UTI Urine is looking very cloudy, urine WBC 570, urinary leukocyte esterase positive Given ceftriaxone 1 g in the ED. End organ dysfunction noted with ANASTASIA; baseline Creatinine of 0.9 -> presented with Cr 1.3 BCtx was positive for GNR in 1 of 2 bottles after 24h. Plan: Increased IV ceftriaxone 2g daily Pending blood and urine cultures. #Presyncope #Fall Denies any palpitation dizziness or loss of consciousness Ordered CT head and CT is negative for any mass or hemorrhage or any midline shift On 04/15, patient dropped BP from 120/62 to 92/60, lying to sitting. Plan: Recommended pt to avoid standing for long periods; sit or lie down when symptoms occur; slow down movements when standing up; exercise regularly, and stay hydrated. Wear compression stockings as soon as swelling in her ankle resolves. Echo ordered #Hypertensive urgency #Hypertension Denies any symptoms of headache, blurriness of vision, chest pain. Her initial blood pressure when she arrived is 156/72 but around 1:30 AM her blood pressure rise to 200/97. IV labetalol 20 mg given when her blood pressure is over 200/97. Initial blood pressure goal is 25 to 30% reduction. Plan: -lisinopril 40mg daily -labetalol IV 10mg Q2h PRN SBP >180 or DBP >105 Continue to monitor. #Ankle sprain Complains of right ankle swelling and twisting X-ray foot negative for fracture Plan: Tramadol PO 50mg Q6h PRN pain scale 4-10 #Insulin-dependent type 2 diabetes Takes glargine and Humulin at her home. goal range for AM glc 140-200 Plan: Started on Degludec 40u qday Starting on sliding scale -step 3 Continue to monitor #Vascular Dementia #Psychiatric Conditions On home medications memantine, donepezil, quetiapine, nortriptyline Plan: Restarted some of them, will hold off on donepezil as there is interaction with other medications Health Maintenance: Lines: PIV Diet: Carb consistent low Bowel: Senna GI prophylaxis: Not needed DVT prophylaxis: Lovenox Dispo: IV antibiotics for UTI, echo for syncope workup Code: Full This case was discussed with my attending physician, Dr. Cary, and senior resident, Dr Schuler. Shivam Davalos, DO PGY I Attending Provider Attestation/Addendum I have examined the patient, reviewed labs and imaging findings, discussed the case with the resident(s), and reviewed entered orders. I agree with the plan of care as outlined in this note, with these additional summaries/recommendations: Patient seen at bedside. No acute overnight events. Patient has underlying dementia and appears to be a poor historian at times. Continue IV antibiotic for urinary tract infection. Urine culture pending. Blood cultures preliminarily showing 1 out of 2 bottles growing GNR and we will await final speciation. Patient was seen by physical therapy who recommends SNF placement. Patient had a ground-level fall and endorsing right ankle swelling and pain. Most likely sprained ankle. No evidence of fracture on imaging. Pain management and outpatient follow-up with orthopedics if not improved. Patient has uncontrolled diabetes mellitus type 2 with A1c 10.8%. Continue basal bolus insulin and target blood sugar of 140-180 while hospitalized. Resume home Seroquel and awaiting further medication reconciliation. Patient updated on the plan and agreement. All questions answered to satisfaction. Please see residents note for additional details of management. Dr. Luis Daniel MD
[2025-08-19] VITALS (11 sets, daily range): BP systolic 94–187; BP diastolic 53–98; PULSE 53–107; RESP 17–96; TEMP 36.1–36.3; O2SAT 94–98
[2025-08-19] MEDS: ONDANSETRON INJ 2 MG/ML INJ 2 ML 4 MG IVP (02:35)
--- NOTE | 2025-08-19 03:58 | XR_ITS ---
Examination: Abdomen AP single view Technique: AP portable supine abdomen, single view Exam date and time: August 19, 2025, 0502 hours INDICATIONS: Abdominal pain and constipation beginning 5 days ago FINDINGS: Air distended stomach Moderate stool throughout the colon. Prominent osteopenia. Moderate right and mild left hip osteoarthritis. No free air IMPRESSION: Moderately air distended stomach
[2025-08-19] MEDS: LABETALOL INJ 5 MG/ML VIAL 20 ML 10 MG IVP (04:00)
--- NOTE | 2025-08-19 04:44 | XR_ITS ---
EXAMINATION: AP chest single view TECHNIQUE: AP portable upright chest single view Date and time: August 19, 2025, 0634 hours INDICATIONS: Post orogastric tube placement FINDINGS: Orogastric tube in the stomach sidehole beyond the GE junction The stomach incidentally is still air distended Mild enlargement left ventricle Moderate vascular congestion IMPRESSION: Orogastric tube in the stomach satisfactory position
[2025-08-19] MEDS: INSULIN LISPRO (AdmeLOG) 1 UNIT/0.01 ML UNIT SC ×3 (05:35→18:04)
[2025-08-19 05:55] LABS: Basophils # (Auto) 0.0 Thou/mm3 (0.0-0.2); Basophils % (Auto) 1 % (0-2.5); Eosinophils # (Auto) 0.1 Thou/mm3 (0.0-0.5); Eosinophils % (Auto) 1 % (0-10); Hematocrit 34.7 % (36.0-46.0); Hemoglobin 11.8 g/dL (12.0-16.0); Immature Granulocytes Auto 0.04 Thou/mm3 (0.00-0.00); Lymphocytes # (Auto) 1.7 Thou/mm3 (1.0-4.8); Lymphocytes % (Auto) 22 % (10-50); Mean Corpuscular HGB Conc 34.0 g/dl (31.0-37.0); Mean Corpuscular Hemoglobin 29.4 pg (25.0-35.0); Mean Corpuscular Volume 87 fL (80-100); Monocytes # (Auto) 0.6 Thou/mm3 (0.0-0.8); Monocytes % (Auto) 8 % (0-12); Neutrophils # (Auto) 5.5 Thou/mm3 (1.8-7.7); Neutrophils % (Auto) 69 % (37-80); Nucleated Red Blood Cell # 0.00 Thou/mm3 (0.00-0.00); Nucleated Red Blood Cell % 0 /100 WBC (0); Platelet Count 209 Thou/mm3 (140-440); RDW Standard Deviation 36.7 fL (36.4-46.3); Red Blood Count 4.01 Miln/mm3 (4.00-5.20); White Blood Count 8.0 Thou/mm3 (3.6-11.0)
[2025-08-19 06:21] LABS: Alanine Aminotransferase 22 U/L (10-49); Albumin, Serum 4.4 gm/dL (3.4-4.8); Albumin/Globulin Ratio 1.5 (1.2-2.2); Alkaline Phosphatase 63 U/L (46-116); Anion Gap 11 (7-16); Aspartate Amino Transferase 29 U/L (0-34); BUN/Creatinine Ratio 18 Ratio (12-20); Bilirubin,Total 0.2 mg/dL (0.3-1.2); Blood Urea Nitrogen 25 mg/dL (9-23); Calcium 9.4 mg/dL (8.3-10.6); Calcium (Corrected) 9.4 mg/dL (8.5-10.1); Carbon Dioxide 30.6 mMol/L (20.0-31.0); Chloride 94 mMol/L (98-107); Creatinine (Component) 1.4 mg/dL (0.6-1.3); Estimated Creatinine Clearance 48.5 mL/min (>60); Globulin 3.0 gm/dL (2.3-3.5); Magnesium 2.0 mg/dL (1.6-2.6); Osmolality,Calculated 293 (275-295); Phosphorous 4.8 mg/dL (2.4-5.1); Potassium 3.9 mMol/L (3.4-5.1); Sodium 136 mMol/L (136-145); Total Protein 7.4 gm/dL (5.7-8.2); eGFR 42 See Note
[2025-08-19 06:28] LABS: Glucose 410 mg/dL (74-106)
[2025-08-19] MEDS: ENOXAPARIN SOD INJ 40 MG/0.4 ML SYRINGE SC (08:26)
[2025-08-19] MEDS: RINGERS LACTATED 1000 ML 1,000 ML 75 ML IV ×2 (08:26→23:50)
[2025-08-19] MEDS: cefTRIAXone/D5w 2gm 2 GM/50 ML BAG IV (08:26)
[2025-08-19] MEDS: INSULIN LISPRO (AdmeLOG) 1 UNIT/0.01 ML UNIT 6 UNIT SC ×3 (08:27→18:04)
[2025-08-19] MEDS: INSULIN DEGLUDEC 5 UNIT/0.05 ML (PER 5 UNITS) 40 UNIT SC (08:28)
[2025-08-19] MEDS: NORTRIPTYLINE HCL 25 MG CAPSULE PO (08:28)
[2025-08-19] MEDS: MEMANTINE HCL 5 MG TABLET PO ×2 (08:29→21:17)
[2025-08-19] MEDS: GABAPENTIN 300 MG CAPSULE 600 MG PO ×3 (08:29→21:17)
--- NOTE | 2025-08-19 08:33 | PC.SS ---
CASCARA BARK CUTTER spoke to patients son Homer and informed him that PT recommended SNF, patients son is agreeable to SNF and requested [facility] as it is closer to home. CASCARA BARK CUTTER submitted SNF referral and PASSR level 1 via [employer].
--- NOTE | 2025-08-19 12:15 | XR_ITS ---
Examination: CT abdomen and pelvis without contrast. Coronal 3-D reconstructions. Sagittal 2-D reconstructions. Date and time of exam: August 19, 2025 1720 hours INDICATIONS: Sepsis alert urinary tract infections CTDI: vol (mGy): 13.9 DLP: (mGycm): 772 Technique: Axial images of the abdomen have been obtained, 3 mm slice thickness Intravenous contrast material has not been administered. Low dose protocols were performed. One or more of the following dose reduction techniques were used; automated exposure control, adjustment of the mA and/or KV according to patient size, use of iterative reconstruction technique. Findings: Mild enlargement cardiac contour No visualized liver splenic lesion, hepatomegaly 22 cm Gallstones Perinephric stranding No renal or ureteral calculi No hydronephrosis Moderate stool throughout the colon Normal appendix No bowel obstruction Atrophic uterus Air in the urinary bladder Bilateral fat-containing common femoral hernias Prominent osteopenia with chronic compression L4 IMPRESSION: Perinephric stranding, consider urinary tract infection Mild to moderate bilateral renal parenchymal scar formation, no hydronephrosis or ureteral calculi Normal appendix Negative for cystitis
--- NOTE | 2025-08-19 19:33 | ESPR_ITS ---
<Statement entered by Min Schuler MD - 08/20/25 06:08> Patient was seen and examined at bedside. I agree on the assessment and plan on this note as documented by resident Shivam Davalos DO PGY1. 64-year-old female with past medical history of insulin-dependent diabetes mellitus, uncontrolled, hypertension, ischemic CVA, vascular dementia and chronic lower back pain admitted for urinary tract infection, presyncope and uncontrolled diabetes mellitus. Overnight patient had abdominal distention multiple episodes of vomiting, NG tube placed by overnight team, KUB showed significant gastric distention, significant amount suctioned out. This morning we will obtain a CT abdomen pelvis and discontinue NG tube after SBO is ruled out, started on IV maintenance fluids as mild ANASTASIA noted, patient's insulin regimen was adjusted to optimize blood glucose control. Patient's underlying symptoms likely secondary to gastroparesis hence will consider resuming small frequent meals with carb consistent low diet once CT abdomen pelvis has resulted. Pending speciation on the blood cultures, will continue to follow. Case discussed with attending Dr. Miguel Schuler MD PGY-2 Documentation for date of: 08/19/25 Subjective Subjective Interval history: Patient seen and assessed in hospital bed, who reports improvement in right ankle pain and swelling from yesterday. She states that she has been doing exercises of the right ankle, which have increased her active range of motion. Overnight, patient was nauseous and vomited, primary team was notified. There was marked abdominal distention, and tenderness to palpation. NG tube was placed with immediate removal of 800 mL liter. KUB ordered which showed markedly enlarged stomach. In the morning, at the time of this interview, patient no longer complains of abdominal discomfort. Abdomen is soft to palpation, but bowel sounds are diminished bilaterally. Patient reports last bowel movement to have been 5 to 6 days ago, but reports ability to pass gas. Pt denies lightheadedness, dizzines, SOB, or palpitations, and although urine was positive for pyuria, and bacteria, she denies dysuria. Patient n.p.o., scheduled insulin 6 units every 6 hours before sliding scale 3. CBC: Hgb 11.8 and trending up, WBC 8, CMP CL 94, BUN 25, CR 1.4 (1.2-1.3), glucose 410 Blood culture grew anaerobic GNR in 1 out of 2 bottles after 48H, pending urine culture and echo. Exam Vital Signs Temp Pulse Resp BP Pulse Ox O2 Del Method 97.4 F 91 18 94/53 L 95 Room Air 08/19/25 16:00 08/19/25 16:00 08/19/25 16:00 08/19/25 16:00 08/19/25 16:00 08/19/25 16:00 Narrative Exam Physical Exam: GENERAL: Awake, answering questions appropriately HEENT: NC/AT. Moist mucosa. PERRLA/EOMI. CARDIO: Heart RRR, no obvious murmurs, no JVD. PULM: No coughing or visible SOB. Lungs CTA B/L. GI: Abdomen soft, NT/ND, +BS present but diminished. SKIN/MSK/EXT: Right ankle grossly swollen with pain on palpation. Lower back tenderness diffusely. No wounds/discoloration/rashes/edema/amputations noted. +Pedal pulses present B/L. NEURO: Oriented x3, Moves extremities x4, no focal neurologic deficits noted. Objective Labs 08/19/25 05:07 08/19/25 05:07 Labs: Laboratory Results - last 24 hr 08/19/25 05:07 WBC 8.0 RBC 4.01 Hgb 11.8 L Hct 34.7 L MCV 87 MCH 29.4 MCHC 34.0 RDW Std Deviation 36.7 Plt Count 209 Neut % (Auto) 69 Lymph % (Auto) 22 [place] % (Auto) 8 Eos % (Auto) 1 Baso % (Auto) 1 Neut # (Auto) 5.5 Lymph # (Auto) 1.7 [place] # (Auto) 0.6 Eos # (Auto) 0.1 Baso # (Auto) 0.0 Immature Gran # (Auto) 0.04 H Absolute Nucleated RBC 0.00 Immature Gran % 1 H Nucleated RBC % 0 Sodium 136 Potassium 3.9 Chloride 94 L Carbon Dioxide 30.6 Anion Gap 11 BUN 25 H Creatinine 1.4 H Estim Creat Clear Calc 48.5 L eGFR 42 L BUN/Creatinine Ratio 18 Glucose 410 H* D Calculated Osmolality 293 Calcium 9.4 Corrected Calcium 9.4 Phosphorus 4.8 Magnesium 2.0 Total Bilirubin 0.2 L AST 29 ALT 22 Alkaline Phosphatase 63 Total Protein 7.4 Albumin 4.4 Globulin 3.0 Albumin/Globulin Ratio 1.5 Quality Measures Quality Measures sepsis Current suspected stage: ruled out Possible source: genitourinary Blood cultures ordered: yes Antibiotic ordered: Yes Assessment & Plan Assessment Current Active Medications: Generic Name Dose Route Start Last Admin Trade Name Freq PRN Reason Stop Dose Admin Acetaminophen 650 mg 08/17/25 04:33 08/17/25 06:10 Acetaminophen 325 Mg Tablet PO 09/16/25 04:32 650 mg Q6H PRN Administration Fever >101.5 Dextrose 25 ml 08/17/25 04:42 Dextrose 50%-Water Inj 50 Ml Syringe IV 09/16/25 04:41 Q15MIN PRN BG 50-70 responsive npo pt Dextrose 50 ml 08/17/25 04:42 Dextrose 50%-Water Inj 50 Ml Syringe IV 09/16/25 04:41 Q15MIN PRN BG <50 OR BG <70 & pt unresponsive Diclofenac Sodium 4 gm 08/18/25 11:21 Diclofenac 1% Top Gel 100 Gm Tube TOP 09/17/25 13:59 TID PRN Ankle Pain Protocol Enoxaparin Sodium 40 mg 08/17/25 09:00 08/19/25 08:26 Enoxaparin Sod Inj 40 Mg/0.4 Ml Syringe SC 08/31/25 08:59 40 mg QDAY RAYO Administration Gabapentin 600 mg 08/17/25 14:00 08/19/25 14:52 Gabapentin 300 Mg Capsule PO 09/16/25 13:59 600 mg TID RAYO Administration Glucagon 1 mg 08/17/25 04:42 Glucagon Inj 1 Mg Vial IM Q15MIN PRN BG <70, and no IV access Ceftriaxone Sodium/Dextrose 2 gm in 50 mls @ 100 mls/hr 08/18/25 11:04 08/19/25 08:26 Rocephin/D5w 2gm IV 08/25/25 11:03 100 mls/hr QDAY RAYO Administration Lactated Ringer's 1,000 mls @ 75 mls/hr 08/19/25 08:03 08/19/25 08:26 Lactated Ringers IV 08/20/25 08:02 75 mls/hr .[id number] RAYO Administration Insulin Degludec 40 unit 08/19/25 09:00 08/19/25 08:28 Insulin Degludec 5 Unit/0.05 Ml (Per 5 Units) SC 09/18/25 08:59 40 unit QDAY RAYO Administration Insulin Human Lispro 0 unit 08/19/25 06:00 08/19/25 18:04 Insulin Lispro (Admelog) 1 Unit/0.01 Ml Unit SC 09/18/25 05:59 4 unit Q6HR RAYO Administration Protocol Insulin Human Lispro 6 unit 08/19/25 07:45 08/19/25 18:04 Insulin Lispro (Admelog) 1 Unit/0.01 Ml Unit SC 09/18/25 07:44 6 unit Q6HR RAYO Administration Labetalol HCl 10 mg 08/17/25 16:27 08/19/25 04:00 Labetalol Inj 5 Mg/Ml Vial 20 Ml IVP 09/16/25 17:59 10 mg Q2HR PRN Administration BP >180/105 and HR >70 Lisinopril 40 mg 08/18/25 09:00 08/19/25 08:28 Lisinopril 20 Mg Tablet PO 09/17/25 08:59 40 mg QDAY RAYO Administration Magnesium Hydroxide 30 ml 08/17/25 04:38 Milk Of Magnesia Susp 30 Ml Udc PO 09/16/25 04:37 QDAY PRN CONSTIPATION Protocol Memantine 5 mg 08/17/25 09:00 08/19/25 08:29 Memantine Hcl 5 Mg Tablet PO 09/16/25 08:59 5 mg BID RAYO Administration Nortriptyline HCl 25 mg 08/17/25 09:00 08/19/25 08:28 Nortriptyline Hcl 25 Mg Capsule PO 09/16/25 08:59 25 mg QDAY RAYO Administration Ondansetron HCl 4 mg 08/17/25 04:38 08/19/25 02:35 Ondansetron Inj 2 Mg/Ml Inj 2 Ml IVP 09/16/25 04:37 4 mg Q6H PRN Administration NAUSEA OR VOMITING Protocol Quetiapine Fumarate 200 mg 08/17/25 09:00 08/19/25 08:28 Quetiapine Fumarate 100 Mg Tablet PO 09/16/25 08:59 200 mg BID RAYO Administration Tramadol HCl 50 mg 08/18/25 11:24 08/19/25 02:52 Tramadol Hcl 50 Mg Tablet PO 08/23/25 11:23 50 mg Q6HR PRN Administration PAIN SCALE 4-10(Mod-Sev Plan 64-year-old female with past medical history of Ischemic CVA involving the right cerebellum, vascular dementia, diabetes mellitus type 2 and chronic low back pain presented to the ED after she had a fall today. #Urinary tract infection #Sepsis secondary to UTI, improving Initial vitals pulse rate 126, respiratory 26, temperature 102.4?sepsis according to SIRS criteria. Denies any symptoms of UTI Urine is looking very cloudy, urine WBC 570, urinary leukocyte esterase positive Given ceftriaxone 1 g in the ED. End organ dysfunction noted with ANASTASIA; baseline Creatinine of 0.9 -> presented with Cr 1.3 BCtx was positive for GNR in 1 of 2 bottles after 48h. Plan: Increased IV ceftriaxone 2g daily Pending urine cultures. #Presyncope #Fall Denies any palpitation dizziness or loss of consciousness Ordered CT head and CT is negative for any mass or hemorrhage or any midline shift On 04/15, patient dropped BP from 120/62 to 92/60, lying to sitting. Plan: Recommended pt to avoid standing for long periods; sit or lie down when symptoms occur; slow down movements when standing up; exercise regularly, and stay hydrated. Wear compression stockings as soon as swelling in her ankle resolves. Echo ordered #Hypertensive urgency #Hypertension Denies any symptoms of headache, blurriness of vision, chest pain. Her initial blood pressure when she arrived is 156/72 but around 1:30 AM her blood pressure rise to 200/97. IV labetalol 20 mg given when her blood pressure is over 200/97. Initial blood pressure goal is 25 to 30% reduction. Plan: -lisinopril 40mg daily -labetalol IV 10mg Q2h PRN SBP >180 or DBP >105 Continue to monitor. #Ankle sprain Complains of right ankle swelling and twisting X-ray foot negative for fracture Plan: Tramadol PO 50mg Q6h PRN pain scale 4-10 #Insulin-dependent type 2 diabetes #?Gastroparesis KUB showed moderately air distended stomach. Moderate stool throughout the colon. No free air. Prominent osteopenia. CT AP wo revealed large amount of cardiac, hepatomegaly 22 cm, gallstones perinephric stranding. Notably, no bowel obstruction normal appendix, negative for cystitis. And confirmed osteopenia. There was perinephric stranding as well as mild to moderate bilateral renal parenchymal scar formation without hydronephrosis or ureteral calculi. Takes glargine and Humulin at her home. goal range for AM glc 140-200 Plan: Started on Degludec 40u qday Started insulin lispro 6u QID Starting on sliding scale -step 3 LR IV 1L @75mL/h Continue to monitor #Vascular Dementia #Psychiatric Conditions On home medications memantine, donepezil, quetiapine, nortriptyline Plan: Restarted some of them, will hold off on donepezil as there is interaction with other medications Health Maintenance: Lines: PIV Diet: Carb consistent low Bowel: Senna GI prophylaxis: Not needed DVT prophylaxis: Lovenox Dispo: IV antibiotics for UTI, echo for syncope workup Code: Full This case was discussed with my attending physician, Dr. Cary, and senior resident, Dr Schuler. Shivam Davalos, DO PGY I Attending Provider Attestation/Addendum I have examined the patient, reviewed labs and imaging findings, discussed the case with the resident(s), and reviewed entered orders. I agree with the plan of care as outlined in this note, with these additional summaries/recommendations: Patient seen at bedside. No acute overnight events. Overnight patient developed intractable nausea/vomiting and distended abdomen. NG tube was placed and patient reports significant improvement in nausea/vomiting today. We will order CT abdomen and pelvis to rule out SBO. Continue IV antibiotic for urinary tract infection. Urine culture pending. Blood cultures preliminarily showing 1 out of 2 bottles growing GNR and we will await final speciation. Patient was seen by physical therapy who recommends SNF placement. Patient had a ground- level fall and endorsing right ankle swelling and pain. Most likely sprained ankle. No evidence of fracture on imaging. Pain management and outpatient follow-up with orthopedics if not improved. Patient has uncontrolled diabetes mellitus type 2 with A1c 10.8%. Continue basal bolus insulin and target blood sugar of 140-180 while hospitalized. Resume home Seroquel and awaiting further medication reconciliation. Patient updated on the plan and agreement. All questions answered to satisfaction. Please see residents note for additional details of management. Dr. Luis Daniel MD
[2025-08-20] VITALS (7 sets, daily range): BP systolic 113–132; BP diastolic 58–69; PULSE 74–102; RESP 14–22; TEMP 36.1–36.9; O2SAT 89–97; BMI 35.5; BMI 13.0
[2025-08-20] MEDS: INSULIN LISPRO (AdmeLOG) 1 UNIT/0.01 ML UNIT SC ×4 (00:02→17:24)
[2025-08-20] MEDS: INSULIN LISPRO (AdmeLOG) 1 UNIT/0.01 ML UNIT 6 UNIT SC ×2 (00:02→05:34)
[2025-08-20] MEDS: GABAPENTIN 300 MG CAPSULE 600 MG PO ×3 (05:30→22:11)
--- NOTE | 2025-08-20 08:56 | PC.SS ---
Follow up note: On IV antibiotic. Blood cultures are pending. Pt will dc to [facility] and insurance authorization is required.
[2025-08-20] MEDS: INSULIN DEGLUDEC 5 UNIT/0.05 ML (PER 5 UNITS) 40 UNIT SC (09:30)
[2025-08-20] MEDS: ENOXAPARIN SOD INJ 40 MG/0.4 ML SYRINGE SC (09:32)
[2025-08-20] MEDS: Milk Of Magnesia Susp 30 ML UDC PO (09:32)
[2025-08-20] MEDS: cefTRIAXone/D5w 2gm 2 GM/50 ML BAG IV (09:33)
[2025-08-20] MEDS: NORTRIPTYLINE HCL 25 MG CAPSULE PO (09:34)
[2025-08-20] MEDS: MEMANTINE HCL 5 MG TABLET PO ×2 (09:36→20:40)
[2025-08-20] MEDS: ERYTHROMYCIN E-SUCC SUSP 200 MG/5 ML 250 MG PO ×2 (12:28→17:23)
[2025-08-20] MEDS: LACTULOSE SYRUP 20 GM/30 ML UDC PO (12:29)
[2025-08-20 12:41] LABS: Basophils # (Auto) 0.0 Thou/mm3 (0.0-0.2); Basophils % (Auto) 0 % (0-2.5); Eosinophils # (Auto) 0.3 Thou/mm3 (0.0-0.5); Eosinophils % (Auto) 4 % (0-10); Hematocrit 33.5 % (36.0-46.0); Hemoglobin 11.0 g/dL (12.0-16.0); Immature Granulocytes Auto 0.03 Thou/mm3 (0.00-0.00); Lymphocytes # (Auto) 2.8 Thou/mm3 (1.0-4.8); Lymphocytes % (Auto) 33 % (10-50); Mean Corpuscular HGB Conc 32.8 g/dl (31.0-37.0); Mean Corpuscular Hemoglobin 29.4 pg (25.0-35.0); Mean Corpuscular Volume 90 fL (80-100); Monocytes # (Auto) 0.6 Thou/mm3 (0.0-0.8); Monocytes % (Auto) 7 % (0-12); Neutrophils # (Auto) 4.8 Thou/mm3 (1.8-7.7); Neutrophils % (Auto) 56 % (37-80); Nucleated Red Blood Cell # 0.00 Thou/mm3 (0.00-0.00); Nucleated Red Blood Cell % 0 /100 WBC (0); Platelet Count 188 Thou/mm3 (140-440); RDW Standard Deviation 38.5 fL (36.4-46.3); Red Blood Count 3.74 Miln/mm3 (4.00-5.20); White Blood Count 8.6 Thou/mm3 (3.6-11.0)
[2025-08-20 13:08] LABS: Alanine Aminotransferase 20 U/L (10-49); Albumin, Serum 3.9 gm/dL (3.4-4.8); Albumin/Globulin Ratio 1.4 (1.2-2.2); Alkaline Phosphatase 57 U/L (46-116); Anion Gap 10 (7-16); Aspartate Amino Transferase 25 U/L (0-34); BUN/Creatinine Ratio 25 Ratio (12-20); Bilirubin,Total < 0.2 mg/dL (0.3-1.2); Blood Urea Nitrogen 40 mg/dL (9-23); Calcium 8.8 mg/dL (8.3-10.6); Calcium (Corrected) 8.9 mg/dL (8.5-10.1); Carbon Dioxide 33.5 mMol/L (20.0-31.0); Chloride 96 mMol/L (98-107); Creatinine (Component) 1.6 mg/dL (0.6-1.3); Estimated Creatinine Clearance 42.5 mL/min (>60); Globulin 2.7 gm/dL (2.3-3.5); Glucose 190 mg/dL (74-106); Magnesium 2.2 mg/dL (1.6-2.6); Osmolality,Calculated 292 (275-295); Phosphorous 5.7 mg/dL (2.4-5.1); Potassium 3.7 mMol/L (3.4-5.1); Sodium 139 mMol/L (136-145); Total Protein 6.6 gm/dL (5.7-8.2); eGFR 36 See Note
[2025-08-20] MEDS: INSULIN LISPRO (AdmeLOG) 1 UNIT/0.01 ML UNIT 8 UNIT SC ×2 (13:33→17:24)
[2025-08-20] MEDS: POLYETHYLENE GLYCOL 17 GM PACKET 34 GM PO (15:29)
--- NOTE | 2025-08-20 16:14 | ESPR_ITS ---
<Statement entered by Min Schuler MD - 08/20/25 20:46> Patient was seen and examined at bedside. I agree on the assessment and plan on this note as documented by resident Shivam Davalos DO PGY1. 64-year-old female with past medical history as below admitted for sepsis secondary to urinary tract infection, 1/2 GNR bottles speciated as E. coli, urine culture positive for E. coli as well, CT abdomen pelvis from yesterday significant for perinephric stranding, patient had pyelonephritis complicated by bacteremia. Will continue IV ceftriaxone for now. Patient continues to complain of gastric symptoms, has significant constipation. Bowel regimen was adjusted, patient was given lactulose earlier today, will start on senna docusate 2 tablets daily along with 34 g of MiraLAX. Patient also started on scheduled erythromycin AC 250 mg to manage gastroparesis. Patient working with physical therapy, discharge plan likely to senior living facility. Blood glucose controlled optimally on insulin regimen. Case discussed with attending MD Min Long MD PGY-2 Documentation for date of: 08/20/25 Subjective Subjective Interval history: Patient seen and assessed in hospital bed, who reports progressive improvement in right ankle pain, swelling, and redness, and ROM with in bed exercises. Patient is concerned she is not generating bowel movements, and has not had one for 6 days. Although abdomen is distended, it is soft and nontender. Pt denies lightheadedness, dizzines, SOB, or palpitations, and although urine was positive for pyuria, she denies dysuria. Exam Vital Signs Temp Pulse Resp BP Pulse Ox O2 Del Method 96.9 F 93 14 128/67 96 Nasal Cannula 08/20/25 12:00 08/20/25 12:00 08/20/25 12:00 08/20/25 12:00 08/20/25 12:00 08/20/25 12:00 Narrative Exam Physical Exam: GENERAL: Awake, answering questions appropriately HEENT: NC/AT. Moist mucosa. PERRLA/EOMI. CARDIO: Heart RRR, no obvious murmurs, no JVD. PULM: No coughing or visible SOB. Lungs CTA B/L. GI: Abdomen soft, nontender, distended, +BS present but diminished, percussion tympanic throughout all quadrants. SKIN/MSK/EXT: Right ankle swollen, erythematous, with pain on palpation. Lower back tenderness diffusely. No wounds/discoloration/rashes/edema/amputations noted. +Pedal pulses present B/L. NEURO: Oriented x3, Moves extremities x4, no focal neurologic deficits noted. Objective Labs 08/22/25 10:41 08/22/25 10:41 Labs: Laboratory Results - last 24 hr 08/20/25 12:21 WBC 8.6 RBC 3.74 L Hgb 11.0 L Hct 33.5 L MCV 90 MCH 29.4 MCHC 32.8 RDW Std Deviation 38.5 Plt Count 188 Neut % (Auto) 56 Lymph % (Auto) 33 [place] % (Auto) 7 Eos % (Auto) 4 Baso % (Auto) 0 Neut # (Auto) 4.8 Lymph # (Auto) 2.8 [place] # (Auto) 0.6 Eos # (Auto) 0.3 Baso # (Auto) 0.0 Immature Gran # (Auto) 0.03 H Absolute Nucleated RBC 0.00 Immature Gran % 0 Nucleated RBC % 0 Sodium 139 Potassium 3.7 Chloride 96 L Carbon Dioxide 33.5 H Anion Gap 10 BUN 40 H Creatinine 1.6 H Estim Creat Clear Calc 42.5 L eGFR 36 L BUN/Creatinine Ratio 25 H Glucose 190 H D Calculated Osmolality 292 Calcium 8.8 Corrected Calcium 8.9 Phosphorus 5.7 H Magnesium 2.2 Total Bilirubin < 0.2 L AST 25 ALT 20 Alkaline Phosphatase 57 Total Protein 6.6 Albumin 3.9 D Globulin 2.7 Albumin/Globulin Ratio 1.4 Quality Measures Quality Measures sepsis Current suspected stage: ruled out Possible source: genitourinary Blood cultures ordered: yes Antibiotic ordered: Yes Assessment & Plan Assessment Current Active Medications: Generic Name Dose Route Start Last Admin Trade Name Freq PRN Reason Stop Dose Admin Acetaminophen 650 mg 08/17/25 04:33 08/17/25 06:10 Acetaminophen 325 Mg Tablet PO 09/16/25 04:32 650 mg Q6H PRN Administration Fever >101.5 Dextrose 25 ml 08/17/25 04:42 Dextrose 50%-Water Inj 50 Ml Syringe IV 09/16/25 04:41 Q15MIN PRN BG 50-70 responsive npo pt Dextrose 50 ml 08/17/25 04:42 Dextrose 50%-Water Inj 50 Ml Syringe IV 09/16/25 04:41 Q15MIN PRN BG <50 OR BG <70 & pt unresponsive Diclofenac Sodium 4 gm 08/18/25 11:21 Diclofenac 1% Top Gel 100 Gm Tube TOP 09/17/25 13:59 TID PRN Ankle Pain Protocol Enoxaparin Sodium 40 mg 08/17/25 09:00 08/20/25 09:32 Enoxaparin Sod Inj 40 Mg/0.4 Ml Syringe SC 08/31/25 08:59 40 mg QDAY RAYO Administration Erythromycin Ethylsuccinate 250 mg 08/20/25 11:30 08/20/25 12:28 Erythromycin E-Succ Susp 200 Mg/5 Ml PO 08/27/25 11:29 250 mg AC RAYO Administration Gabapentin 600 mg 08/17/25 14:00 08/20/25 13:33 Gabapentin 300 Mg Capsule PO 09/16/25 13:59 600 mg TID RAYO Administration Glucagon 1 mg 08/17/25 04:42 Glucagon Inj 1 Mg Vial IM Q15MIN PRN BG <70, and no IV access Ceftriaxone Sodium/Dextrose 2 gm in 50 mls @ 100 mls/hr 08/18/25 11:04 08/20/25 09:33 Rocephin/D5w 2gm IV 08/25/25 11:03 100 mls/hr QDAY RAYO Administration Insulin Degludec 40 unit 08/19/25 09:00 08/20/25 09:30 Insulin Degludec 5 Unit/0.05 Ml (Per 5 Units) SC 09/18/25 08:59 40 unit QDAY RAYO Administration Insulin Human Lispro 8 unit 08/20/25 11:30 08/20/25 13:33 Insulin Lispro (Admelog) 1 Unit/0.01 Ml Unit SC 09/19/25 11:29 8 unit AC RAYO Administration Insulin Human Lispro 0 unit 08/20/25 11:30 08/20/25 13:26 Insulin Lispro (Admelog) 1 Unit/0.01 Ml Unit SC 09/19/25 11:29 2 unit AC RAYO Administration Protocol Labetalol HCl 10 mg 08/17/25 16:27 08/19/25 04:00 Labetalol Inj 5 Mg/Ml Vial 20 Ml IVP 09/16/25 17:59 10 mg Q2HR PRN Administration BP >180/105 and HR >70 Lisinopril 40 mg 08/18/25 09:00 08/20/25 09:35 Lisinopril 20 Mg Tablet PO 09/17/25 08:59 40 mg QDAY RAYO Administration Magnesium Hydroxide 30 ml 08/17/25 04:38 08/20/25 09:32 Milk Of Magnesia Susp 30 Ml Udc PO 09/16/25 04:37 30 ml QDAY PRN Administration CONSTIPATION Protocol Memantine 5 mg 08/17/25 09:00 08/20/25 09:36 Memantine Hcl 5 Mg Tablet PO 09/16/25 08:59 5 mg BID RAYO Administration Nortriptyline HCl 25 mg 08/17/25 09:00 08/20/25 09:34 Nortriptyline Hcl 25 Mg Capsule PO 09/16/25 08:59 25 mg QDAY RAYO Administration Ondansetron HCl 4 mg 08/17/25 04:38 08/19/25 02:35 Ondansetron Inj 2 Mg/Ml Inj 2 Ml IVP 09/16/25 04:37 4 mg Q6H PRN Administration NAUSEA OR VOMITING Protocol Polyethylene Glycol 34 gm 08/20/25 14:30 08/20/25 15:29 Polyethylene Glycol 17 Gm Packet PO 09/19/25 14:29 34 gm QDAY RAYO Administration Quetiapine Fumarate 200 mg 08/17/25 09:00 08/20/25 09:34 Quetiapine Fumarate 100 Mg Tablet PO 09/16/25 08:59 200 mg BID RAYO Administration Sennosides 2 tab 08/20/25 14:30 Senna/Docusate Sod 1 Tab Tablet PO 09/19/25 14:29 QDAY PRN CONSTIPATION Protocol Tramadol HCl 50 mg 08/18/25 11:24 08/20/25 15:29 Tramadol Hcl 50 Mg Tablet PO 08/23/25 11:23 50 mg Q6HR PRN Administration PAIN SCALE 4-10(Mod-Sev Plan 64-year-old female with past medical history of Ischemic CVA involving the right cerebellum, vascular dementia, diabetes mellitus type 2 and chronic low back pain presented to the ED after she had a fall today. #Urinary tract infection #Sepsis secondary to UTI, improving #E coli Bacteremia Initial vitals pulse rate 126, respiratory 26, temperature 102.4?sepsis according to SIRS criteria. Denies any symptoms of UTI Urine is looking very cloudy, urine WBC 570, urinary leukocyte esterase positive End organ dysfunction noted with ANASTASIA; baseline Creatinine of 0.9 -> presented with Cr 1.3 CTAP (08/19) showed perinephric stranding as well as mild to moderate bilateral renal parenchymal scar formation without hydronephrosis or ureteral calculi. BCtx was positive for GNR in 1 of 2 bottles after 48h. U ctx grew E. coli ? Although only 1 bottle out of 2 blood samples grew E. coli, since it speciated in the same organism that had grown in urine culture, there is considerable probability for bacteremia. 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 Echocardiogram (08/17/2025) 1. Left ventricle size is normal and systolic function is mildly reduced. Estimated ejection fraction is 40-45%. There is indeterminate diastolic function. There is normal geometry noted. 2. Normal right ventricular size and function. Plan: -Recommended pt to avoid standing for long periods; sit or lie down when symptoms occur; slow down movements when standing up; exercise regularly, and stay hydrated. Wear compression stockings as soon as swelling in her ankle resolves. -Lasix PO 20mg on hold #Ankle sprain Complains of right ankle swelling and twisting. Patient had a ground-level fall on 08/16 and endorsing right ankle swelling and pain. X-ray foot negative for fracture Plan: -Diclofenac top 4g TID PRN -Tramadol PO 50mg Q6h PRN pain scale 4-10 -outpatient follow-up with orthopedics if not improved. #Hypertensive urgency #Hypertension Denies any symptoms of headache, blurriness of vision, chest pain. Her initial blood pressure when she arrived is 156/72 but around 1:30 AM her blood pressure rise to 200/97. IV labetalol 20 mg given when her blood pressure is over 200/97. Initial blood pressure goal is 25 to 30% reduction. Plan: -lisinopril 40mg daily -labetalol IV 10mg Q2h PRN SBP >180 or DBP >105 Continue to monitor. #Insulin-dependent type 2 diabetes #?Gastroparesis Patient has uncontrolled T2DM. A1c 10.8%. KUB showed moderately air distended stomach. Moderate stool throughout the colon. No free air. Prominent osteopenia. CT AP wo revealed large amount of cardiac, hepatomegaly 22 cm, gallstones. Notably, no bowel obstruction normal appendix, negative for cystitis. And confirmed osteopenia. Takes glargine and Humulin at her home. goal range for AM glc 140-200 Plan: Started on Degludec 40u qday Started insulin lispro 8u AC sliding scale insulin lispro step 2 erythromycin PO 250mg AC Polyethylene glycol p.o. 34 g daily Lactulose syrup p.o. 20 g x 1 Milk of magnesium suspension p.o. 30 mL as needed gabapentin PO 600mg TID Continue to monitor #Vascular Dementia #Psychiatric Conditions On home medications memantine, quetiapine, nortriptyline (donepezil on hold) Health Maintenance: Lines: PIV Diet: Carb consistent low GI prophylaxis: Not needed DVT prophylaxis: heparin inj 5000u bid Dispo: IV antibiotics for UTI, echo for syncope workup, physical therapy recommends SNF placement. Code: Full This case was discussed with my attending physician, Dr. Cary, and senior resident, Dr Schuler. Shivam Davalos, DO PGY I Attending Provider Attestation/Addendum I have examined the patient, reviewed labs and imaging findings, discussed the case with the resident(s), and reviewed entered orders. I agree with the plan of care as outlined in this note, with these additional summaries/recommendations: Patient seen at bedside. No acute overnight events. Patient continues to endorse severe constipation and has not had a bowel movement in 4 days. Will start aggressive bowel regimen today. CT of abdomen and pelvis yesterday showed no evidence of SBO. Perinephric fat stranding was noted. Continue IV antibiotic for urinary tract infection/pyelo. Urine culture grew pansensitive E. coli. 1 of 2 blood cultures also grew pansensitive E. coli and patient diagnosed with bacteremia as well. Continue IV antibiotic and will de-escalate when appropriate. Patient was seen by physical therapy who recommends SNF placement. Patient has right ankle strain secondary to ground-level fall which is improving. No evidence of fracture on imaging. Pain management and outpatient follow-up with orthopedics if not improved. Patient has uncontrolled diabetes mellitus type 2 with A1c 10.8%. Continue basal bolus insulin and target blood sugar of 140-180 while hospitalized. Continue home Seroquel. Patient updated on the plan and agreement. All questions answered to satisfaction. Please see residents note for additional details of management. Dr. Luis Daniel MD
[2025-08-20] MEDS: HEPARIN SOD INJ 5000 UNIT/ML VIAL SC (20:40)
[2025-08-21] VITALS (11 sets, daily range): BP systolic 123–138; BP diastolic 64–76; PULSE 83–94; RESP 16–95; TEMP 35.7–37; O2SAT 93–98
[2025-08-21] MEDS: DICLOFENAC 1% TOP GEL 100 GM TUBE TOP (05:34)
[2025-08-21] MEDS: GABAPENTIN 300 MG CAPSULE 600 MG PO ×3 (05:38→21:05)
[2025-08-21 06:15] LABS: Basophils # (Auto) 0.0 Thou/mm3 (0.0-0.2); Basophils % (Auto) 0 % (0-2.5); Eosinophils # (Auto) 0.4 Thou/mm3 (0.0-0.5); Eosinophils % (Auto) 5 % (0-10); Hematocrit 28.9 % (36.0-46.0); Hemoglobin 9.5 g/dL (12.0-16.0); Immature Granulocytes Auto 0.03 Thou/mm3 (0.00-0.00); Lymphocytes # (Auto) 2.6 Thou/mm3 (1.0-4.8); Lymphocytes % (Auto) 38 % (10-50); Mean Corpuscular HGB Conc 32.9 g/dl (31.0-37.0); Mean Corpuscular Hemoglobin 29.6 pg (25.0-35.0); Mean Corpuscular Volume 90 fL (80-100); Monocytes # (Auto) 0.6 Thou/mm3 (0.0-0.8); Monocytes % (Auto) 8 % (0-12); Neutrophils # (Auto) 3.4 Thou/mm3 (1.8-7.7); Neutrophils % (Auto) 49 % (37-80); Nucleated Red Blood Cell # 0.00 Thou/mm3 (0.00-0.00); Nucleated Red Blood Cell % 0 /100 WBC (0); Platelet Count 150 Thou/mm3 (140-440); RDW Standard Deviation 38.0 fL (36.4-46.3); Red Blood Count 3.21 Miln/mm3 (4.00-5.20); White Blood Count 6.9 Thou/mm3 (3.6-11.0)
[2025-08-21 06:39] LABS: Alanine Aminotransferase 19 U/L (10-49); Albumin, Serum 3.7 gm/dL (3.4-4.8); Albumin/Globulin Ratio 1.7 (1.2-2.2); Alkaline Phosphatase 57 U/L (46-116); Anion Gap 8 (7-16); Aspartate Amino Transferase 22 U/L (0-34); BUN/Creatinine Ratio 25 Ratio (12-20); Bilirubin,Total 0.2 mg/dL (0.3-1.2); Blood Urea Nitrogen 45 mg/dL (9-23); Calcium 8.4 mg/dL (8.3-10.6); Calcium (Corrected) 8.6 mg/dL (8.5-10.1); Carbon Dioxide 31.6 mMol/L (20.0-31.0); Chloride 93 mMol/L (98-107); Creatinine (Component) 1.8 mg/dL (0.6-1.3); Estimated Creatinine Clearance 37.7 mL/min (>60); Globulin 2.2 gm/dL (2.3-3.5); Glucose 356 mg/dL (74-106); Magnesium 2.3 mg/dL (1.6-2.6); Osmolality,Calculated 291 (275-295); Phosphorous 4.0 mg/dL (2.4-5.1); Potassium 3.8 mMol/L (3.4-5.1); Sodium 133 mMol/L (136-145); Total Protein 5.9 gm/dL (5.7-8.2); eGFR 31 See Note
[2025-08-21] MEDS: INSULIN LISPRO (AdmeLOG) 1 UNIT/0.01 ML UNIT 8 UNIT SC ×3 (07:37→16:49)
[2025-08-21] MEDS: INSULIN LISPRO (AdmeLOG) 1 UNIT/0.01 ML UNIT SC ×3 (07:39→16:50)
[2025-08-21] MEDS: ERYTHROMYCIN E-SUCC SUSP 200 MG/5 ML 250 MG PO ×2 (09:12→16:49)
[2025-08-21] MEDS: MEMANTINE HCL 5 MG TABLET PO ×2 (10:04→21:06)
[2025-08-21] MEDS: NORTRIPTYLINE HCL 25 MG CAPSULE PO (10:05)
[2025-08-21] MEDS: INSULIN DEGLUDEC 5 UNIT/0.05 ML (PER 5 UNITS) 40 UNIT SC (10:06)
[2025-08-21] MEDS: POLYETHYLENE GLYCOL 17 GM PACKET 34 GM PO (10:06)
[2025-08-21] MEDS: HEPARIN SOD INJ 5000 UNIT/ML VIAL SC ×2 (10:08→21:06)
[2025-08-21] MEDS: cefTRIAXone/D5w 2gm 2 GM/50 ML BAG IV (10:09)
[2025-08-21 10:21] LABS: Chloride,Urine Random < 20.0 mMol/L (55.0-125.0); Potassium,Urine Random 19 mMol/L (12-62); Protein Total, Random Urine 42 mg/dL (1-14); Sodium,Urine Random 37.2 mMol/L (20.0-110.0); Urea Nitrogen, Random Urine 687.0 mg/dL (350.0-1000.0)
--- NOTE | 2025-08-21 10:27 | PC.SS ---
SS provided resident team with Dr. Cline's (medical physics researcher at [facility]) phone# [phone] to discuss patient being on Seroquel.
[2025-08-21 10:59] LABS: Cocci Serology, IgG Negative (Negative)
--- NOTE | 2025-08-21 11:22 | PC.NURSE ---
Student nurses and PBX SUPERVISOR were attempting to remove pt from bedpan as well as obtain vitals and bedside blood glucose check. Pt not ready to come off bedpan, although she has already been on for 10 minutes. She was educated on skin breakdown. Pt became agitated and was yelling at students and PBX SUPERVISOR to get out of the room. I checked on pt, assured her she had her call light and to please use it when she was done. She understands skin risk and knows where she is at and why she is here at this time. Pt no longer agitated. Avasure in place and fall precautions active.
--- NOTE | 2025-08-21 11:33 | PC.NURSE ---
Patient refused temperature check and repeatedly yelled to leave the room.
--- NOTE | 2025-08-21 11:59 | PC.NURSE ---
Students in to reassess pt's mood. Pt still refusing care at this time and agitated. Has call light and avasure.
--- NOTE | 2025-08-21 13:24 | PC.NURSE ---
pt in much more agreeable mood. allowed bedside blood glucose check and insulin administration.
[2025-08-21] MEDS: LACTULOSE SYRUP 20 GM/30 ML UDC PO (16:49)
[2025-08-21] MEDS: SODIUM CHLORIDE 0.9% 500 ML 500 ML 999 ML IV (17:21)
--- NOTE | 2025-08-21 17:46 | PD.RESPRO ---
Documentation for date of: 08/21/25 Subjective Subjective Interval history: Patient seen and examined at bedside, no overnight events. Patient continues to complain of abdominal distention and pain, did have a bowel movement yesterday, will give another dose of lactulose, will continue bowel regimen with senna and MiraLAX. Will consider enema if no relief. Patient's renal function continues to worsen, CT abdomen pelvis does show moderate bilateral renal scarring, urine electrolytes ordered however patient did receive IV fluids for the hospitalization. Echocardiogram does show reduced systolic function, EF 40 to 45%, bedside IVC assessment conducted however due to distended abdomen not good visualization, IVC compressible near the heart, will challenge with 500 cc bolus and monitor renal function in a.m., ordered repeat BNP for a.m., old BNP from June 2025 has been less than 20. Exam Vital Signs Temp Pulse Resp BP Pulse Ox O2 Del Method O2 Flow Rate 98.6 F 87 16 138/68 H 95 Room Air 1 08/21/25 16:00 08/21/25 16:00 08/21/25 16:00 08/21/25 16:00 08/21/25 16:00 08/21/25 16:00 08/21/25 07:06 Narrative Exam Physical Exam: GENERAL: Awake, answering questions appropriately HEENT: NC/AT. Moist mucosa. PERRLA/EOMI. CARDIO: Heart RRR, no obvious murmurs, no JVD. PULM: No coughing or visible SOB. Lungs CTA B/L. GI: Abdomen soft, nontender, distended, +BS present but diminished, percussion tympanic throughout all quadrants. SKIN/MSK/EXT: Right ankle swollen, erythematous, with pain on palpation. Lower back tenderness diffusely. No wounds/discoloration/rashes/edema/amputations noted. +Pedal pulses present B/L. NEURO: Oriented x3, Moves extremities x4, no focal neurologic deficits noted. Objective Labs 08/22/25 10:41 08/22/25 10:41 Labs: Laboratory Results - last 24 hr 08/18/25 08/21/25 08/21/25 05:00 05:54 10:00 WBC 6.9 RBC 3.21 L Hgb 9.5 L Hct 28.9 L MCV 90 MCH 29.6 MCHC 32.9 RDW Std Deviation 38.0 Plt Count 150 D Neut % (Auto) 49 Lymph % (Auto) 38 [place] % (Auto) 8 Eos % (Auto) 5 Baso % (Auto) 0 Neut # (Auto) 3.4 Lymph # (Auto) 2.6 [place] # (Auto) 0.6 Eos # (Auto) 0.4 Baso # (Auto) 0.0 Immature Gran # (Auto) 0.03 H Absolute Nucleated RBC 0.00 Immature Gran % 0 Nucleated RBC % 0 Sodium 133 L Potassium 3.8 Chloride 93 L Carbon Dioxide 31.6 H Anion Gap 8 BUN 45 H Creatinine 1.8 H Estim Creat Clear Calc 37.7 L eGFR 31 L BUN/Creatinine Ratio 25 H Glucose 356 H D Calculated Osmolality 291 Calcium 8.4 Corrected Calcium 8.6 Phosphorus 4.0 Magnesium 2.3 Total Bilirubin 0.2 L AST 22 ALT 19 Alkaline Phosphatase 57 Total Protein 5.9 Albumin 3.7 Globulin 2.2 L Albumin/Globulin Ratio 1.7 U Random Total Protein 42 H Ur Random Sodium 37.2 Ur Random Potassium 19 Ur Random Chloride < 20.0 L Ur Random Urea Nitrogn 687.0 Coccidioides IgG Ab Negative Quality Measures Quality Measures sepsis Current suspected stage: ruled out Possible source: genitourinary Blood cultures ordered: yes Antibiotic ordered: Yes Assessment & Plan Assessment Current Active Medications: Generic Name Dose Route Start Last Admin Trade Name Freq PRN Reason Stop Dose Admin Acetaminophen 650 mg 08/17/25 04:33 08/17/25 06:10 Acetaminophen 325 Mg Tablet PO 09/16/25 04:32 650 mg Q6H PRN Administration Fever >101.5 Dextrose 25 ml 08/17/25 04:42 Dextrose 50%-Water Inj 50 Ml Syringe IV 09/16/25 04:41 Q15MIN PRN BG 50-70 responsive npo pt Dextrose 50 ml 08/17/25 04:42 Dextrose 50%-Water Inj 50 Ml Syringe IV 09/16/25 04:41 Q15MIN PRN BG <50 OR BG <70 & pt unresponsive Diclofenac Sodium 4 gm 08/18/25 11:21 08/21/25 05:34 Diclofenac 1% Top Gel 100 Gm Tube TOP 09/17/25 13:59 4 gm TID PRN Administration Ankle Pain Protocol Erythromycin Ethylsuccinate 250 mg 08/20/25 11:30 08/21/25 16:49 Erythromycin E-Succ Susp 200 Mg/5 Ml PO 08/27/25 11:29 250 mg AC RAYO Administration Gabapentin 600 mg 08/17/25 14:00 08/21/25 13:14 Gabapentin 300 Mg Capsule PO 09/16/25 13:59 600 mg TID RAYO Administration Glucagon 1 mg 08/17/25 04:42 Glucagon Inj 1 Mg Vial IM Q15MIN PRN BG <70, and no IV access Heparin Sodium (Porcine) 5,000 unit 08/20/25 21:00 08/21/25 10:08 Heparin Sod Inj 5000 Unit/Ml Vial SC 09/03/25 20:59 5,000 unit Q12HR RAYO Administration Ceftriaxone Sodium/Dextrose 2 gm in 50 mls @ 100 mls/hr 08/18/25 11:04 08/21/25 10:09 Rocephin/D5w 2gm IV 08/25/25 11:03 100 mls/hr QDAY RAYO Administration Insulin Degludec 40 unit 08/19/25 09:00 08/21/25 10:06 Insulin Degludec 5 Unit/0.05 Ml (Per 5 Units) SC 09/18/25 08:59 40 unit QDAY RAYO Administration Insulin Human Lispro 8 unit 08/20/25 11:30 08/21/25 16:49 Insulin Lispro (Admelog) 1 Unit/0.01 Ml Unit SC 09/19/25 11:29 8 unit AC RAYO Administration Insulin Human Lispro 0 unit 08/20/25 11:30 08/21/25 16:50 Insulin Lispro (Admelog) 1 Unit/0.01 Ml Unit SC 09/19/25 11:29 3 unit AC RAYO Administration Protocol Labetalol HCl 10 mg 08/17/25 16:27 08/19/25 04:00 Labetalol Inj 5 Mg/Ml Vial 20 Ml IVP 09/16/25 17:59 10 mg Q2HR PRN Administration BP >180/105 and HR >70 Lisinopril 40 mg 08/18/25 09:00 08/21/25 10:13 Lisinopril 20 Mg Tablet PO 09/17/25 08:59 40 mg QDAY RAYO Administration Magnesium Hydroxide 30 ml 08/17/25 04:38 08/20/25 09:32 Milk Of Magnesia Susp 30 Ml Udc PO 09/16/25 04:37 30 ml QDAY PRN Administration CONSTIPATION Protocol Memantine 5 mg 08/17/25 09:00 08/21/25 10:04 Memantine Hcl 5 Mg Tablet PO 09/16/25 08:59 5 mg BID RAYO Administration Nortriptyline HCl 25 mg 08/17/25 09:00 08/21/25 10:05 Nortriptyline Hcl 25 Mg Capsule PO 09/16/25 08:59 25 mg QDAY RAYO Administration Ondansetron HCl 4 mg 08/17/25 04:38 08/19/25 02:35 Ondansetron Inj 2 Mg/Ml Inj 2 Ml IVP 09/16/25 04:37 4 mg Q6H PRN Administration NAUSEA OR VOMITING Protocol Polyethylene Glycol 34 gm 08/20/25 14:30 08/21/25 10:06 Polyethylene Glycol 17 Gm Packet PO 09/19/25 14:29 34 gm QDAY RAYO Administration Quetiapine Fumarate 200 mg 08/17/25 09:00 08/21/25 10:05 Quetiapine Fumarate 100 Mg Tablet PO 09/16/25 08:59 200 mg BID RAYO Administration Sennosides 2 tab 08/20/25 14:30 Senna/Docusate Sod 1 Tab Tablet PO 09/19/25 14:29 QDAY PRN CONSTIPATION Protocol Tramadol HCl 50 mg 08/18/25 11:24 08/21/25 13:15 Tramadol Hcl 50 Mg Tablet PO 08/23/25 11:23 50 mg Q6HR PRN Administration PAIN SCALE 4-10(Mod-Sev Plan 64-year-old female with past medical history of Ischemic CVA involving the right cerebellum, vascular dementia, diabetes mellitus type 2 and chronic low back pain presented to the ED after she had a fall today. #Pyelonephritis #Complicated urinary tract infection, E. coli UTI #Sepsis secondary to UTI, improving #E coli Bacteremia Initial vitals pulse rate 126, respiratory 26, temperature 102.4?sepsis according to SIRS criteria. Denies any symptoms of UTI Urine is looking very cloudy, urine WBC 570, urinary leukocyte esterase positive End organ dysfunction noted with ANASTASIA; baseline Creatinine of 0.9 -> presented with Cr 1.3 CTAP (08/19) showed perinephric stranding as well as mild to moderate bilateral renal parenchymal scar formation without hydronephrosis or ureteral calculi. BCtx was positive for GNR in 1 of 2 bottles after 48h. U ctx grew E. coli ? Although only 1 bottle out of 2 blood samples grew E. coli, since it speciated in the same organism that had grown in urine culture, there is considerable probability for bacteremia. Plan: - ceftriaxone IV 2g daily (08/18 -05/2025) #Acute kidney injury Patient's creatinine uptrending since last 3 days, Patient was given IV fluids on 08/19 after creatinine 1.4 however creatinine yesterday worsened to 1.6 and is up trended to 1.8 today. Patient has had multiple episodes of emesis, has poor p.o. intake. Urine electrolytes obtained today random total protein 42, random sodium 37.2, potassium 19, chloride less than 20, urea nitrogen 687 Bedside IVC assessment shows somewhat compressible IVC however limited study due to patient's distended abdomen. -Fluid challenge 500 cc NS - Follow renal panel in a.m. 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 Echocardiogram (08/17/2025) 1. Left ventricle size is normal and systolic function is mildly reduced. Estimated ejection fraction is 40-45%. There is indeterminate diastolic function. There is normal geometry noted. 2. Normal right ventricular size and function. Plan: -Recommended pt to avoid standing for long periods; sit or lie down when symptoms occur; slow down movements when standing up; exercise regularly, and stay hydrated. Wear compression stockings as soon as swelling in her ankle resolves. -Lasix PO 20mg on hold #Ankle sprain Complains of right ankle swelling and twisting. Patient had a ground-level fall on 08/16 and endorsing right ankle swelling and pain. X-ray foot negative for fracture Plan: -Diclofenac top 4g TID PRN -Tramadol PO 50mg Q6h PRN pain scale 4-10 -outpatient follow-up with orthopedics if not improved. #Hypertensive urgency #Hypertension Denies any symptoms of headache, blurriness of vision, chest pain. Her initial blood pressure when she arrived is 156/72 but around 1:30 AM her blood pressure rise to 200/97. IV labetalol 20 mg given when her blood pressure is over 200/97. Initial blood pressure goal is 25 to 30% reduction. Plan: -lisinopril 40mg daily -labetalol IV 10mg Q2h PRN SBP >180 or DBP >105 Continue to monitor. #Insulin-dependent type 2 diabetes #?Gastroparesis Patient has uncontrolled T2DM. A1c 10.8%. KUB showed moderately air distended stomach. Moderate stool throughout the colon. No free air. Prominent osteopenia. CT AP wo revealed large amount of cardiac, hepatomegaly 22 cm, gallstones. Notably, no bowel obstruction normal appendix, negative for cystitis. And confirmed osteopenia. Takes glargine and Humulin at her home. goal range for AM glc 140-200 Plan: Started on Degludec 40u qday Started insulin lispro 8u AC sliding scale insulin lispro step 2 erythromycin PO 250mg AC Polyethylene glycol p.o. 34 g daily Lactulose syrup p.o. 20 g x 1 Milk of magnesium suspension p.o. 30 mL as needed gabapentin PO 600mg TID Continue to monitor #Vascular Dementia #Psychiatric Conditions #Depression On home medications memantine, quetiapine, nortriptyline (donepezil on hold) Patient on Seroquel per PCP Dr. Dunaway for management of depression, will continue Health Maintenance: Lines: PIV Diet: Carb consistent low GI prophylaxis: Not needed DVT prophylaxis: heparin inj 5000u bid Dispo: IV antibiotics for UTI, echo for syncope workup, physical therapy recommends SNF placement. Code: Full This case was discussed with my attending physician, Dr. José Schuler Internal medicine resident PGY 2 Attending Provider Attestation/Addendum I have discussed and was present for the essential components of the history, physical examination, diagnosis, and treatment plan with the resident. I agree with the patient's care as documented by the resident and amended herein by me. Damien Kumar DO. Although this document has been carefully reviewed, there may still be some phonetic and other typographical errors. These errors are purely grammatical due to imperfections in the software program and should not be construed in any way to compromise the substance of the patient's medical care during this visit.
[2025-08-22] VITALS (17 sets, daily range): BP systolic 109–198; BP diastolic 6–100; PULSE 83–103; RESP 16–18; TEMP 36.3–36.6; O2SAT 92–97
--- NOTE | 2025-08-22 00:05 | PC.NURSE ---
RN and CRYPTOGRAPHIC MACHINE OPERATOR both attempted to place patient back on telemonitor. Patient very upset stating it's 12 get out . Will try again later.
--- NOTE | 2025-08-22 06:08 | PC.NURSE ---
Patient refusing monring philip, RN made aware.
[2025-08-22] MEDS: GABAPENTIN 300 MG CAPSULE 600 MG PO ×3 (06:17→21:58)
[2025-08-22] MEDS: INSULIN LISPRO (AdmeLOG) 1 UNIT/0.01 ML UNIT 10 UNIT SC ×3 (07:58→17:18)
[2025-08-22] MEDS: INSULIN LISPRO (AdmeLOG) 1 UNIT/0.01 ML UNIT SC ×4 (07:59→23:07)
--- NOTE | 2025-08-22 09:12 | PC.SS ---
Follow up note: Pending labs. ANASTASIA work up. Pt will dc to [facility].
--- NOTE | 2025-08-22 09:21 | XR_ITS ---
Examination: Abdomen AP single view Technique: AP portable supine abdomen, single view Exam date and time: August 22, 2025, 0952 hours, comparison August 19, 2025 INDICATION: Worsening abdominal distention this week, history sepsis episode November 2024 FINDINGS: Significantly air distended stomach Moderately air distended and stool distended colon No free air Prominent osteopenia Moderate narrowing hip joints IMPRESSION: Significantly air distended stomach Moderate air and stool distended colon
[2025-08-22] MEDS: INSULIN DEGLUDEC 5 UNIT/0.05 ML (PER 5 UNITS) 40 UNIT SC (09:35)
[2025-08-22] MEDS: cefTRIAXone/D5w 2gm 2 GM/50 ML BAG IV (09:38)
[2025-08-22] MEDS: ERYTHROMYCIN E-SUCC SUSP 200 MG/5 ML 250 MG PO ×3 (09:39→17:24)
[2025-08-22] MEDS: POLYETHYLENE GLYCOL 17 GM PACKET 34 GM PO (09:40)
[2025-08-22] MEDS: MEMANTINE HCL 5 MG TABLET PO ×2 (09:41→20:43)
[2025-08-22] MEDS: NORTRIPTYLINE HCL 25 MG CAPSULE PO (09:41)
[2025-08-22] MEDS: HEPARIN SOD INJ 5000 UNIT/ML VIAL SC (09:45)
[2025-08-22] MEDS: LIDOCAINE OINT 5% 35.44 GM TUBE TOP (10:28)
[2025-08-22 11:08] LABS: Basophils # (Auto) 0.0 Thou/mm3 (0.0-0.2); Basophils % (Auto) 0 % (0-2.5); Eosinophils # (Auto) 0.4 Thou/mm3 (0.0-0.5); Eosinophils % (Auto) 6 % (0-10); Hematocrit 29.8 % (36.0-46.0); Hemoglobin 9.9 g/dL (12.0-16.0); Immature Granulocytes Auto 0.02 Thou/mm3 (0.00-0.00); Lymphocytes # (Auto) 2.0 Thou/mm3 (1.0-4.8); Lymphocytes % (Auto) 29 % (10-50); Mean Corpuscular HGB Conc 33.2 g/dl (31.0-37.0); Mean Corpuscular Hemoglobin 29.2 pg (25.0-35.0); Mean Corpuscular Volume 88 fL (80-100); Monocytes # (Auto) 0.5 Thou/mm3 (0.0-0.8); Monocytes % (Auto) 7 % (0-12); Neutrophils # (Auto) 3.9 Thou/mm3 (1.8-7.7); Neutrophils % (Auto) 58 % (37-80); Nucleated Red Blood Cell # 0.00 Thou/mm3 (0.00-0.00); Nucleated Red Blood Cell % 0 /100 WBC (0); Platelet Count 167 Thou/mm3 (140-440); RDW Standard Deviation 37.2 fL (36.4-46.3); Red Blood Count 3.39 Miln/mm3 (4.00-5.20); White Blood Count 6.8 Thou/mm3 (3.6-11.0)
[2025-08-22 11:26] LABS: B-Type Natriuretic Peptide 26 pg/mL (0-100)
[2025-08-22 11:45] LABS: Alanine Aminotransferase 25 U/L (10-49); Albumin, Serum 3.9 gm/dL (3.4-4.8); Albumin/Globulin Ratio 1.6 (1.2-2.2); Alkaline Phosphatase 63 U/L (46-116); Anion Gap 8 (7-16); Aspartate Amino Transferase 35 U/L (0-34); BUN/Creatinine Ratio 23 Ratio (12-20); Bilirubin,Total < 0.2 mg/dL (0.3-1.2); Blood Urea Nitrogen 27 mg/dL (9-23); Calcium 8.9 mg/dL (8.3-10.6); Calcium (Corrected) 9.0 mg/dL (8.5-10.1); Carbon Dioxide 30.0 mMol/L (20.0-31.0); Chloride 100 mMol/L (98-107); Creatinine (Component) 1.2 mg/dL (0.6-1.3); Estimated Creatinine Clearance 56.6 mL/min (>60); Globulin 2.4 gm/dL (2.3-3.5); Glucose 249 mg/dL (74-106); Magnesium 2.3 mg/dL (1.6-2.6); Osmolality,Calculated 288 (275-295); Phosphorous 2.4 mg/dL (2.4-5.1); Potassium 4.2 mMol/L (3.4-5.1); Sodium 138 mMol/L (136-145); Total Protein 6.3 gm/dL (5.7-8.2); eGFR 51 See Note
[2025-08-22] MEDS: SIMETHICONE 80 MG CHEW PO (12:12)
--- NOTE | 2025-08-22 13:50 | PD.RESEVENT ---
Documentation for date of: 08/22/25 Event Note Event Note: Chica Naidu is a 64-year-old female with past medical history of? Ischemic CVA involving the right cerebellum, vascular dementia, diabetes mellitus type 2 and chronic low back pain who had presented to the ED after feeling lightheadedand and ground level fall. While receiving in-hospital management, patient carried the diagnosis of vascular dementia with or without behavioral disturbance, and was treated with Seroquel according to Dr Dunaway for management of depression, patient's PCP. A&P #Vascular Dementia with or without behavioral disturbance #Psychiatric Conditions #Depression On home medications memantine, quetiapine, nortriptyline (donepezil on hold) Patient on Seroquel per PCP Dr. Dunaway for management of depression, will continue This case was discussed with my attending physician, Dr. Kumar, and senior resident, Dr Schuler. Shivam Davalos, DO PGY I
[2025-08-22] MEDS: LABETALOL INJ 5 MG/ML VIAL 20 ML 10 MG IVP ×4 (14:17→21:58)
--- NOTE | 2025-08-22 15:05 | PD.RESPRO ---
Documentation for date of: 08/22/25 Exam Vital Signs Temp Pulse Resp BP Pulse Ox O2 Del Method O2 Flow Rate 97.4 F 97 18 194/100 H 97 Room Air 1 08/22/25 12:00 08/22/25 14:17 08/22/25 12:00 08/22/25 14:17 08/22/25 12:00 08/22/25 12:00 08/21/25 07:06 Objective Labs 08/22/25 10:41 08/22/25 10:41 Labs: Laboratory Results - last 24 hr 08/22/25 10:41 WBC 6.8 RBC 3.39 L Hgb 9.9 L Hct 29.8 L MCV 88 MCH 29.2 MCHC 33.2 RDW Std Deviation 37.2 Plt Count 167 Neut % (Auto) 58 Lymph % (Auto) 29 [place] % (Auto) 7 Eos % (Auto) 6 Baso % (Auto) 0 Neut # (Auto) 3.9 Lymph # (Auto) 2.0 [place] # (Auto) 0.5 Eos # (Auto) 0.4 Baso # (Auto) 0.0 Immature Gran # (Auto) 0.02 H Absolute Nucleated RBC 0.00 Immature Gran % 0 Nucleated RBC % 0 Sodium 138 Potassium 4.2 Chloride 100 Carbon Dioxide 30.0 Anion Gap 8 BUN 27 H Creatinine 1.2 D Estim Creat Clear Calc 56.6 L eGFR 51 L BUN/Creatinine Ratio 23 H Glucose 249 H D Calculated Osmolality 288 Calcium 8.9 Corrected Calcium 9.0 Phosphorus 2.4 Magnesium 2.3 Total Bilirubin < 0.2 L AST 35 H ALT 25 Alkaline Phosphatase 63 B-Natriuretic Peptide 26 Total Protein 6.3 Albumin 3.9 Globulin 2.4 Albumin/Globulin Ratio 1.6 Quality Measures Quality Measures sepsis Possible source: genitourinary Blood cultures ordered: yes Assessment & Plan Assessment Current Active Medications: Generic Name Dose Route Start Last Admin Trade Name Freq PRN Reason Stop Dose Admin Acetaminophen 650 mg 08/17/25 04:33 08/17/25 06:10 Acetaminophen 325 Mg Tablet PO 09/16/25 04:32 650 mg Q6H PRN Administration Fever >101.5 Dextrose 25 ml 08/17/25 04:42 Dextrose 50%-Water Inj 50 Ml Syringe IV 09/16/25 04:41 Q15MIN PRN BG 50-70 responsive npo pt Dextrose 50 ml 08/17/25 04:42 Dextrose 50%-Water Inj 50 Ml Syringe IV 09/16/25 04:41 Q15MIN PRN BG <50 OR BG <70 & pt unresponsive Diclofenac Sodium 4 gm 08/18/25 11:21 08/21/25 05:34 Diclofenac 1% Top Gel 100 Gm Tube TOP 09/17/25 13:59 4 gm TID PRN Administration Ankle Pain Protocol Erythromycin Ethylsuccinate 250 mg 08/20/25 11:30 08/22/25 12:43 Erythromycin E-Succ Susp 200 Mg/5 Ml PO 08/27/25 11:29 250 mg AC RAYO Administration Gabapentin 600 mg 08/17/25 14:00 08/22/25 14:05 Gabapentin 300 Mg Capsule PO 09/16/25 13:59 600 mg TID RAYO Administration Glucagon 1 mg 08/17/25 04:42 Glucagon Inj 1 Mg Vial IM Q15MIN PRN BG <70, and no IV access Heparin Sodium (Porcine) 5,000 unit 08/20/25 21:00 08/22/25 09:45 Heparin Sod Inj 5000 Unit/Ml Vial SC 09/03/25 20:59 5,000 unit Q12HR RAYO Administration Ceftriaxone Sodium/Dextrose 2 gm in 50 mls @ 100 mls/hr 08/18/25 11:04 08/22/25 09:38 Rocephin/D5w 2gm IV 08/25/25 11:03 100 mls/hr QDAY RAYO Administration Insulin Degludec 40 unit 08/19/25 09:00 08/22/25 09:35 Insulin Degludec 5 Unit/0.05 Ml (Per 5 Units) SC 09/18/25 08:59 40 unit QDAY RAYO Administration Insulin Human Lispro 10 unit 08/22/25 07:30 08/22/25 12:12 Insulin Lispro (Admelog) 1 Unit/0.01 Ml Unit SC 09/21/25 07:29 10 unit AC RAYO Administration Insulin Human Lispro 0 unit 08/21/25 18:14 08/22/25 12:13 Insulin Lispro (Admelog) 1 Unit/0.01 Ml Unit SC 09/19/25 11:29 4 unit AC RAYO Administration Protocol Labetalol HCl 10 mg 08/17/25 16:27 08/22/25 14:17 Labetalol Inj 5 Mg/Ml Vial 20 Ml IVP 09/16/25 17:59 10 mg Q2HR PRN Administration BP >180/105 and HR >70 Lisinopril 40 mg 08/18/25 09:00 08/22/25 09:42 Lisinopril 20 Mg Tablet PO 09/17/25 08:59 40 mg QDAY RAYO Administration Magnesium Hydroxide 30 ml 08/17/25 04:38 08/20/25 09:32 Milk Of Magnesia Susp 30 Ml Udc PO 09/16/25 04:37 30 ml QDAY PRN Administration CONSTIPATION Protocol Memantine 5 mg 08/17/25 09:00 08/22/25 09:41 Memantine Hcl 5 Mg Tablet PO 09/16/25 08:59 5 mg BID RAYO Administration Nortriptyline HCl 25 mg 08/17/25 09:00 08/22/25 09:41 Nortriptyline Hcl 25 Mg Capsule PO 09/16/25 08:59 25 mg QDAY RAYO Administration Ondansetron HCl 4 mg 08/17/25 04:38 08/19/25 02:35 Ondansetron Inj 2 Mg/Ml Inj 2 Ml IVP 09/16/25 04:37 4 mg Q6H PRN Administration NAUSEA OR VOMITING Protocol Polyethylene Glycol 34 gm 08/20/25 14:30 08/22/25 09:40 Polyethylene Glycol 17 Gm Packet PO 09/19/25 14:29 34 gm QDAY RAYO Administration Quetiapine Fumarate 200 mg 08/17/25 09:00 08/22/25 09:41 Quetiapine Fumarate 100 Mg Tablet PO 09/16/25 08:59 200 mg BID RAYO Administration Sennosides 2 tab 08/20/25 14:30 Senna/Docusate Sod 1 Tab Tablet PO 09/19/25 14:29 QDAY PRN CONSTIPATION Protocol Tramadol HCl 50 mg 08/18/25 11:24 08/21/25 13:15 Tramadol Hcl 50 Mg Tablet PO 08/23/25 11:23 50 mg Q6HR PRN Administration PAIN SCALE 4-10(Mod-Sev
--- NOTE | 2025-08-22 15:12 | ESDS_ITS ---
<Statement entered by Min Schuler MD - 08/23/25 16:23> Patient was seen and examined by me personally. I have reviewed the below documentation by the team resident and agree with its findings. Discharge plan was discussed with the attending, Dr. Bob Kyle MD Internal Medicine, PGY-2 Planned Discharge Date 08/22/25 DS: Providers Provider Date of admission: 08/17/25 04:33 Primary care physician: Duglas Dunaway MD Admitting Provider: Rudi Jones MD Attending Provider on Admission: Bob Kumar DO Consults: 08/17/25 07:52 Referral Physical Therapy Routine Comment: Physician Instructions: Attending Provider on DC: Bob Kumar DO Discharging Provider: Shivam Davalos DO DS: Diagnosis Problem List Completed Was Problem List Reviewed/Reconciled?: Yes Hospital Course Hospital Course Hospital course: Patient is a 64-year-old female with past medical history of 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 Noted swelling over the right ankle area and tenderness to palpation of right ankle and knee and left ankle. Urinalysis showed cloudiness, WBC 570, and positive leukocyte esterase. Additionally noted ANASTASIA for endorgan dysfunction with creatinine elevated to 1.3 from a baseline of 0.9. Patient met sepsis criteria and weight-based treatment with IV fluid was initiated. Started on IV maintenance fluids. Patient started on ceftriaxone 1 g daily while pending blood and urine cultures. Patient carried diagnosis of vascular dementia with or without behavioral disturbances and was continued on her home dose of quetiapine after confirmation with her PCP. When blood cultures came back positive for GNR in 1 out of 2 bottles, ceftriaxone was increased to 2 g daily. To maintain blood glucose levels in the range of 140-200 patient started on home degludec and sliding scale insulin. On 08/19 patient developed abdominal distention, vomiting, NG tube was placed with immediate suction of 800 mL lof fluids. As subsequent imaging revealed significant constipation, bowel regiment was adjusted to include lactulose, senna, docusate as well as MiraLAX. In the context of elevated blood sugars in mid 300s, erythromycin 250 mg with meals was prescribed with further increments in basal and bolus insulin. On 08/21/2025 Creatinine trending up to 1.8 from 1.6 today before and patient was challenged with half liter of normal saline which resulted in normalization of creatinine by 08/22. Patient generated bowel movement with aforementioned laxatives and optimization of blood glucose levels on 08/21. Her ankle sprain continued to improve with marked reduction in pain, erythema, and swelling. By 08/22, patient had been treated for probable bacteremia in the setting of complicated UTI as both urine and blood cultures had speciated into the same organism E. coli. Patient remained afebrile and will take an additional day of Levaquin to complete a full 7-day course of antibiotic treatment. At the time of discharge, patient is medically stable and deemed safe to return to his/her previous state of living. Admission diagnosis: #Pyelonephritis #Complicated urinary tract infection, E. coli UTI #Sepsis secondary to UTI, improving #E. 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 Please return to the ED if you develop new or worsening symptoms. Please follow up with your primary doctor in 7-10 days. Continue to optimize diabetes mangement, recommend referral to endocrinolgy. This case was discussed with my attending physician, Dr. Kumar, and senior resident, Dr Schuler. Shivam Davalos, DO PGY I Time Spent with Patient Time attestation: Total time spent providing and/or coordinating discharge services: More than 50% of the patient's total hospital stay Time spent: Greater than 30 minutes Exam Vital Signs Temp Pulse Resp BP Pulse Ox O2 Del Method O2 Flow Rate 97.4 F 97 18 194/100 H 97 Room Air 1 08/22/25 12:00 08/22/25 14:17 08/22/25 12:00 08/22/25 14:17 08/22/25 12:00 08/22/25 12:00 08/21/25 07:06 Narrative Exam GENERAL: Awake, answering questions appropriately HEENT: NC/AT. Moist mucosa. PERRLA/EOMI. CARDIO: Heart RRR, no obvious murmurs, no JVD. PULM: No coughing or visible SOB. Lungs CTA B/L. GI: Abdomen soft, nontender, distended, +BS present but diminished, percussion tympanic throughout all quadrants. SKIN/MSK/EXT: Right ankle swollen, erythematous, with pain on palpation. Lower back tenderness diffusely. No wounds/discoloration/rashes/edema/amputations noted. +Pedal pulses present B/L. NEURO: Oriented x3, Moves extremities x4, no focal neurologic deficits noted. Discharge Plan Plan Patient Disposition: Xfer Skilled Nsg Fac (SNF) Patient condition on transfer: Stable Care Plan Goals: You have been started on Keflex 4 times daily for 1 day Please take all other medications as previously prescribed. Please return to the ED if you develop new or worsening symptoms. Please follow up with your primary doctor in 7-10 days. Continue to optimize diabetes mangement, recommend referral to endocrinolgy. Prescriptions/Referrals Prescriptions/Med Rec: New cephalexin 500 mg capsule 500 mg PO QID 1 Days Qty: 4 0RF Rx Instructions: Completing 7 day course Continued furosemide 40 mg tablet 20 mg PO DAILY meloxicam 7.5 mg tablet 7.5 mg PO QDAY PRN (Reason: pain) Qty: 10 0RF nortriptyline 25 mg capsule 25 mg PO QPM Patient Comments: TAKE ONE CAPSULE BY MOUTH SEVEN IN THE EVENING gabapentin 600 mg tablet 600 mg PO TID Patient Comments: TAKE ONE TABLET BY MOUTH THREE TIMES DAILY FOR NERVE PAIN donepezil 10 mg tablet 10 mg PO HS Patient Comments: TAKE ONE TABLET BY MOUTH AT BEDTIME lisinopril 40 mg tablet 40 mg PO QDAY Patient Comments: TAKE ONE TABLET BY MOUTH EVERY DAY FOR BLOOD PRESSURE quetiapine 200 mg tablet 200 mg PO BID Patient Comments: TAKE ONE TABLET BY MOUTH TWICE DAILY acetaminophen 325 mg tablet 650 mg PO BID PRN (Reason: pain) Patient Comments: TAKE TWO TABLETS BY MOUTH TWICE DAILY NEEDED FOR PAIN atorvastatin 40 mg tablet 40 mg PO HS Patient Comments: TAKE ONE TABLET BY MOUTH AT BEDTIME FOR CHOLESTEROL potassium chloride 8 mEq tablet extended release 8 meq PO QPM Patient Comments: TAKE ONE TABLET BY MOUTH EVERY EVENING insulin glargine [Lantus U-100 Insulin] 100 unit/mL Solution 63 unit subcut HS pantoprazole 40 mg tablet,delayed release (DR/EC) 40 mg PO DAILY Patient Comments: TAKE ONE TABLET BY MOUTH EVERY DAY Humulin R Regular U-100 Insuln 100 unit/mL Solution 14 unit subcut TIDWM Qty: 10 1RF (DME) blood-glucose meter [Accu-Chek Guide Glucose Meter] Misc See Rx Instructions .Route Qty: 1 0RF Rx Instructions: As directed (DME) Accu-Chek Guide test strips Strip See Rx Instructions .Route Qty: 100 0RF Rx Instructions: As directed (DME) lancing device with lancets [Accu-Chek Multiclix Lancet] Kit See Rx Instructions .Route Qty: 1 0RF Rx Instructions: As directed memantine 5 mg tablet 5 mg PO BID Qty: 60 0RF Discontinued trazodone 100 mg tablet 150 mg PO HS hydrocodone-acetaminophen 5-325 mg tablet 1 tab PO Q6HR PRN (Reason: Pain (Scale Score 4-6)) Referrals: Duglas Dunaway MD [Primary Care Provider, Family Practice] Patient/Caregiver Discharge Instructions Discharge Activity: activity as tolerated Education Materials: Urinary Tract Infections in Women, Complementary Care for Pain, Communicating About Pain, Chronic Pain Therapies Mind Body Print Language: [place] Island[place] Stand Alone Forms: Gertrudis Award Info., Patient Portal Info Letter Discharge Order Discharge Orders: Discharge (Routine); Ordered 08/22/25 Ordered By: Brock Jon Quality Discharge Quality Measures VTE prophylaxis Attestestation MD Attestation I have discussed and was present for the essential components of the discharge history, physical examination, diagnosis, and discharge treatment plan with the resident. I agree with the patient's discharge care as documented by the resident and amended herein by me. Damien Kumar DO. The patient understood all discharge instructions, all questions were answered satisfactorily. The patient was instructed to return to the Emergency Department is symptoms worsened or persisted. Patient stable, afebrile and tolerating p.o. intake prior to discharge to SNF. Patient will be discharged with a short course of Keflex to complete course for bacteremia and UTI. See resident note above for additional details in regards to hospital stay. Although this document has been carefully reviewed, there may still be some phonetic and other typographical errors. These errors are purely grammatical due to imperfections in the software program and should not be construed in any way to compromise the substance of the patient's medical care during this visit.
--- NOTE | 2025-08-22 16:41 | PC.SS ---
SS has setup gurney transportation with [employer] from [facility] for 6pm to [facility].? Ref# [id number].? SS has requested [facility].? Per [facility] termite control representative, [facility] is not a guaranteed transport company.? Estimated time is 3-4 hours.? SS has sent patient?s facesheet and ambulance form to [facility] using [employer].? SS has spoken to at [facility] who has placed pt on will call list until she has been contacted by [facility]. Bedside nurse, May is aware. Avis CAUSEY is aware. Pt and son are aware. Liys from [facility] is aware.
== END 2025-08-22 23:17 | disposition skilled nursing facility (03) | DRG 872 ==
LOC: SERX 08-17 01:06 → SERHOLD 08-17 05:30 → S3SX 08-17 09:17
PROVIDERS: Admitting Provider Student in an Organized Health Care Education/Training Program; Emergency Provider Emergency Medicine; PCP Family Medicine; Visit Provider Student in an Organized Health Care Education/Training Program
DX: A41.51 Sepsis due to Escherichia coli [E. coli] (principal); N39.0 Urinary tract infection, site not specified; I50.42 Chronic combined systolic (congestive) and diastolic (congestive) heart failure; N17.9 Acute kidney failure, unspecified; N12 Tubulo-interstitial nephritis, not specified as acute or chronic; E87.20 Acidosis, unspecified; F02.818 Dementia in other diseases classified elsewhere, unspecified severity, with other behavioral disturbance; F01.53 Vascular dementia, unspecified severity, with mood disturbance; F01.518 Vascular dementia, unspecified severity, with other behavioral disturbance; A41.9 Sepsis, unspecified organism; G30.9 Alzheimer's disease, unspecified; F17.210 Nicotine dependence, cigarettes, uncomplicated; E11.65 Type 2 diabetes mellitus with hyperglycemia; E78.5 Hyperlipidemia, unspecified; E11.43 Type 2 diabetes mellitus with diabetic autonomic (poly)neuropathy; M32.9 Systemic lupus erythematosus, unspecified; I16.0 Hypertensive urgency; S93.409A Sprain of unspecified ligament of unspecified ankle, initial encounter; W19.XXXA Unspecified fall, initial encounter; I11.0 Hypertensive heart disease with heart failure; K31.89 Other diseases of stomach and duodenum; K59.00 Constipation, unspecified; M85.80 Other specified disorders of bone density and structure, unspecified site; K31.84 Gastroparesis; F32.A Depression, unspecified; S96.911A Strain of unspecified muscle and tendon at ankle and foot level, right foot, initial encounter; W18.30XA Fall on same level, unspecified, initial encounter; Z79.4 Long term (current) use of insulin; Z79.899 Other long term (current) drug therapy; Z86.73 Personal history of transient ischemic attack (TIA), and cerebral infarction without residual deficits
CPT/HCPCS: 36415; 51702; 70450; 71045; 73630; 74018; 74176; 80053; 81001; 82436; 82728; 83036; 83540; 83550; 83605; 83735; 83880; 84100; 84133; 84156; 84300; 84484; 84540; 85025; 85046; 86331; 86635; 87040; 87077; 87086; 87186; 87502; 87634; 87811; 93005; 93225; 93306; 96361; 96365; 96375; 96376; 97162; 99284; A4314; J0696; J1644; J1650; J1815; J2405; J3475; J3490; J7120; J7999; A9270; J1920

== ENCOUNTER 2025-08-29 19:03 | Emergency (ER) | payer OTHER, MEDICAID, SELFPAY ==
[2025-08-29] VITALS (9 sets, daily range): BP systolic 117–210; BP diastolic 54–112; PULSE 78–113; RESP 12–100; TEMP 37.2; O2SAT 96–100; BMI 37.8
--- NOTE | 2025-08-29 19:26 | EKG_ITS ---
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
--- NOTE | 2025-08-29 19:29 | XR_ITS ---
Examination: CT brain head without contrast. 2-D sagittal coronal reconstructions Date and time of exam: August 29, 2025, 2009 hours, comparison August 17, 2025 INDICATIONS: Patient fell today with injury to the head, followed by head pain altered mental status CTDI: vol (mGy): 58.3 DLP: (mGycm): 1174 Technique: Multiple CT axial sections of the brain have been obtained, 5 mm slice thickness. Contrast has not been administered. 2-D sagittal, coronal reconstructions have been obtained Low dose protocols were performed. One or more of the following dose reduction techniques were used; automated exposure control, adjustment of the mA and/or KV according to patient size, use of iterative reconstruction technique. Findings: No significant ventricular enlargement. Again noted right cerebellar encephalomalacia Intra-axial or extra-axial hemorrhage density is not seen. No mass effect or midline shift Basal cisterns are not remarkable. Fourth ventricle is midline. Cranial vault intact. Impression: Negative for acute hemorrhage, mass effect or midline shift
--- NOTE | 2025-08-29 19:40 | PD.EDAMS ---
Altered Mental Status RME/HPI General Chief Complaint: Altered Mental Status Stated Complaint: ALTERED MENTAL STATUS Time Seen by Provider: 08/29/25 19:15 Arrival date/time: 08/29/25 19:03 RME / HPI RME / HPI narrative: cc: Altered mental status Patient is a 64-year-old female with a past medical history of diabetes mellitus type 2 [id number], history CVA, history of vascular dementia, chronic low back pain,, history of CKD, history of CHF HFrEF 40 to 45% (08/29/2025), GERD, hx of depression who presented who presented from [facility] with chief complain of altered mental status noted this evening. Per SNF, [facility], and has nurse noted and change in mentation as patient as patient appeared more confused and unable to answer name location or date. Recently has been treated for urinary tract infection on 08/17/2025. Facility was concerned patient was self-medicating with additional narcotics found in patient's bag. SNF denied any falls or head trauma. No fevers and no chills. No sick contacts. Patient complaining of right leg pain. Patient's son, updated w/ patient's labs and image findings, as requested prior to being sent to SNF. Related Data Home Medications ?Medication ?Instructions ?Recorded ?Confirmed pantoprazole 40 mg tablet,delayed 40 mg PO DAILY 10/05/22 08/17/25 release acetaminophen 325 mg tablet 650 mg PO BID PRN pain 08/17/25 08/17/25 atorvastatin 40 mg tablet 40 mg PO HS 08/17/25 08/17/25 donepezil 10 mg tablet 10 mg PO HS 08/17/25 08/17/25 gabapentin 600 mg tablet 600 mg PO TID 08/17/25 08/17/25 insulin glargine 100 unit/mL 63 unit subcut HS 08/17/25 08/17/25 subcutaneous solution (Lantus U-100 Insulin) lisinopril 40 mg tablet 40 mg PO QDAY 08/17/25 08/17/25 nortriptyline 25 mg capsule 25 mg PO QPM 08/17/25 08/17/25 potassium chloride 8 mEq 8 meq PO QPM 08/17/25 08/17/25 tablet,extended release Held on 08/30/25. Instructions: Resume on 09/07/25. Please hold as your potassium was elevated Previous Rx's ?Medication ?Instructions ?Recorded blood sugar diagnostic (Accu-Chek #100 ea 02/18/24 Guide test strips) blood-glucose meter (Accu-Chek #1 ea 02/18/24 Guide Glucose Meter) insulin regular human 100 unit/mL 14 unit (0.14 mL) subcut TIDWM #10 02/18/24 injection solution (Humulin R mL Regular U-100 Insulin) lancing device with lancets kit #1 ea 02/18/24 (Accu-Chek Multiclix Lancet kit) memantine 5 mg tablet 5 mg PO BID #60 tabs 02/18/24 meloxicam 7.5 mg tablet 7.5 mg PO QDAY PRN pain #10 tabs 03/19/25 Allergies Allergy/AdvReac Type Severity Reaction Status Date / Time Penicillins Allergy Verified 08/16/25 22:53 ED Exam Narrative Physical exam: General Appearance: Alert & Oriented X1, well-nourished female who is lying in bed in mild distress, secondary to pain at right ankle and right hip HEENT: Skull symmetrical and atraumatic. Conjunctivae pale and moist. Pupils equal, round, reactive to light and accommodation (PERRL). External ear without lesion or discharge. Straight, nares patient, mucosa pink, no discharge. No thyroid nodule appreciated. No cervical lymphadenopathy. Cardio: Normal Rate and Rhythm with S1 and S2 heart sounds. No murmurs or extra heart sounds auscultated. No bruits on carotid auscultation. No peripheral edema or cyanosis. Lungs: Symmetric with good expansion. Chest and back non-tender. Breath sounds vesicular without crackles, wheezing or rhonchi Abdomen: Non-tender, Non-distended, Normal Reactive Bowel Sounds Neuro: Yes Alert, No cooperative, Yes oriented to person, NO place, and No time. CN grossly intact. Upper motor strength 5/5 and Lower motor strength 3/5. Sensation intact. Course Quality Measures none Orders Category Date Time Status Bedside Blood Glucose NOW Care 08/29/25 19:26 Active Bedside Blood Glucose NOW Care 08/30/25 01:15 Active Bedside COVID-19 Antigen Test NOW Care 08/29/25 20:[address] Screening NOW Care 08/29/25 19:[address] Screening NOW Care 08/29/25 21:[address] Screening NOW Care 08/29/25 21:54 Active Maintenance Operator Q4H START 00 Care 08/29/25 19:26 Active Continuous Pulse Oximetry NOW Care 08/29/25 19:26 Completed EKG (ED ONLY) *Do not use* NOW Care 08/29/25 19:26 Completed Miscellaneous Nursing Order X1 Care 08/29/25 21:37 Active NPO NOW Care 08/29/25 19:26 Active Nurse Swallow Screen X1 Care 08/29/25 21:37 Active Saline [Insert IV] NOW Care 08/29/25 20:03 Active Straight [In and Out Catheter] X1 Care 08/29/25 20:[address] abdomen pelvis w con Stat Exams 08/29/25 21:[address] head/brain wo con Stat Exams 08/29/25 19:29 Completed EKG (ED Only) Stat Exams 08/29/25 19:26 Draft US venous doppler LE BI Stat Exams 08/29/25 23:13 Completed XR ankle comp RT min 3V Stat Exams 08/29/25 21:54 Completed XR chest 1V portable Stat Exams 08/29/25 20:04 Completed XR femur BI min 2V Stat Exams 08/29/25 19:55 Completed XR foot comp RT min 3V Stat Exams 08/29/25 19:55 Completed XR tibia fibula RT 2V Stat Exams 08/29/25 19:57 Completed ABG [Arterial Blood Gas] Stat Lab 08/29/25 20:32 Completed Ammonia Stat Lab 08/29/25 19:44 Completed BMP [Basic Metabolic Panel] Stat Lab 08/30/25 02:46 Ordered BNP [B-Type Natriuretic Peptide] Stat Lab 08/29/25 19:40 Completed Beta Hydroxybutyrate Stat Lab 08/29/25 19:40 Completed Bilirubin,Direct Stat Lab 08/29/25 19:40 Completed Blood Culture (Lab) Stat Lab 08/29/25 19:40 Received C-Reactive Protein Stat Lab 08/29/25 19:40 Completed CBC AM DRAW Lab 08/31/25 05:00 Ordered CBC Stat Lab 08/29/25 22:13 Completed Comprehensive Metabolic Panel Stat Lab 08/29/25 19:40 Completed D-Dimer Stat Lab 08/29/25 19:40 Completed Drug Screen,Urine Stat Lab 08/30/25 00:24 Completed ESR [Sed Rate (ESR)] Stat Lab 08/29/25 19:40 Completed Free T4 (Free Thyroxine) Stat Lab 08/29/25 19:40 Completed Hemoglobin A1C [Glycohemoglobin w (eAG)] Stat Lab 08/29/25 19:40 Completed Influenza A & B Rapid Panel Stat Lab 08/30/25 00:24 Completed Lactate (Lactic Acid) Stat Lab 08/29/25 19:40 Completed Magnesium Stat Lab 08/29/25 19:40 Completed Potassium Stat Lab 08/29/25 23:31 Completed Procalcitonin Stat Lab 08/29/25 19:40 Completed Renal Function Panel AM DRAW Lab 08/30/25 05:00 Ordered Thyroid Stimulating Hormone Stat Lab 08/29/25 19:40 Completed Troponin I Stat Lab 08/29/25 19:40 Completed Uric Acid Stat Lab 08/29/25 19:40 Completed Urinalysis, C/S if Indicated Stat Lab 08/30/25 00:24 Completed Furosemide Inj [Lasix Inj] Med 08/29/25 23:11 Discontinued 40 mg IVP X1 ONE INSULIN LISPRO (AdmeLOG) [HumaLOG] Med 08/30/25 00:26 Discontinued 5 unit SC X1 ONE Insulin Regular Med 08/29/25 23:30 Discontinued 5 unit IV X1 ONE Insulin Regular Med 08/30/25 01:15 Discontinued 5 unit IV X1 ONE Morphine* Inj Med 08/29/25 19:32 Discontinued 2 mg IVP X1 ONE Ondansetron Inj [Zofran Inj] Med 08/29/25 19:47 Discontinued 4 mg IVP X1 ONE Sodium Chloride 0.9% 1000 ml [Ns] 1,000 ml Med 08/29/25 20:17 Discontinued IV 999 mls/hr Oxygen Delivery NOW RT 08/29/25 19:26 Active Vital Signs Vital signs: Vital Signs Temperature 99 F 08/29/25 19:11 Pulse Rate 111 H 08/29/25 19:11 Respiratory Rate 18 08/29/25 19:11 Blood Pressure 117/54 L 08/29/25 19:11 Pulse Oximetry (%) 96 08/29/25 19:11 Oxygen Delivery Method Room Air 08/29/25 19:11 Altered Mental Status Patient data External records reviewed:: [facility] previous records and Longterm records Clinical information provided by:: patient and family Social determinants that could affect healthcare access:: none Patient has the following chronic illnesses:: diabetes mellitus type 2 [id number], history CVA, history of vascular dementia, chronic low back pain,, history of CKD, history of CHF HFrEF 40 to 45% (08/29/2025), GERD, hx of depression How is presenting disease/condition affected by chronic disease/condition?: exacerbated by (hx of chronic back pain ) Evaluation data The following diagnostics were reviewed and interpreted by me:: lab results and radiology exam(s) Lab and/or radiology exams considered but not ordered:: none Interpretation Summary: Patient is a 64-year-old female with a past medical history of diabetes mellitus type 2 [id number], history CVA, history of vascular dementia, chronic low back pain,, history of CKD, history of CHF HFrEF 40 to 45% (08/29/2025), GERD, hx of depression who presented with chief of complain of altered mental status likely secondary to Noroc use which was found in patient's possesions at SNF and patietn tested positive on Utox. ANASTASIA on CKD also noted but patient recieved one liter of NS and refused repeat renal panel. CT head negative. Chest x-ray negative. Tibia/Fibula x-ray and foot x-ray negative for any acute fractures. #Altered Mental Status, improved likely secondary to Opioids use #ANASTASIA on CKD #Hyperkalemia, secondary to potassium pills Medications / Prescriptions Medications or Prescriptions considered but not ordered:: None Medication administrations:: Medication Administration History Discontinued Medications Furosemide (Furosemide Inj 10 Mg/Ml 4ml Vial) 40 mg IVP X1 ONE Stop: 08/29/25 23:12 Last Admin: 08/29/25 23:25 Dose: 40 mg Documented By: MARINE Sodium Chloride (Ns) 1,000 mls @ 999 mls/hr IV .Q1H1M ONE Stop: 08/29/25 21:17 Last Infusion: 08/29/25 21:33 Dose: Infused Documented By: Admin: 08/29/25 20:30 Dose: 999 mls/hr Documented By: ROBERT Insulin Human Lispro (Insulin Lispro (Admelog) 1 Unit/0.01 Ml Unit) 5 unit SC X1 ONE Stop: 08/30/25 00:27 Last Admin: 08/30/25 00:39 Dose: Not Given Documented By: DT Non-Admin Reason: Duplicate Medication on eMAR Insulin Human Regular (Insulin Hum Regular 1 Unit/0.01 Ml (Per Unit)) 5 unit IV X1 ONE Stop: 08/29/25 23:31 Last Admin: 08/30/25 00:07 Dose: 5 unit Documented By: DT Co-signed By: MARINE Insulin Human Regular (Insulin Hum Regular 1 Unit/0.01 Ml (Per Unit)) 5 unit IV X1 ONE Stop: 08/30/25 01:16 Last Admin: 08/30/25 01:32 Dose: 5 unit Documented By: DT Co-signed By: MARINE Morphine Sulfate (Morphine Sulf Inj 4 Mg/Ml Vial) 2 mg IVP X1 ONE Stop: 08/29/25 19:33 Last Admin: 08/29/25 19:54 Dose: 2 mg Documented By: DT Ondansetron HCl (Ondansetron Inj 2 Mg/Ml Inj 2 Ml) 4 mg IVP X1 ONE; Protocol Stop: 08/29/25 19:48 Last Admin: 08/29/25 19:54 Dose: 4 mg Documented By: DT Same Consultations Consultation(s) initiated? (list below): No Diagnosis Differential diagnosis altered mental status: altered mental status, delirium and other (UTI vs poly-pharmacy ) Most likely diagnosis given after review of the tests above:: Patient is a 64-year-old female with a past medical history of diabetes mellitus type 2 [id number]-vikuzmrlv, history CVA, history of vascular dementia, chronic low back pain,, history of CKD, history of CHF HFrEF 40 to 45% (08/29/2025), GERD, hx of depression who presented with chief of complain of altered mental status likely secondary to Noroc use which was found in patient's possesions at SNF and patietn tested positive on Utox. ANASTASIA on CKD also noted but patient recieved one liter of NS and refused repeat renal panel. CT head negative. Chest x-ray negative. Tibia/Fibula x-ray and foot x-ray negative for any acute fractures. #Altered Mental Status, improved likely secondary to Opioid use #ANASTASIA on CKD #Hyperkalemia, secondary to potassium pills - The patient's plan was discussed with attending Dr. Mariama Moore MD PGY2 Internal Medicine Admission Indicated Admission indicated?: not indicated Explain why admission is indicated or not indicated:: Patient has returned back to baseline in terms of mentation and is now refusing all further treatment and labs. Admission Request Was there a request for admission?: Yes Admission Attestation Admission request attestation: Discussed case with Dr. Gale from Hospitalist service regarding admission. Discussed patients ED course, exam findings, labs, and radiology results. The Hospitalist DECLINES to accept the patient for admission. Disposition Plan Disposition Plan: Discharge Discharge Attestation Discharge Attestation: The patient and all family members were given an opportunity to ask questions and understood the discharge instructions. Discharge instructions specifically effects, indications for sooner follow up or return to the emergency department, and the expected course of current diagnosis. Patient condition: Stable Discharge Plan Plan Patient Disposition: Xfer Skilled Nsg Fac (SNF) Patient condition on transfer: Stable Health Concerns: Instructions: -Please limit opioid use as this likely contributed to patient's altered mental status and tested positive on urine toxicology -Please hold your potassium pills until you follow up with your primary care provider as your potassium was high in the ER. Please repeat renal labs with your primary care provider. -Please continue all your medication as prescribed -Please follow up with your primary care provider within one week of discharge -If your symptoms worsen,please seek immediate medical attention and return to your nearest emergency room -If you do not have a primary care provider, you may follow up at the [facility] at [address], [place] [address], Prescriptions/Referrals Prescriptions/Med Rec: Continued meloxicam 7.5 mg tablet 7.5 mg PO QDAY PRN (Reason: pain) Qty: 10 0RF nortriptyline 25 mg capsule 25 mg PO QPM Patient Comments: TAKE ONE CAPSULE BY MOUTH SEVEN IN THE EVENING gabapentin 600 mg tablet 600 mg PO TID Patient Comments: TAKE ONE TABLET BY MOUTH THREE TIMES DAILY FOR NERVE PAIN donepezil 10 mg tablet 10 mg PO HS Patient Comments: TAKE ONE TABLET BY MOUTH AT BEDTIME lisinopril 40 mg tablet 40 mg PO QDAY Patient Comments: TAKE ONE TABLET BY MOUTH EVERY DAY FOR BLOOD PRESSURE acetaminophen 325 mg tablet 650 mg PO BID PRN (Reason: pain) Patient Comments: TAKE TWO TABLETS BY MOUTH TWICE DAILY NEEDED FOR PAIN atorvastatin 40 mg tablet 40 mg PO HS Patient Comments: TAKE ONE TABLET BY MOUTH AT BEDTIME FOR CHOLESTEROL insulin glargine [Lantus U-100 Insulin] 100 unit/mL Solution 63 unit subcut HS pantoprazole 40 mg tablet,delayed release (DR/EC) 40 mg PO DAILY Patient Comments: TAKE ONE TABLET BY MOUTH EVERY DAY Humulin R Regular U-100 Insuln 100 unit/mL Solution 14 unit subcut TIDWM Qty: 10 1RF (DME) blood-glucose meter [Accu-Chek Guide Glucose Meter] Misc See Rx Instructions .Route Qty: 1 0RF Rx Instructions: As directed (DME) Accu-Chek Guide test strips Strip See Rx Instructions .Route Qty: 100 0RF Rx Instructions: As directed (DME) lancing device with lancets [Accu-Chek Multiclix Lancet] Kit See Rx Instructions .Route Qty: 1 0RF Rx Instructions: As directed memantine 5 mg tablet 5 mg PO BID Qty: 60 0RF Held potassium chloride 8 mEq tablet extended release 8 meq PO QPM Hold Instructions: Resume on 09/07/25. Please hold as your potassium was elevated Patient Comments: TAKE ONE TABLET BY MOUTH EVERY EVENING Discontinued furosemide 40 mg tablet 20 mg PO DAILY quetiapine 200 mg tablet 200 mg PO BID Patient Comments: TAKE ONE TABLET BY MOUTH TWICE DAILY Referrals: Duglas Pitts MD [Primary Care Provider, Family Practice] - In 1 week Problem List Clinical Impression: AMS (altered mental status), Acute hyperkalemia, ANASTASIA (acute kidney injury) Patient/Caregiver Discharge Instructions Education Materials: Acute Kidney Failure Dc, ED ALOC Print Language: Swedish Stand Alone Forms: [facility]rud[facility] Award Info., Patient Portal Info Letter
[2025-08-29] MEDS: ONDANSETRON INJ 2 MG/ML INJ 2 ML 4 MG IVP (19:54)
[2025-08-29] MEDS: MORPHINE SULF INJ 4 MG/ML VIAL 2 MG IVP (19:54)
--- NOTE | 2025-08-29 19:55 | XR_ITS ---
Examination: Foot, right, 3 views Technique: AP, oblique, lateral views foot, 3 views Date and time of exam: August 29, 2025, 2030 hours INDICATION: Foot pain today, altered mental status. FINDINGS: Severe osteopenia Prominent hallux valgus with bunion deformity Plantar posterior bony calcaneal spurs No acute fracture There is widening of the tibiotalar joint on the lateral side No cortical bone destruction IMPRESSION: Prominent hallux valgus bunion deformity Plantar posterior bony calcaneal spurs No acute fracture Recommend three-view ankle series follow-up to exclude subluxation at the tibiotalar joint
--- NOTE | 2025-08-29 19:55 | XR_ITS ---
EXAMINATION: Bilateral femurs 4 views TECHNIQUE: AP lateral right left femur 4 views Date and time: August 29, 2025, 2040 hours INDICATIONS: Leg pain today FINDINGS: Bilateral moderate hip osteoarthritis No hip or femoral shaft fracture Bilateral moderate to advanced tricompartment osteoarthritis knees No cortical bone destruction IMPRESSION: No acute fractures Bilateral moderate hip osteoarthritis Bilateral moderate to advanced tricompartment knee osteoarthritis
--- NOTE | 2025-08-29 19:57 | XR_ITS ---
Examination: Tibia-Fibula, right, 2 views Technique: Tibia-fibula AP lateral 2 views Date and time of exam: August 29, 2025, 2030 hours INDICATIONS: Lower leg pain today. FINDINGS: Prominent osteopenia Old appearing bone densities at the fibular tip but clinical correlation advised Widening of the tibiotalar joint laterally on the AP view IMPRESSION: Recommend three-view ankle series follow-up to exclude subluxation of the tibiotalar joint
--- NOTE | 2025-08-29 20:04 | XR_ITS ---
EXAMINATION: AP chest single view TECHNIQUE: AP portable semiupright chest single view Date and time: August 29, 2025, 2040 hours, comparison August 19, 2025 INDICATIONS: Shortness of breath altered mental status today. FINDINGS: Findings suspicious for early heart failure Enlarged cardiac contour with prominent vascular congestion including central vascular engorgement Suspicious for early septal edema at the lung bases IMPRESSION: Suspicious for early heart failure
[2025-08-29 20:09] LABS: Ammonia 15 uMol/L (11-32)
[2025-08-29 20:13] LABS: Thyroid Stimulating Hormone 0.41 uIU/mL (0.55-4.78); Troponin I < 0.020 ng/mL (0.0-0.045)
[2025-08-29 20:24] LABS: Lactate (Lactic Acid) 1.4 mMol/L (0.4-2.0)
[2025-08-29 20:27] LABS: Beta Hydroxybutyrate 0.0 mmol/L (<0.6)
[2025-08-29] MEDS: SODIUM CHLORIDE 0.9% 1000 ML 1,000 ML 999 ML IV (20:30)
[2025-08-29 20:31] LABS: Sed Rate (ESR) 51 mm/hr (0-30)
[2025-08-29 20:36] LABS: Base Excess -3 (-3-3); HCO3 24 mEq/L (20-26); Inspired O2, VO2 Liters 2 L/min; O2 Saturation 97 % (91-98); PCO2 50 mmHg (32.0-48.0); PO2 90 mmHg (83-108); pH, Arterial 7.29 (7.35-7.45)
[2025-08-29 20:37] LABS: Allen Test Performed/OK; Puncture Site Right Radial
[2025-08-29 20:46] LABS: D-Dimer 837 ng/mL (<600)
--- NOTE | 2025-08-29 21:00 | PC.NURSE ---
THIS RN ENTERED PATIENT ROOM. PATIENT SON AT BEDSIDE VISITING PATIENT. THIS RN UPDATED PATIENT AND PATIENT FAMILY AT BEDSIDE ON PATIENT CARE. PATIENT YELLING FUCK YOU. I TOLD YOU DONT TOUCH ME. . THIS RN INFORMED PATIENT AND FAMILY PATIENT WAS PROVIDED MORPHINE FOR PAIN. PER PATIENT I DONT WANT YOU IN HERE. I DONT WANT ANYONE TOUCHING ME. . THIS RN INFORMED PATIENT AND FAMILY AT BEDSIDE TO INFORM ME WHEN THEY ARE WANTING THIS RN AT BEDSIDE WHEN NO LONGER GOING TO YELL AND CURSE AT STAFF. . CALL LIGHT PROVIDED TO PATIENT, BED RAILS UP, BED IN LOWEST POSITION.
--- NOTE | 2025-08-29 21:20 | PC.NURSE ---
THIS RN INFORMED PROVIDER YAZAN PATIENT FAMILY AT BEDSIDE REQ TO SPEAK WITH PROVIDER.
--- NOTE | 2025-08-29 21:54 | XR_ITS ---
Examination: CT abdomen with intravenous contrast CT pelvis with intravenous contrast 2-D coronal reconstructions 2-D sagittal reconstructions Date and time of exam: August 30, 2025, 0107 hours INDICATIONS: Abdominal pain bilateral hip pain beginning today. CTDI: vol (mGy) 12.5 DLP: (mGycm) 693 Technique: Multiple axial sections of the abdomen and pelvis have been obtained. 64 slice high-resolution scanner used. 3 mm axial sections have been obtained, post intravenous injection 60 cc Isovue-370 2-D sagittal, coronal reconstructions obtained. Low dose protocols were performed. One or more of the following dose reduction techniques were used; automated exposure control, adjustment of the mA and/or KV according to patient size, use of iterative reconstruction technique. Findings: No focal liver or splenic lesion Cholelithiasis No pancreatic mass 12 mm indeterminate left adrenal nodule No renal calculi or hydronephrosis Aorta normal size No bowel obstruction There are few fluid distended small bowel loops Normal appendix No diverticulitis Atrophic uterus No pelvic mass Bladder intact Mild pelvic floor prolapse IMPRESSION: Cholelithiasis, consider hepatobiliary sonography follow-up 12 mm indeterminate left adrenal nodule, consider MRI abdomen adrenal glands follow-up pre and postcontrast
--- NOTE | 2025-08-29 21:54 | XR_ITS ---
EXAMINATION: Ankle, right 3 views. Technique: Ankle AP, oblique, lateral 3 views Date and time of exam: August 29, 2025, 10:00 p.m. INDICATIONS: Patient fell today with injury to the ankle, ankle pain. FINDINGS: Moderate narrowing tibiotalar joint Prominent osteopenia Widening of the lateral tibiotalar joint on the AP view IMPRESSION: No fracture Suspicious for mild subluxation at the tibiotalar joint, widening lateral joint space tibiotalar joint on the AP view
[2025-08-29 22:06] LABS: Glucose Estimated Average 240 mg/dL (80-131); Hemoglobin A1C 10.0 % Hgb (4.8-6.0)
[2025-08-29 22:18] LABS: B-Type Natriuretic Peptide < 20 pg/mL (0-100)
[2025-08-29 22:19] LABS: Basophils # (Auto) 0.0 Thou/mm3 (0.0-0.2); Basophils % (Auto) 0 % (0-2.5); Eosinophils # (Auto) 0.3 Thou/mm3 (0.0-0.5); Eosinophils % (Auto) 3 % (0-10); Hematocrit 31.5 % (36.0-46.0); Hemoglobin 10.3 g/dL (12.0-16.0); Immature Granulocytes Auto 0.03 Thou/mm3 (0.00-0.00); Lymphocytes # (Auto) 2.0 Thou/mm3 (1.0-4.8); Lymphocytes % (Auto) 23 % (10-50); Mean Corpuscular HGB Conc 32.7 g/dl (31.0-37.0); Mean Corpuscular Hemoglobin 29.3 pg (25.0-35.0); Mean Corpuscular Volume 90 fL (80-100); Monocytes # (Auto) 0.5 Thou/mm3 (0.0-0.8); Monocytes % (Auto) 6 % (0-12); Neutrophils # (Auto) 5.8 Thou/mm3 (1.8-7.7); Neutrophils % (Auto) 67 % (37-80); Nucleated Red Blood Cell # 0.00 Thou/mm3 (0.00-0.00); Nucleated Red Blood Cell % 0 /100 WBC (0); Platelet Count 230 Thou/mm3 (140-440); RDW Standard Deviation 38.5 fL (36.4-46.3); Red Blood Count 3.51 Miln/mm3 (4.00-5.20); White Blood Count 8.6 Thou/mm3 (3.6-11.0)
[2025-08-29 22:23] LABS: Free T4 (Free Thyroxine) 1.11 ng/dL (0.89-1.76)
[2025-08-29 23:10] LABS: Bilirubin,Direct < 0.1 mg/dL (0.0-0.3); Magnesium 1.7 mg/dL (1.6-2.6); Procalcitonin 0.07 ng/ml (0.0-0.49); Uric Acid 7.5 mg/dL (3.1-7.8)
--- NOTE | 2025-08-29 23:13 | XR_ITS ---
Examination: Venous duplex lower extremity sonogram, bilateral. Date and time of exam: August 29, 2025, 1112 hours Indications leg swelling and pain this week with elevated D-dimer today Technique: Multiple sonographic images of the deep venous system have been obtained. B-mode/2-D grayscale imaging of vascular structures and Doppler spectral analysis (waveforms) and color performed Both legs are examined. Findings: Deep venous systems do not demonstrate abnormal echogenicity. All visualized deep veins exhibit compressibility. All visualized deep veins exhibit augmentation. Impression: Negative for deep vein thrombosis
[2025-08-29] MEDS: FUROSEMIDE INJ 10 MG/ML 4ML VIAL 40 MG IVP (23:25)
[2025-08-29 23:28] LABS: Alanine Aminotransferase 24 U/L (10-49); Albumin, Serum 3.8 gm/dL (3.4-4.8); Albumin/Globulin Ratio 1.5 (1.2-2.2); Alkaline Phosphatase 80 U/L (46-116); Anion Gap 10 (7-16); Aspartate Amino Transferase 21 U/L (0-34); BUN/Creatinine Ratio 23 Ratio (12-20); Bilirubin,Total 0.2 mg/dL (0.3-1.2); Blood Urea Nitrogen 36 mg/dL (9-23); C-Reactive Protein 1.5 mg/dL (0.0-0.9); Calcium 8.9 mg/dL (8.3-10.6); Calcium (Corrected) 9.1 mg/dL (8.5-10.1); Carbon Dioxide 22.4 mMol/L (20.0-31.0); Chloride 102 mMol/L (98-107); Creatinine (Component) 1.6 mg/dL (0.6-1.3); Estimated Creatinine Clearance 40.8 mL/min (>60); Globulin 2.6 gm/dL (2.3-3.5); Glucose 344 mg/dL (74-106); Osmolality,Calculated 290 (275-295); Potassium 5.6 mMol/L (3.4-5.1); Sodium 134 mMol/L (136-145); Total Protein 6.4 gm/dL (5.7-8.2); eGFR 36 See Note
[2025-08-30] VITALS (7 sets, daily range): BP systolic 122–140; BP diastolic 80–96; PULSE 100–107; RESP 12–16; TEMP 37–37.2; O2SAT 95–100
--- NOTE | 2025-08-30 | XR_ITS ---
Examination: CTA chest with intravenous contrast 2-D reconstructions 3-D reconstructions, vascular Date and time of exam: August 30, 2025, 0107 hours INDICATIONS: Onset chest pain shortness of breath today CTDI: vol (mGy) 11.9 DLP: (mGycm) 388 Technique: Multiple axial sections of the thorax have been obtained. 3 mm slice thickness, from below the hemidiaphragms to above the apices of the lungs. Mediastinal and lung density settings have been obtained. 2-D sagittal and coronal reconstructions. 3-D angiographic renderings, 3-D volume renderings, 3D post processing, vascular maximum intensity projections obtained. Contrast administered is 50 cc Isovue-300 Low dose protocols were performed. One or more of the following dose reduction techniques were used; automated exposure control, adjustment of the mA and/or KV according to patient size, use of iterative reconstruction technique. Findings: No thoracic aortic aneurysm dilatation There is no diagnostic opacification of the pulmonary arterial system Significant calcification left anterior descending coronary artery 19 mm pulmonary nodule right upper lobe No lobar pneumonia or pulmonary edema IMPRESSION: This is a nondiagnostic study for pulmonary artery emboli, very poor opacification of the pulmonary arteries, contrast bolus timing error 19 mm pulmonary nodule right upper lobe, 6-month follow-up CT suggested
[2025-08-30] MEDS: INSULIN HUM REGULAR 1 UNIT/0.01 ML (PER UNIT) 5 UNIT IV ×2 (00:07→01:32)
[2025-08-30 00:27] LABS: Potassium 5.4 mMol/L (3.4-5.1)
[2025-08-30 00:34] LABS: Collection Type, Urine Clean Catch
[2025-08-30 00:48] LABS: Bilirubin,Urine Negative (Negative); Blood,Urine Trace-Intact (Negative); Clarity,Urine Clear (Clear/Hazy); Color,Urine Yellow (Lt Yel-Yel); Culture Indicated,Urine Not Indicated; Glucose, Urine 1+ (Negative); Ketones,Urine Negative (Negative); Leukocyte Esterase,Urine Trace (Negative); Nitrite,Urine Negative (Negative); PH,Urine 5.5 (5.0-7.0); Protein,Urine 1+ (Neg - Trace); Specific Gravity,Urine 1.020 (1.001-1.035); Urobilinogen,Urine 0.2 mg/dL (0.0-1.0)
[2025-08-30 00:50] LABS: Bacteria,Urine Rare
[2025-08-30 00:52] LABS: Mucus,Urine Rare /lpf; RBC,Urine 4 /hpf (0-3); Squamous Epithelial Cell,Urine 25 /hpf (0-5); WBC,Urine 8 /hpf (0-5)
[2025-08-30 00:57] LABS: Amphetamine/Methamp Scrn,U Negative (Negative); Barbiturate Screen,Urine Negative (Negative); Benzodiazepines Screen,Urine Negative (Negative); Benzoylecgonine Screen, Ur Negative (Negative); Fentanyl Screen,Urine Negative (Negative); Opiate Screen,Urine Positive (Negative); THC Screen,Urine Negative (Negative)
[2025-08-30 01:02] LABS: Influenza A Ag Negative; Influenza B Ag Negative
--- NOTE | 2025-08-30 02:25 | PC.NURSE ---
THIS RN ENTERED THE ROOM. PER PATIENT I HAVE TO GO TO THE BATHROOM. . PATIENT HAD A BOWEL MOVEMENT. PATIENT PROVIDED WITH KIRA-CARE AND LINEN CHANGE. BED IN LOWEST POSITION. CALL LIGHT IN REACH.
--- NOTE | 2025-08-30 02:40 | PRELIM_ITS ---
CT scan of the abdomen and pelvis with intravenous contrast (axial sections with sagittal and coronal reformats) August 30, 2025 at 0107 hours Clinical History: Bilateral hip pain. Comparison: None. Findings: The evaluation is slightly limited due to motion artifacts. Multiple calculi are noted within the gallbladder, without evidence of gallbladder wall thickening or pericholecystic fluid. Mild nonspecific perinephric fat stranding is noted bilaterally. There is a 1.2 cm left adrenal nodule with attenuation of 47 HU, of indeterminate etiology. The liver, pancreas and spleen are unremarkable. No evidence of bowel obstruction. There are occasional colonic diverticula without evidence of diverticulitis. A moderate amount of fecal material is present in the colon. The appendix is within normal limits (images [id number]). There is suggestion of pelvic floor laxity with possible rectocele. There is a small air loculus in the urinary bladder, which may be due to recent catheterization. The uterus is unremarkable. There is no free fluid, free air or abscess. The abdominal aorta demonstrates atheromatous calcification without evidence of aneurysm. There are bilateral inguinal hernias containing fat. Degenerative changes are identified in the spine. There is a chronic appearing superior endplate compression fracture of L4 vertebral body. There is bibasilar atelectasis. Please note that evaluation of bowel loops is limited due to absence of oral contrast. Impression: Limited evaluation due to motion artifacts. 1. No definitive evidence of bowel obstruction, free air or abscess, to the extent visualized. 2. Cholelithiasis without evidence of acute cholecystitis. 3. A 1.2 cm indeterminate left adrenal nodule. 4. Other findings as described above. Suggest correlation with clinical findings, comparison with prior studies and follow up accordingly. Report Electronically Signed By: Hai Rodgers 08/30/2025 2:39:43 AM [EST]
--- NOTE | 2025-08-30 02:48 | PC.NURSE ---
THIS RN ENTERED PATIENTS ROOM. PATIENT YELLING I NEED TO GO TO THE BATHROOM LET ME GET UP . I NEED TO GO TO THE BATHROOM. . THIS RN OFFERED A BEDPAN TO THE PATIENT. PER PATIENT I WANT TO GET UP TO GO TO F BATHROOM. THIS RN INFORMED THE PATIENT DUE TO HER LEG PAIN A USE OF A BEDPAN TO PREVENT HER FROM FALLING. PATIENT REFUSED BEDPAN. PER PATIENT GET ME OUT OF BED . THIS RN AND BEEF CATTLE FARMER ASSISTED PATIENT TO A BEDSIDE COMMODE. PERICARE PERFORMED.
--- NOTE | 2025-08-30 02:55 | PC.NURSE ---
THIS RN SPOKE ON THE PHONE WITH DAUGHTER JEANETTE. PER DAUGHTER CAN YOU PLEASE CALL ME IF SHE GETS ADMITTED. . DAUGHTER CONTACT INFO JEANETTE [phone]
--- NOTE | 2025-08-30 03:29 | PC.NURSE ---
THIS RN WALKED INTO PATIENT ROOM TO FIX PATIENT AGENT TELEGRAPHER. PER PATIENT NO LEAVE ME ALONE I AM TAKING THEM OFF I WANT YOU TO LEAVE ME ALONE. . THIS RN EDUCATED THE PATIENT ON THE IMPORTANCE OF LEAVING ON THE AGENT TELEGRAPHER WHILE IN THE ER. PER PATIENT I DONT WANT TO WEAR THIS. LEAVE ME THE F ALONE. I AM TAKING THEM OFF [facility]. DONT TOUCH ME. GOODBYE.
--- NOTE | 2025-08-30 05:22 | PC.NURSE ---
NURSE TO NURSE REPORT GIVEN VIA THE PHONE TO PATRICIA GERBER AT [facility].
== END 2025-08-30 05:43 | disposition skilled nursing facility (03) ==
PROVIDERS: Emergency Provider Emergency Medicine; PCP Family Medicine
DX: R41.82 Altered mental status, unspecified (principal); E87.5 Hyperkalemia; N17.9 Acute kidney failure, unspecified; E11.22 Type 2 diabetes mellitus with diabetic chronic kidney disease; N18.9 Chronic kidney disease, unspecified; I50.22 Chronic systolic (congestive) heart failure; K21.9 Gastro-esophageal reflux disease without esophagitis; Z87.440 Personal history of urinary (tract) infections; M79.604 Pain in right leg; F01.53 Vascular dementia, unspecified severity, with mood disturbance; G89.29 Other chronic pain; Z86.73 Personal history of transient ischemic attack (TIA), and cerebral infarction without residual deficits; F32.A Depression, unspecified; M54.9 Dorsalgia, unspecified
CPT/HCPCS: 36415; 36600; 51701; 70450; 71045; 71275; 73552; 73590; 73610; 73630; 74177; 80048; 80053; 80069; 80307; 81001; 82010; 82140; 82248; 82803; 83036; 83605; 83735; 83880; 84132; 84145; 84439; 84443; 84484; 84550; 85025; 85379; 85652; 86140; 87040; 87502; 87635; 93005; 93970; 96361; 96374; 96375; 99285; A4649; J1815; J1938; J2270; J2405; J7030; Q9967